=== PATIENT | male | born 1955 | race Caucasian/White ===

== ENCOUNTER 2020-07-20 07:58 | Inpatient (IN) | payer BC ==
[2020-07-20] MEDS ORDERED: Sodium Chloride 0.9% 10 ML Syringe FLUSH PRN (08:24)
--- NOTE | 2020-07-20 09:24 | EDM.PDOC ---
ED HPI GENERAL MEDICAL PROBLEM - General Chief Complaint: Respiratory Problem Stated Complaint: COVID + SOB Time Seen by Provider: 07/20/20 08:17 Source of Information: Reports: Patient History Limitations: Reports: No Limitations - History of Present Illness INITIAL COMMENTS - FREE TEXT/NARRATIVE: The patient presents with shortness of breath, fever and generalized weakness. The patient's is COVID 19 positive. He got tested on Thursday and does not have results back yet. The patient has COPD. He has been more short of breath since Thursday. He is using his inhalers and it is not helping. He is not on oxygen at home. His oxygen saturations were 75% when he walked back. He has no chest pain. He denies having a cough. He has no abdominal pain. He does not have an appetite. He has no nausea, vomiting or diarrhea. He thinks he got infected from his brother. Onset: Gradual Duration: Week(s): Severity: Moderate Improves with: Reports: None Worsens with: Reports: None Associated Symptoms: Reports: Fever/Chills, Shortness of Breath. Denies: Chest Pain, Cough, Headaches, Nausea/Vomiting - Related Data Allergies Allergy/AdvReac Type Severity Reaction Status Date / Time No Known Allergies Allergy Verified 07/20/20 08:16 Home Meds: Home Meds Minocycline HCl 100 mg PO BID #20 tablet 04/30/14 [Rx] Omeprazole [Prilosec] 20 mg PO DAILY 04/30/14 [History] Theophylline 600 mg PO DAILY 04/30/14 [History] Tiotropium [Spiriva] 1 puff INH DAILY 04/30/14 [History] hydroCHLOROthiazide [Hydrochlorothiazide] 12.5 mg PO DAILY 04/30/14 [History] Albuterol Sulfate [Proair Digihaler] 90 mcg IH ASDIRECTED PRN 06/26/20 [History] Aspirin [Aspirin EC] 81 mg PO DAILY 06/26/20 [History] Fluticasone Propionate [Flonase] 2 spray NASBOTH BID 06/26/20 [History] Losartan [Cozaar] 50 mg PO DAILY 06/26/20 [History] Mometasone/Formoterol [Dulera 200 Mcg/5 Mcg Inhaler] 8.8 gm IH BID 06/26/20 [History] Pravastatin [Pravachol] 40 mg PO BEDTIME 06/26/20 [History] Tiotropium [Spiriva] 18 mcg INH BID 06/26/20 [History] Past Medical History HEENT History: Reports: Impaired Vision Other HEENT History: wears eyeglasses. Cardiovascular History: Reports: High Cholesterol, Hypertension Respiratory History: Reports: Bronchitis, Recurrent, COPD Gastrointestinal History: Reports: GERD - Infectious Disease History Infectious Disease History: Reports: Chicken Pox, Measles, Mumps - Past Surgical History GI Surgical History: Reports: Colonoscopy Social & Family History - Tobacco Use Tobacco Use Status *Q: Former Tobacco User Years of Tobacco use: 45 Packs/Tins Daily: 1 Used Tobacco, but Quit: Yes Month/Year Tobacco Last Used: oct 2011 - Caffeine Use Caffeine Use: Reports: None - Recreational Drug Use Recreational Drug Use: No ED ROS GENERAL - Review of Systems Review Of Systems: See Below Constitutional: Reports: Fever, Chills, Malaise, Weakness, Fatigue HEENT: Reports: No Symptoms Respiratory: Reports: Shortness of Breath. Denies: Cough Cardiovascular: Reports: No Symptoms Endocrine: Reports: No Symptoms GI/Abdominal: Reports: Decreased Appetite. Denies: Abdominal Pain, Diarrhea, Nausea, Vomiting : Reports: No Symptoms Musculoskeletal: Reports: No Symptoms ED EXAM, GENERAL - Physical Exam Exam: See Below Exam Limited By: No Limitations General Appearance: Alert, No Apparent Distress Ears: Normal External Exam Nose: Normal Inspection Head: Atraumatic, Normocephalic Neck: Normal Inspection Respiratory/Chest: No Respiratory Distress, Decreased Breath Sounds, Rhonchi Cardiovascular: Regular Rate, Rhythm, No Edema, No Murmur GI/Abdominal: Soft, Non-Tender, No Organomegaly, No Mass Back Exam: Normal Inspection Extremities: Normal Inspection #1 Interpretation EKG Date: 07/20/20 Time: 08:19 Rhythm: Other (sinus tachycardia) Rate (Beats/Min): 118 [place]: Normal P-Wave: Present QRS: Normal ST-T: Normal QT: Normal EKG Interpretation Comments: PVC Course - Vital Signs Last Recorded V/S: Last Vital Signs Temp 100.7 F H 07/20/20 07:58 Pulse 118 H 07/20/20 07:58 Resp 36 H 07/20/20 07:58 BP 149/86 H 07/20/20 07:58 Pulse Ox 75 L 07/20/20 07:58 - Orders/Labs/Meds Orders: Active Orders 24 hr Category Date Time Status Cardiac Monitoring [RC] . DIRECTED Care 07/20/20 08:24 Active EKG Documentation Completion [RC] STAT Care 07/20/20 08:25 Active Oxygen Therapy [RC] PRN Care 07/20/20 08:24 Active Peripheral IV Care [RC] . DIRECTED Care 07/20/20 08:25 Active Chest 1V Frontal [CR] Stat Exams 07/20/20 08:25 Taken CULTURE BLOOD [BC] Stat Lab 07/20/20 08:26 Ordered CULTURE BLOOD [BC] Stat Lab 07/20/20 08:26 Ordered Potassium Chloride [KCl 10 MEQ in Water 100 ML] 10 meq Med 07/20/20 10:00 Active Premix Bag 1 bag IV Q1H Sodium Chloride 0.9% [Normal Saline] 1,000 ml Med 07/20/20 10:15 Active IV ASDIRECTED Sodium Chloride 0.9% [Saline Flush] Med 07/20/20 08:24 Active 10 ml FLUSH ASDIRECTED PRN Blood Culture x2 Reflex Set [OM.PC] Stat Oth 07/20/20 08:26 Ordered Peripheral IV Insertion Adult [OM.PC] Stat Oth 07/20/20 08:24 Ordered Medication Orders Potassium Chloride 10 meq/ (Premix) 100 mls @ 100 mls/hr IV Q1H TEO Stop: 07/20/20 13:59 Last Admin: 07/20/20 10:17 Dose: 100 mls/hr Documented by: SULTANA Sodium Chloride (Normal Saline) 1,000 mls @ 150 mls/hr IV ASDIRECTED TEO Last Admin: 07/20/20 10:17 Dose: 150 mls/hr Documented by: SULTANA Sodium Chloride (Saline Flush) 10 ml FLUSH ASDIRECTED PRN PRN Reason: Keep Vein Open Last Admin: 07/20/20 08:50 Dose: 10 ml Documented by: SULTANA Labs: Laboratory Tests 07/20/20 07/20/20 07/20/20 Range/Units 08:42 08:50 08:50 WBC 7.86 (4.23-9.07) K/mm3 RBC 4.83 (4.63-6.08) M/mm3 Hgb 14.2 (13.7-17.5) gm/dl Hct 41.6 (40.1-51.0) % MCV 86.1 (79.0-92.2) fl MCH 29.4 (25.7-32.2) pg MCHC 34.1 (32.2-35.5) g/dl RDW Std Deviation 39.9 (35.1-43.9) fL Plt Count 411 H (163-337) K/mm3 MPV 8.5 L (9.4-12.3) fl Neut % (Auto) 90.2 H (34.0-67.9) % Lymph % (Auto) 5.9 L (21.8-53.1) % [place] % (Auto) 3.4 L (5.3-12.2) % Eos % (Auto) 0 L (0.8-7.0) Baso % (Auto) 0.0 L (0.1-1.2) % Neut # (Auto) 7.09 H (1.78-5.38) K/mm3 Lymph # (Auto) 0.46 L (1.32-3.57) K/mm3 [place] # (Auto) 0.27 L (0.30-0.82) K/mm3 Eos # (Auto) 0.00 L (0.04-0.54) K/mm3 Baso # (Auto) 0.00 L (0.01-0.08) K/mm3 Manual Slide Review Abnormal smear PT (9.7-11.7) SECONDS INR APTT (22-31) SECONDS D-Dimer, Quantitative (0.19-0.50) mg/L Puncture Site Rt radial ABG pH 7.51 H (7.35-7.45) ABG pCO2 29.5 L (35.0-45.0) mmHg ABG pO2 62.0 L (80.0-100.0) mmHg ABG HCO3 23.0 (22.0-26.0) meq/L ABG O2 Saturation 92.4 L (96.0-97.0) % ABG Base Excess 1.3 (-2-2.0) Nabeel Test Positive O2 Delivery Device Nasal cannula Oxygen Flow Rate 5.0 Sodium 136 (136-145) mEq/L Potassium 2.5 L (3.5-5.1) mEq/L Chloride 95 L (98-107) mEq/L Carbon Dioxide 24 (21-32) mEq/L Anion Gap 19.5 H (5-15) BUN 37 H (7-18) mg/dL Creatinine 1.6 H (0.7-1.3) mg/dL Est Cr Clr Drug Dosing 42.64 mL/min Estimated GFR (MDRD) 44 (>60) mL/min BUN/Creatinine Ratio 23.1 H (14-18) Glucose 132 H (80-115) mg/dL Lactic Acid (0.4-2.0) mmol/L Calcium 9.4 (8.5-10.1) mg/dL Ferritin (26-388) ng/ml Total Bilirubin 0.7 (0.2-1.0) mg/dL AST 65 H (15-37) U/L ALT 51 (16-63) U/L Alkaline Phosphatase 57 (46-116) U/L Lactate Dehydrogenase 516 H (85-227) U/L Troponin I 0.066 H* (0.00-0.056) ng/mL C-Reactive Protein 26.0 H* (<1.0) mg/dL NT-Pro-B Natriuret Pep (0-125) pg/mL Total Protein 7.9 (6.4-8.2) g/dl Albumin 2.9 L (3.4-5.0) g/dl Globulin 5.0 gm/dL Albumin/Globulin Ratio 0.6 L (1-2) 07/20/20 07/20/20 07/20/20 Range/Units 08:50 08:50 08:50 WBC (4.23-9.07) K/mm3 RBC (4.63-6.08) M/mm3 Hgb (13.7-17.5) gm/dl Hct (40.1-51.0) % MCV (79.0-92.2) fl MCH (25.7-32.2) pg MCHC (32.2-35.5) g/dl RDW Std Deviation (35.1-43.9) fL Plt Count (163-337) K/mm3 MPV (9.4-12.3) fl Neut % (Auto) (34.0-67.9) % Lymph % (Auto) (21.8-53.1) % [place] % (Auto) (5.3-12.2) % Eos % (Auto) (0.8-7.0) Baso % (Auto) (0.1-1.2) % Neut # (Auto) (1.78-5.38) K/mm3 Lymph # (Auto) (1.32-3.57) K/mm3 [place] # (Auto) (0.30-0.82) K/mm3 Eos # (Auto) (0.04-0.54) K/mm3 Baso # (Auto) (0.01-0.08) K/mm3 Manual Slide Review PT (9.7-11.7) SECONDS INR APTT (22-31) SECONDS D-Dimer, Quantitative (0.19-0.50) mg/L Puncture Site ABG pH (7.35-7.45) ABG pCO2 (35.0-45.0) mmHg ABG pO2 (80.0-100.0) mmHg ABG HCO3 (22.0-26.0) meq/L ABG O2 Saturation (96.0-97.0) % ABG Base Excess (-2-2.0) Nabeel Test O2 Delivery Device Oxygen Flow Rate Sodium (136-145) mEq/L Potassium (3.5-5.1) mEq/L Chloride (98-107) mEq/L Carbon Dioxide (21-32) mEq/L Anion Gap (5-15) BUN (7-18) mg/dL Creatinine (0.7-1.3) mg/dL Est Cr Clr Drug Dosing mL/min Estimated GFR (MDRD) (>60) mL/min BUN/Creatinine Ratio (14-18) Glucose (80-115) mg/dL Lactic Acid 1.8 (0.4-2.0) mmol/L Calcium (8.5-10.1) mg/dL Ferritin 1692 H (26-388) ng/ml Total Bilirubin (0.2-1.0) mg/dL AST (15-37) U/L ALT (16-63) U/L Alkaline Phosphatase (46-116) U/L Lactate Dehydrogenase (85-227) U/L Troponin I (0.00-0.056) ng/mL C-Reactive Protein (<1.0) mg/dL NT-Pro-B Natriuret Pep 261 H (0-125) pg/mL Total Protein (6.4-8.2) g/dl Albumin (3.4-5.0) g/dl Globulin gm/dL Albumin/Globulin Ratio (1-2) 07/20/20 Range/Units 09:01 WBC (4.23-9.07) K/mm3 RBC (4.63-6.08) M/mm3 Hgb (13.7-17.5) gm/dl Hct (40.1-51.0) % MCV (79.0-92.2) fl MCH (25.7-32.2) pg MCHC (32.2-35.5) g/dl RDW Std Deviation (35.1-43.9) fL Plt Count (163-337) K/mm3 MPV (9.4-12.3) fl Neut % (Auto) (34.0-67.9) % Lymph % (Auto) (21.8-53.1) % [place] % (Auto) (5.3-12.2) % Eos % (Auto) (0.8-7.0) Baso % (Auto) (0.1-1.2) % Neut # (Auto) (1.78-5.38) K/mm3 Lymph # (Auto) (1.32-3.57) K/mm3 [place] # (Auto) (0.30-0.82) K/mm3 Eos # (Auto) (0.04-0.54) K/mm3 Baso # (Auto) (0.01-0.08) K/mm3 Manual Slide Review PT 11.2 (9.7-11.7) SECONDS INR 1.05 APTT 27 (22-31) SECONDS D-Dimer, Quantitative 1.01 H (0.19-0.50) mg/L Puncture Site ABG pH (7.35-7.45) ABG pCO2 (35.0-45.0) mmHg ABG pO2 (80.0-100.0) mmHg ABG HCO3 (22.0-26.0) meq/L ABG O2 Saturation (96.0-97.0) % ABG Base Excess (-2-2.0) Nabeel Test O2 Delivery Device Oxygen Flow Rate Sodium (136-145) mEq/L Potassium (3.5-5.1) mEq/L Chloride (98-107) mEq/L Carbon Dioxide (21-32) mEq/L Anion Gap (5-15) BUN (7-18) mg/dL Creatinine (0.7-1.3) mg/dL Est Cr Clr Drug Dosing mL/min Estimated GFR (MDRD) (>60) mL/min BUN/Creatinine Ratio (14-18) Glucose (80-115) mg/dL Lactic Acid (0.4-2.0) mmol/L Calcium (8.5-10.1) mg/dL Ferritin (26-388) ng/ml Total Bilirubin (0.2-1.0) mg/dL AST (15-37) U/L ALT (16-63) U/L Alkaline Phosphatase (46-116) U/L Lactate Dehydrogenase (85-227) U/L Troponin I (0.00-0.056) ng/mL C-Reactive Protein (<1.0) mg/dL NT-Pro-B Natriuret Pep (0-125) pg/mL Total Protein (6.4-8.2) g/dl Albumin (3.4-5.0) g/dl Globulin gm/dL Albumin/Globulin Ratio (1-2) Meds: Medications Generic Name Dose Route Start Last Admin Trade Name Freq PRN Reason Stop Dose Admin Potassium Chloride 10 meq/ 100 mls @ 100 mls/hr 07/20/20 10:00 07/20/20 10:17 Premix IV 07/20/20 13:59 100 mls/hr Q1H TEO Administration Sodium Chloride 1,000 mls @ 150 mls/hr 07/20/20 10:15 07/20/20 10:17 Normal Saline IV 150 mls/hr ASDIRECTED TEO Administration Sodium Chloride 10 ml 07/20/20 08:24 07/20/20 08:50 Saline Flush FLUSH 10 ml ASDIRECTED PRN Administration Keep Vein Open - Re-Assessments/Exams Free Text/Narrative Re-Assessment/Exam: 07/20/20 09:25 I ordered oxygen, IV saline lock, labs, CXR, ABG, blood cultures and lactic acid. 07/20/20 10:42 His CXR shows lung choe show prominence to the pulmonary interstitium. M inimal ground-glass airspace disease at the lower lung choe bilaterally. Followup radiographs recommended after appropriate therapy. His WBC was normal. His platelets were elevated at 411. His D-dimer was elevated at 1.01. His pH was elevated at 7.51. His pCO2 was low at 29.5. His pO2 was low at 62. His O2 saturations were 92.4. His K was low at 2.5. I have ordered 40meq of KCl. His anion gap was elevated at 19.5. His creatinine is elevated at 1.6. His glucose is 132. His lactic acid is normal at 1.8. His ferritin is elevated at 1692. His AST is elevated at 65. His LDH is elevated at 516. His troponin is elevated at 0.066. His EKG shows a sinus tachycardia with no acute changes. His CRP is 26. I called the state and his test has not been done yet. They will be checking on it. I have ordered the 1 hour test for us. The patient does need to be admitted. I called Dr Correia and he agreed to the admission. Departure - Departure Time of Disposition: 10:50 Disposition: Admitted As Inpatient 67 Condition: Serious Clinical Impression: COVID-19, Pneumonia due to COVID-19 virus, Renal insufficiency, Hypokalemia, Hypoxia - Discharge Information Referrals: Serjio Pierce MD [Primary Care Provider] - Forms: ED Department Discharge Sepsis Event Note (ED) - Evaluation Sepsis Screening Result: No Definite Risk - Focused Exam Vital Signs: Vital Signs Temp Pulse Resp BP Pulse Ox 07/20/20 07:58 100.7 F H 118 H 36 H 149/86 H 75 L - My Orders Last 24 Hours: My Active Orders 07/20/20 08:24 Cardiac Monitoring [RC] . DIRECTED Oxygen Therapy [RC] PRN Sodium Chloride 0.9% [Saline Flush] 10 ml FLUSH ASDIRECTED PRN Peripheral IV Insertion Adult [OM.PC] Stat 07/20/20 08:25 EKG Documentation Completion [RC] STAT Peripheral IV Care [RC] . DIRECTED Chest 1V Frontal [CR] Stat 07/20/20 08:26 CULTURE BLOOD [BC] Stat CULTURE BLOOD [BC] Stat Blood Culture x2 Reflex Set [OM.PC] Stat 07/20/20 10:00 Potassium Chloride [KCl 10 MEQ in Water 100 ML] 10 meq Premix Bag 1 bag IV Q1H 07/20/20 10:15 Sodium Chloride 0.9% [Normal Saline] 1,000 ml IV ASDIRECTED - Assessment/Plan Last 24 Hours: My Active Orders 07/20/20 08:24 Cardiac Monitoring [RC] . DIRECTED Oxygen Therapy [RC] PRN Sodium Chloride 0.9% [Saline Flush] 10 ml FLUSH ASDIRECTED PRN Peripheral IV Insertion Adult [OM.PC] Stat 07/20/20 08:25 EKG Documentation Completion [RC] STAT Peripheral IV Care [RC] . DIRECTED Chest 1V Frontal [CR] Stat 07/20/20 08:26 CULTURE BLOOD [BC] Stat CULTURE BLOOD [BC] Stat Blood Culture x2 Reflex Set [OM.PC] Stat 07/20/20 10:00 Potassium Chloride [KCl 10 MEQ in Water 100 ML] 10 meq Premix Bag 1 bag IV Q1H 07/20/20 10:15 Sodium Chloride 0.9% [Normal Saline] 1,000 ml IV ASDIRECTED
[2020-07-20] MEDS ORDERED: Sodium Chloride 0.9% 1,000 ML IV SCH (10:15)
[2020-07-20] MEDS: Potassium Chloride 10 MEQ in Premix Bag 1 BAG IV SCH ×4 (10:17→15:20)
[2020-07-20] MEDS ORDERED: Acetaminophen 325 MG Tab PO PRN (11:43)
[2020-07-20] MEDS ORDERED: Albuterol 0.083% 2.5 MG/3 ML Neb Soln NEB PRN (11:43)
[2020-07-20] MEDS ORDERED: Ondansetron 4 MG/2 ML SDV IV PRN (11:43)
[2020-07-20] MEDS ORDERED: Sodium Chloride 0.9% 250 ML IV SCH (14:30)
--- NOTE | 2020-07-20 14:39 | PCM.HP.2 ---
H&P History of Present Illness - General Date of Service: 07/20/20 Admit Problem/Dx: Admission Diagnosis/Problem Admission Diagnosis/Problem Hypoxia Source of Information: Patient, Provider History Limitations: Reports: No Limitations - History of Present Illness Initial Comments - Free Text/Narative: The patient presents with shortness of breath, fever and generalized weakness. The patient's is COVID 19 positive. He states that his [id number] is also positive for COVID and was working with him in close contact about 2 weeks ago. He states he started feeling unwell about 7 days ago. Generalized fatigue and body aches. He denies headache and loss of taste or smell he also denies sore throat. However he states he does have a persistent nonproductive cough and diarrhea. He has also had a poor appetite. Denies any fever or chills. He got tested on Thursday and does not have results back yet. The patient has COPD. He has been more short of breath since Thursday. He is using his inhalers and it is not helping. He is not on oxygen at home. His oxygen saturations were 75% when he walked back. He has no chest pain. He has no abdominal pain. He does not have an appetite. - Related Data Allergies/Adverse Reactions: Allergies Allergy/AdvReac Type Severity Reaction Status Date / Time No Known Allergies Allergy Verified 07/20/20 13:24 Home Medications: Home Meds Minocycline HCl 100 mg PO BID #20 tablet 04/30/14 [Rx] Omeprazole [Prilosec] 20 mg PO DAILY 04/30/14 [History] Theophylline 600 mg PO DAILY 04/30/14 [History] Tiotropium [Spiriva] 1 puff INH DAILY 04/30/14 [History] hydroCHLOROthiazide [Hydrochlorothiazide] 12.5 mg PO DAILY 04/30/14 [History] Albuterol Sulfate [Proair Digihaler] 90 mcg IH ASDIRECTED PRN 06/26/20 [History] Aspirin [Aspirin EC] 81 mg PO DAILY 06/26/20 [History] Fluticasone Propionate [Flonase] 2 spray NASBOTH BID 06/26/20 [History] Losartan [Cozaar] 50 mg PO DAILY 06/26/20 [History] Mometasone/Formoterol [Dulera 200 Mcg/5 Mcg Inhaler] 8.8 gm IH BID 06/26/20 [History] Pravastatin [Pravachol] 40 mg PO BEDTIME 06/26/20 [History] Tiotropium [Spiriva] 18 mcg INH BID 06/26/20 [History] Past Medical History HEENT History: Reports: Impaired Vision Other HEENT History: wears eyeglasses. Cardiovascular History: Reports: High Cholesterol, Hypertension Respiratory History: Reports: Bronchitis, Recurrent, COPD Gastrointestinal History: Reports: GERD - Infectious Disease History Infectious Disease History: Reports: Chicken Pox, Measles, Mumps - Past Surgical History GI Surgical History: Reports: Colonoscopy Social & Family History - Family History Family Medical History: Noncontributory - Tobacco Use Tobacco Use Status *Q: Former Tobacco User Years of Tobacco use: 40 Packs/Tins Daily: 1 Used Tobacco, but Quit: Yes Month/Year Tobacco Last Used: oct 2011 - Caffeine Use Caffeine Use: Reports: None - Recreational Drug Use Recreational Drug Use: No H&P Review of Systems - Review of Systems: Review Of Systems: See Below General: Reports: Malaise, Weakness, Decreased Appetite HEENT: Denies: Headaches, Sore Throat Pulmonary: Reports: Shortness of Breath, Cough. Denies: Sputum Cardiovascular: Reports: No Symptoms Gastrointestinal: Reports: Diarrhea, Decreased Appetite. Denies: Nausea, Vomiting Genitourinary: Reports: No Symptoms Musculoskeletal: Reports: No Symptoms Skin: Reports: No Symptoms Psychiatric: Reports: No Symptoms Neurological: Reports: No Symptoms Hematologic/Lymphatic: Reports: No Symptoms Immunologic: Reports: No Symptoms Exam - Exam Exam: See Below - Vital Signs Vital Signs: Last Vital Signs Temp 98.5 F 07/20/20 12:48 Pulse 98 07/20/20 12:48 Resp 32 H 07/20/20 12:48 BP 110/64 07/20/20 12:48 Pulse Ox 90 L 07/20/20 12:48 Weight: 186 lb 6.413 oz - Exam Quality Assessment: Supplemental Oxygen (5 L per nasal cannula), DVT Prophylaxis (Will be on Lovenox) General: Alert, Oriented, Cooperative, Mild Distress HEENT: Conjunctiva Clear, EOMI, Hearing Intact, Mucosa Moist & Hernandez, Pupils Eq ual, Pupils Reactive Neck: Supple, Trachea Midline. No: Lymphadenopathy Lungs: Decreased Breath Sounds, Crackles (Fine crackles noted in the bases) Cardiovascular: Regular Rate, Regular Rhythm GI/Abdominal Exam: Normal Bowel Sounds, Soft, Non-Tender, No Distention (Male) Exam: Deferred Rectal (Males) Exam: Deferred Back Exam: Normal Inspection, Full Range of Motion Extremities: Normal Inspection, Normal Range of Motion, Non-Tender, No Pedal Edema, Normal Capillary Refill Peripheral Pulses: 2+: Radial (L), Radial (R), Dorsalis Pedis (L), Dorsalis Pedis (R) Skin: Warm, Dry, Intact Neurological: Cranial Nerves Intact Neuro Extensive - Mental Status: Alert, Oriented x3, Normal Mood/Affect, Normal Cognition, Memory Intact Psychiatric: Alert, Normal Affect, Normal Mood - Patient Data Lab Results Last 24 hrs: Laboratory Results - last 24 hr 07/20/20 07/20/20 07/20/20 Range/Units 08:42 08:50 08:50 WBC 7.86 (4.23-9.07) K/mm3 RBC 4.83 (4.63-6.08) M/mm3 Hgb 14.2 (13.7-17.5) gm/dl Hct 41.6 (40.1-51.0) % MCV 86.1 (79.0-92.2) fl MCH 29.4 (25.7-32.2) pg MCHC 34.1 (32.2-35.5) g/dl RDW Std Deviation 39.9 (35.1-43.9) fL Plt Count 411 H (163-337) K/mm3 MPV 8.5 L (9.4-12.3) fl Neut % (Auto) 90.2 H (34.0-67.9) % Lymph % (Auto) 5.9 L (21.8-53.1) % Ray % (Auto) 3.4 L (5.3-12.2) % Eos % (Auto) 0 L (0.8-7.0) Baso % (Auto) 0.0 L (0.1-1.2) % Neut # (Auto) 7.09 H (1.78-5.38) K/mm3 Lymph # (Auto) 0.46 L (1.32-3.57) K/mm3 Ray # (Auto) 0.27 L (0.30-0.82) K/mm3 Eos # (Auto) 0.00 L (0.04-0.54) K/mm3 Baso # (Auto) 0.00 L (0.01-0.08) K/mm3 Manual Slide Review Abnormal smear PT (9.7-11.7) SECONDS INR APTT (22-31) SECONDS D-Dimer, Quantitative (0.19-0.50) mg/L Puncture Site Rt radial ABG pH 7.51 H (7.35-7.45) ABG pCO2 29.5 L (35.0-45.0) mmHg ABG pO2 62.0 L (80.0-100.0) mmHg ABG HCO3 23.0 (22.0-26.0) meq/L ABG O2 Saturation 92.4 L (96.0-97.0) % ABG Base Excess 1.3 (-2-2.0) Nabeel Test Positive O2 Delivery Device Nasal cannula Oxygen Flow Rate 5.0 Sodium 136 (136-145) mEq/L Potassium 2.5 L (3.5-5.1) mEq/L Chloride 95 L (98-107) mEq/L Carbon Dioxide 24 (21-32) mEq/L Anion Gap 19.5 H (5-15) BUN 37 H (7-18) mg/dL Creatinine 1.6 H (0.7-1.3) mg/dL Est Cr Clr Drug Dosing 42.64 mL/min Estimated GFR (MDRD) 44 (>60) mL/min BUN/Creatinine Ratio 23.1 H (14-18) Glucose 132 H (80-115) mg/dL Lactic Acid (0.4-2.0) mmol/L Calcium 9.4 (8.5-10.1) mg/dL Ferritin (26-388) ng/ml Total Bilirubin 0.7 (0.2-1.0) mg/dL AST 65 H (15-37) U/L ALT 51 (16-63) U/L Alkaline Phosphatase 57 (46-116) U/L Lactate Dehydrogenase 516 H (85-227) U/L Troponin I 0.066 H* (0.00-0.056) ng/mL C-Reactive Protein 26.0 H* (<1.0) mg/dL NT-Pro-B Natriuret Pep (0-125) pg/mL Total Protein 7.9 (6.4-8.2) g/dl Albumin 2.9 L (3.4-5.0) g/dl Globulin 5.0 gm/dL Albumin/Globulin Ratio 0.6 L (1-2) Vitamin D 25-Hydroxy (30.0-100.0) ng/ml SARS-CoV-2 RNA (TIKA) (NEGATIVE) Blood Type 07/20/20 07/20/20 07/20/20 Range/Units 08:50 08:50 08:50 WBC (4.23-9.07) K/mm3 RBC (4.63-6.08) M/mm3 Hgb (13.7-17.5) gm/dl Hct (40.1-51.0) % MCV (79.0-92.2) fl MCH (25.7-32.2) pg MCHC (32.2-35.5) g/dl RDW Std Deviation (35.1-43.9) fL Plt Count (163-337) K/mm3 MPV (9.4-12.3) fl Neut % (Auto) (34.0-67.9) % Lymph % (Auto) (21.8-53.1) % Ray % (Auto) (5.3-12.2) % Eos % (Auto) (0.8-7.0) Baso % (Auto) (0.1-1.2) % Neut # (Auto) (1.78-5.38) K/mm3 Lymph # (Auto) (1.32-3.57) K/mm3 Ray # (Auto) (0.30-0.82) K/mm3 Eos # (Auto) (0.04-0.54) K/mm3 Baso # (Auto) (0.01-0.08) K/mm3 Manual Slide Review PT (9.7-11.7) SECONDS INR APTT (22-31) SECONDS D-Dimer, Quantitative (0.19-0.50) mg/L Puncture Site ABG pH (7.35-7.45) ABG pCO2 (35.0-45.0) mmHg ABG pO2 (80.0-100.0) mmHg ABG HCO3 (22.0-26.0) meq/L ABG O2 Saturation (96.0-97.0) % ABG Base Excess (-2-2.0) Nabeel Test O2 Delivery Device Oxygen Flow Rate Sodium (136-145) mEq/L Potassium (3.5-5.1) mEq/L Chloride (98-107) mEq/L Carbon Dioxide (21-32) mEq/L Anion Gap (5-15) BUN (7-18) mg/dL Creatinine (0.7-1.3) mg/dL Est Cr Clr Drug Dosing mL/min Estimated GFR (MDRD) (>60) mL/min BUN/Creatinine Ratio (14-18) Glucose (80-115) mg/dL Lactic Acid 1.8 (0.4-2.0) mmol/L Calcium (8.5-10.1) mg/dL Ferritin 1692 H (26-388) ng/ml Total Bilirubin (0.2-1.0) mg/dL AST (15-37) U/L ALT (16-63) U/L Alkaline Phosphatase (46-116) U/L Lactate Dehydrogenase (85-227) U/L Troponin I (0.00-0.056) ng/mL C-Reactive Protein (<1.0) mg/dL NT-Pro-B Natriuret Pep 261 H (0-125) pg/mL Total Protein (6.4-8.2) g/dl Albumin (3.4-5.0) g/dl Globulin gm/dL Albumin/Globulin Ratio (1-2) Vitamin D 25-Hydroxy (30.0-100.0) ng/ml SARS-CoV-2 RNA (TIKA) (NEGATIVE) Blood Type 07/20/20 07/20/20 07/20/20 Range/Units 08:50 08:50 09:01 WBC (4.23-9.07) K/mm3 RBC (4.63-6.08) M/mm3 Hgb (13.7-17.5) gm/dl Hct (40.1-51.0) % MCV (79.0-92.2) fl MCH (25.7-32.2) pg MCHC (32.2-35.5) g/dl RDW Std Deviation (35.1-43.9) fL Plt Count (163-337) K/mm3 MPV (9.4-12.3) fl Neut % (Auto) (34.0-67.9) % Lymph % (Auto) (21.8-53.1) % Ray % (Auto) (5.3-12.2) % Eos % (Auto) (0.8-7.0) Baso % (Auto) (0.1-1.2) % Neut # (Auto) (1.78-5.38) K/mm3 Lymph # (Auto) (1.32-3.57) K/mm3 Ray # (Auto) (0.30-0.82) K/mm3 Eos # (Auto) (0.04-0.54) K/mm3 Baso # (Auto) (0.01-0.08) K/mm3 Manual Slide Review PT 11.2 (9.7-11.7) SECONDS INR 1.05 APTT 27 (22-31) SECONDS D-Dimer, Quantitative 1.01 H (0.19-0.50) mg/L Puncture Site ABG pH (7.35-7.45) ABG pCO2 (35.0-45.0) mmHg ABG pO2 (80.0-100.0) mmHg ABG HCO3 (22.0-26.0) meq/L ABG O2 Saturation (96.0-97.0) % ABG Base Excess (-2-2.0) Nabeel Test O2 Delivery Device Oxygen Flow Rate Sodium (136-145) mEq/L Potassium (3.5-5.1) mEq/L Chloride (98-107) mEq/L Carbon Dioxide (21-32) mEq/L Anion Gap (5-15) BUN (7-18) mg/dL Creatinine (0.7-1.3) mg/dL Est Cr Clr Drug Dosing mL/min Estimated GFR (MDRD) (>60) mL/min BUN/Creatinine Ratio (14-18) Glucose (80-115) mg/dL Lactic Acid (0.4-2.0) mmol/L Calcium (8.5-10.1) mg/dL Ferritin (26-388) ng/ml Total Bilirubin (0.2-1.0) mg/dL AST (15-37) U/L ALT (16-63) U/L Alkaline Phosphatase (46-116) U/L Lactate Dehydrogenase (85-227) U/L Troponin I (0.00-0.056) ng/mL C-Reactive Protein (<1.0) mg/dL NT-Pro-B Natriuret Pep (0-125) pg/mL Total Protein (6.4-8.2) g/dl Albumin (3.4-5.0) g/dl Globulin gm/dL Albumin/Globulin Ratio (1-2) Vitamin D 25-Hydroxy 29.5 L (30.0-100.0) ng/ml SARS-CoV-2 RNA (TIKA) (NEGATIVE) Blood Type O POSITIVE 07/20/20 07/20/20 Range/Units 11:25 13:05 WBC (4.23-9.07) K/mm3 RBC (4.63-6.08) M/mm3 Hgb (13.7-17.5) gm/dl Hct (40.1-51.0) % MCV (79.0-92.2) fl MCH (25.7-32.2) pg MCHC (32.2-35.5) g/dl RDW Std Deviation (35.1-43.9) fL Plt Count (163-337) K/mm3 MPV (9.4-12.3) fl Neut % (Auto) (34.0-67.9) % Lymph % (Auto) (21.8-53.1) % Ray % (Auto) (5.3-12.2) % Eos % (Auto) (0.8-7.0) Baso % (Auto) (0.1-1.2) % Neut # (Auto) (1.78-5.38) K/mm3 Lymph # (Auto) (1.32-3.57) K/mm3 Ray # (Auto) (0.30-0.82) K/mm3 Eos # (Auto) (0.04-0.54) K/mm3 Baso # (Auto) (0.01-0.08) K/mm3 Manual Slide Review PT (9.7-11.7) SECONDS INR APTT (22-31) SECONDS D-Dimer, Quantitative (0.19-0.50) mg/L Puncture Site ABG pH (7.35-7.45) ABG pCO2 (35.0-45.0) mmHg ABG pO2 (80.0-100.0) mmHg ABG HCO3 (22.0-26.0) meq/L ABG O2 Saturation (96.0-97.0) % ABG Base Excess (-2-2.0) Nabeel Test O2 Delivery Device Oxygen Flow Rate Sodium (136-145) mEq/L Potassium (3.5-5.1) mEq/L Chloride (98-107) mEq/L Carbon Dioxide (21-32) mEq/L Anion Gap (5-15) BUN (7-18) mg/dL Creatinine (0.7-1.3) mg/dL Est Cr Clr Drug Dosing mL/min Estimated GFR (MDRD) (>60) mL/min BUN/Creatinine Ratio (14-18) Glucose (80-115) mg/dL Lactic Acid (0.4-2.0) mmol/L Calcium (8.5-10.1) mg/dL Ferritin (26-388) ng/ml Total Bilirubin (0.2-1.0) mg/dL AST (15-37) U/L ALT (16-63) U/L Alkaline Phosphatase (46-116) U/L Lactate Dehydrogenase (85-227) U/L Troponin I 0.063 H* (0.00-0.056) ng/mL C-Reactive Protein (<1.0) mg/dL NT-Pro-B Natriuret Pep (0-125) pg/mL Total Protein (6.4-8.2) g/dl Albumin (3.4-5.0) g/dl Globulin gm/dL Albumin/Globulin Ratio (1-2) Vitamin D 25-Hydroxy (30.0-100.0) ng/ml SARS-CoV-2 RNA (TIKA) Positive H (NEGATIVE) Blood Type Result Diagrams: 07/20/20 08:50 07/20/20 08:50 Sepsis Event Note - Evaluation Sepsis Screening Result: No Definite Risk - Focused Exam Vital Signs: Vital Signs Temp Pulse Resp BP Pulse Ox 07/20/20 12:48 98.5 F 98 32 H 110/64 90 L 07/20/20 07:58 100.7 F H 118 H 36 H 149/86 H 75 L - Problem List (1) COVID-19 SNOMED Code(s): 134743165 ICD Code: U07.1 - COVID-19 Status: Acute Priority: High Current Visit: Yes (2) Hypokalemia SNOMED Code(s): 43898507 ICD Code: E87.6 - HYPOKALEMIA Status: Acute Priority: High Current Visit: Yes (3) Hypoxia SNOMED Code(s): 277796514 ICD Code: R09.02 - HYPOXEMIA Status: Acute Priority: High Current Visit: Yes (4) Pneumonia due to COVID-19 virus SNOMED Code(s): 935759423069814609 ICD Code: U07.1 - COVID-19; J12.89 - OTHER VIRAL PNEUMONIA Status: Acute Priority: High Current Visit: Yes (5) Renal insufficiency SNOMED Code(s): 079315223, 881506178 ICD Code: N28.9 - DISORDER OF KIDNEY AND URETER, UNSPECIFIED Status: Acute Priority: High Current Visit: Yes Problem List Initiated/Reviewed/Updated: Yes Orders Last 24hrs: Active Orders 24 hr Category Date Time Status Patient Status [ADT] Routine ADT 07/20/20 11:58 Active Cardiac Monitoring [RC] . DIRECTED Care 07/20/20 08:24 Active EKG Documentation Completion [RC] STAT Care 07/20/20 08:25 Active Height and Weight [RC] 04 Care 07/20/20 11:43 Active Incentive Spirometry [RT Incentive Spirometry] [RC] Care 07/20/20 12:06 Active Q1HWA Nurse Communication: Isolation [RC] ASDIRECTED Care 07/20/20 12:09 Active Oxygen Therapy [RC] PRN Care 07/20/20 08:24 Active Oxygen Therapy [RC] PRN Care 07/20/20 11:58 Active Peripheral IV Care [RC] . DIRECTED Care 07/20/20 08:25 Active Pulse Oximetry [RC] CONTINUOUS Care 07/20/20 12:00 Active RT Aerosol Therapy [RC] ASDIRECTED Care 07/20/20 12:01 Active Up With Assistance [RC] ASDIRECTED Care 07/20/20 11:43 Active VTE/DVT Education [RC] BID Care 07/20/20 11:58 Active Verify Patient Consent Obtain [RC] ASDIRECTED Care 07/20/20 12:08 Active Vital Signs [RC] Q4H Care 07/20/20 11:58 Active Consult to Meat Grading Machine Operator [CONS] Routine Cons 07/20/20 11:43 Active Consult to Spiritual Care [CONS] Routine Cons 07/20/20 11:43 Active Respiratory Care Assess and Treatment [CONS] Routine Cons 07/20/20 11:43 Active Regular Diet [DIET] Diet 07/20/20 Lunch Active Chest 1V Frontal [CR] Stat Exams 07/20/20 08:25 Taken ABO/RH TYPE [BBK] Routine Lab 07/20/20 08:50 Results C-REACTIVE PROTEIN [CHEM] DAILY Lab 07/21/20 05:11 Ordered C-REACTIVE PROTEIN [CHEM] DAILY Lab 07/22/20 05:11 Ordered C-REACTIVE PROTEIN [CHEM] DAILY Lab 07/23/20 05:11 Ordered C-REACTIVE PROTEIN [CHEM] DAILY Lab 07/24/20 05:11 Ordered C-REACTIVE PROTEIN [CHEM] DAILY Lab 07/25/20 05:11 Ordered CBC WITH AUTO DIFF [HEME] DAILY Lab 07/21/20 05:11 Ordered CBC WITH AUTO DIFF [HEME] DAILY Lab 07/22/20 05:11 Ordered CBC WITH AUTO DIFF [HEME] DAILY Lab 07/23/20 05:11 Ordered CBC WITH AUTO DIFF [HEME] DAILY Lab 07/24/20 05:11 Ordered CBC WITH AUTO DIFF [HEME] DAILY Lab 07/25/20 05:11 Ordered COMPREHENSIVE METABOLIC PN,CMP [CHEM] DAILY Lab 07/21/20 05:11 Ordered COMPREHENSIVE METABOLIC PN,CMP [CHEM] DAILY Lab 07/22/20 05:11 Ordered COMPREHENSIVE METABOLIC PN,CMP [CHEM] DAILY Lab 07/23/20 05:11 Ordered COMPREHENSIVE METABOLIC PN,CMP [CHEM] DAILY Lab 07/24/20 05:11 Ordered COMPREHENSIVE METABOLIC PN,CMP [CHEM] DAILY Lab 07/25/20 05:11 Ordered CULTURE BLOOD [BC] Stat Lab 07/20/20 08:26 Ordered CULTURE BLOOD [BC] Stat Lab 07/20/20 08:26 Ordered D-DIMER QUANTITATIVE [COAG] DAILY Lab 07/21/20 05:11 Ordered D-DIMER QUANTITATIVE [COAG] DAILY Lab 07/22/20 05:11 Ordered D-DIMER QUANTITATIVE [COAG] DAILY Lab 07/23/20 05:11 Ordered D-DIMER QUANTITATIVE [COAG] DAILY Lab 07/24/20 05:11 Ordered D-DIMER QUANTITATIVE [COAG] DAILY Lab 07/25/20 05:11 Ordered FRESH FROZEN PLASMA [BBK] Routine Lab 07/20/20 08:50 Results MAGNESIUM [CHEM] DAILY Lab 07/21/20 05:11 Ordered MAGNESIUM [CHEM] DAILY Lab 07/22/20 05:11 Ordered MAGNESIUM [CHEM] DAILY Lab 07/23/20 05:11 Ordered MAGNESIUM [CHEM] DAILY Lab 07/24/20 05:11 Ordered MAGNESIUM [CHEM] DAILY Lab 07/25/20 05:11 Ordered PHOSPHORUS [CHEM] DAILY Lab 07/21/20 05:11 Ordered PHOSPHORUS [CHEM] DAILY Lab 07/22/20 05:11 Ordered PHOSPHORUS [CHEM] DAILY Lab 07/23/20 05:11 Ordered PHOSPHORUS [CHEM] DAILY Lab 07/24/20 05:11 Ordered PHOSPHORUS [CHEM] DAILY Lab 07/25/20 05:11 Ordered PROCALCITONIN [REF] Stat Lab 07/20/20 08:50 Received THEOPHYLLINE [REF] Stat Lab 07/20/20 08:50 Received Acetaminophen [TylenoL] Med 07/20/20 11:43 Active 650 mg PO Q4H PRN Albuterol [Proventil Neb Soln] Med 07/20/20 11:43 Active 2.5 mg NEB Q2H PRN Enoxaparin [Lovenox] Med 07/20/20 12:15 Active 40 mg SUBCUT Q12H Ondansetron [Zofran] Med 07/20/20 11:43 Active 4 mg IV Q6H PRN Remdesivir (Eua) [Remdesivir (EUA)] 100 mg Med 07/21/20 12:30 Active Sodium Chloride 0.9% [Normal Saline] 100 ml IV Q24H Sodium Chloride 0.9% [Normal Saline] 1,000 ml Med 07/20/20 10:15 Active IV ASDIRECTED Sodium Chloride 0.9% [Normal Saline] 250 ml Med 07/20/20 14:30 Active IV ASDIRECTED Sodium Chloride 0.9% [Saline Flush] Med 07/20/20 08:24 Active 10 ml FLUSH ASDIRECTED PRN dexAMETHasone Med 07/20/20 12:15 Active 6 mg PO DAILY Blood Culture x2 Reflex Set [OM.PC] Stat Oth 07/20/20 08:26 Ordered Isolation [COMM] Stat Oth 07/20/20 12:09 Ordered Peripheral IV Insertion Adult [OM.PC] Stat Oth 07/20/20 08:24 Ordered RT Acapella [RESPCARE] Routine Oth 07/20/20 12:09 Active Transfuse Fresh Frozen Plasma [COMM] Routine Oth 07/20/20 12:08 Ordered Resuscitation Status Routine Resus Stat 07/20/20 11:43 Ordered Medication Orders Acetaminophen (Tylenol) 650 mg PO Q4H PRN PRN Reason: Pain (Mild 1-3)/fever Albuterol (Proventil Neb Soln) 2.5 mg NEB Q2H PRN PRN Reason: Shortness Of Breath/wheezing Dexamethasone (Dexamethasone) 6 mg PO DAILY [facility] Stop: 07/29/20 09:01 Enoxaparin Sodium (Lovenox) 40 mg SUBCUT Q12H TEO Sodium Chloride (Normal Saline) 1,000 mls @ 150 mls/hr IV ASDIRECTED [facility] Last Admin: 07/20/20 10:17 Dose: 150 mls/hr Documented by: SULTANA Remdesivir 100 mg/ Sodium (Chloride) 100 mls @ 100 mls/hr IV Q24H TEO Stop: 07/24/20 13:29 Sodium Chloride (Normal Saline) 250 mls @ 125 mls/hr IV ASDIRECTED [facility] Stop: 07/20/20 23:00 Ondansetron HCl (Zofran) 4 mg IV Q6H PRN PRN Reason: Nausea/Vomiting Sodium Chloride (Saline Flush) 10 ml FLUSH ASDIRECTED PRN PRN Reason: Keep Vein Open Last Admin: 07/20/20 08:50 Dose: 10 ml Documented by: SULTANA Assessment/Plan Comment:: 07/20/10 * 1 week history of weakness, general malaise, poor appetite, shortness of melina ath and diarrhea * History of exposure to COVID-19 * History of COPD * Chest x-ray shows lung choe show prominence to the pulmonary interstitium. Minimal groundglass airspace disease at the lower lung choe bilaterally. * The patient did receive 40 mEq of potassium IV in the ER. Lab results: * Platelet count 411 * Potassium 2.5 * Anion gap 19.5 * BUN 37 * Creatinine 1.6 * GFR 44 * Glucose 132 * LDH 516 * Troponin 0 0.066 * C-reactive protein 26.0 * Lactic acid 1.8 * Ferritin 1692 * BNP 261 * D-dimer 1.01 Arterial blood gases: * pH 7.51 * PCO2 29.5 * PO2 62.0 * HCO3 23.0 * Currently on 5 L per nasal cannula Vital signs: * Temperature 100.7 * Pulse 118 * Respiratory rate 36 * Blood pressure 149/86 * Pulse ox 75% on room air; 90% on 5 L per nasal cannula Plan: * Start remdesivir. The risks and benefits were discussed with the patient. I offered him the patient and caregiver TIFFANY remdesivir fact sheet to read and review. I stated the drug has been approved by an emergency use authorization process and has not fully been FDA reviewed or approved. The patient meets the [place] requirements. I shared that the drug may cause liver abnormalities and infusion related side effects. Additionally, other side effects are possible but not shown as the drug has had limited studies. I discussed there are other potential treatment options that are not currently FDA approved to treat COVID-19. Offered opportunity to ask questions and all questions were answered. The patient voiced understanding and agreed to proceed with the treatment for himself. * Start dexamethasone * Give 2 units of convalescent plasma. Consent was obtained prior. I spoke with him to provide information about convalescent plasma for himself. I offered him the fax sheet for patients and parents/caregivers for COVID-19 convalescent plasma to read and review. I stated the therapy has been approved by an emergency youth authorization process and has not fully been FDA reviewed or approved. I shared potential risks from the therapy including transmission of blood-borne pathogens such as HIV and hepatitis C, allergic and transfusion related reactions, post transfusion purpura. Additionally theoretical risks including a phenomenon called antibody dependent enhancement of infection such as is seen in dengue or attenuation of an immune response that may make patients more susceptible to reinfection. I discussed there are other potential treatment options that are currently not FDA approved to treat COVID-19. Offered opportunity to ask questions and all questions were answered. The patient voiced understanding and agreed to proceed with the treatment for himself. * Incentive spirometry * RT to titrate oxygen * PRN albuterol * Monitor for hypoxemia * Monitor lab work and replace electrolytes as needed * Renally dose medications * Continue home statin * Dietary consult * social services director and discharge planning consult * Theophylline level * Repeat troponin COVID-19,Hypoxia, Pneumonia due to COVID-19 virus -Remdesivir -Convalescent plasma -Dexamethasone -Monitor for hypoxia -RT to titrate O2 -IS -Albuterol nebs prn Hypokalemia -received 40meq KCL in ED -recheck labs in the am Renal insufficiency -renally dose medication -recheck labs in the am PROPHYLAXIS: DVT: Lovenox CODE STATUS: Full Code Disposition: Patient will be admitted to [facility] with telemetry and continuous pulse ox monitoring. social services director to consult for discharge planning. Dietary to c onsult for caloric needs. The patient will likely be here greater than 96 hours due to needing treatment for COVID. - Mortality Measure Prognosis:: Good
[2020-07-20] MEDS: Enoxaparin 40 MG/0.4 ML Syringe SUBCUT SCH ×2 (15:20→23:38)
[2020-07-20] MEDS: Dexamethasone 4 MG Tab PO SCH (15:20)
[2020-07-20] MEDS ORDERED: Potassium Chloride 20 MEQ Tab.ER PO ONE (21:00)
[2020-07-20] MEDS: Fluticasone Propionate Nasal Spray 16 GM Bottle NASBOTH SCH (21:06)
[2020-07-20] MEDS: Simvastatin 20 MG Tab PO SCH (21:07)
[2020-07-20] MEDS: Formoterol/Mometasone 200-5 MCG 13 GM Inhaler INH SCH (21:18)
[2020-07-20] MEDS: Glycopyrrolate 15.6 MCG Cap.W.Dev Kit of 6 IH SCH (21:19)
[2020-07-21] MEDS: Albuterol 6.7 GM Inhaler INH PRN ×2 (01:42→21:25)
[2020-07-21] MEDS: Pantoprazole 40 MG Tab.CR PO SCH (07:37)
[2020-07-21] MEDS: Glycopyrrolate 15.6 MCG Cap.W.Dev Kit of 6 IH SCH ×2 (08:29→21:24)
[2020-07-21] MEDS: Formoterol/Mometasone 200-5 MCG 13 GM Inhaler INH SCH ×2 (08:29→21:24)
--- NOTE | 2020-07-21 09:12 | PCM.PN ---
- General Info Date of Service: 07/21/20 Admission Dx/Problem (Free Text): Admission Diagnosis/Problem Admission Diagnosis/Problem Hypoxia Subjective Update: The patient is a 64-year-old gentleman who was admitted to acute hospitalization yesterday admitted for hypoxia and shortness of breath. Patient today says he feels still feels short of breath. He has been having poor appetite. The patient denies any pain. Functional Status: Reports: Pain Controlled - Review of Systems General: Reports: Weakness, Fatigue. Denies: Appetite HEENT: Reports: No Symptoms Pulmonary: Reports: Shortness of Breath, Cough Cardiovascular: Reports: No Symptoms Gastrointestinal: Reports: No Symptoms Genitourinary: Reports: No Symptoms Musculoskeletal: Reports: No Symptoms Skin: Reports: No Symptoms Neurological: Reports: No Symptoms Psychiatric: Reports: No Symptoms - Patient Data Vitals - Most Recent: Last Vital Signs Temp 36.5 C 07/21/20 07:50 Pulse 87 07/21/20 07:50 Resp 16 07/21/20 07:50 BP 121/83 07/21/20 07:50 Pulse Ox 90 L 07/21/20 08:33 Weight - Most Recent: 84.867 kg I&O - Last 24 Hours: Intake & Output 07/20/20 07/21/20 07/21/20 22:59 06:59 14:59 Intake Total 1820 1400 Output Total 250 1250 Balance 1570 150 Lab Results Last 24 Hours: Laboratory Results - last 24 hr 07/20/20 07/20/20 07/20/20 Range/Units 08:50 08:50 08:50 WBC (4.23-9.07) K/mm3 RBC (4.63-6.08) M/mm3 Hgb (13.7-17.5) gm/dl Hct (40.1-51.0) % MCV (79.0-92.2) fl MCH (25.7-32.2) pg MCHC (32.2-35.5) g/dl RDW Std Deviation (35.1-43.9) fL Plt Count (163-337) K/mm3 MPV (9.4-12.3) fl Neut % (Auto) (34.0-67.9) % Lymph % (Auto) (21.8-53.1) % Green % (Auto) (5.3-12.2) % Eos % (Auto) (0.8-7.0) Baso % (Auto) (0.1-1.2) % Neut # (Auto) (1.78-5.38) K/mm3 Lymph # (Auto) (1.32-3.57) K/mm3 Green # (Auto) (0.30-0.82) K/mm3 Eos # (Auto) (0.04-0.54) K/mm3 Baso # (Auto) (0.01-0.08) K/mm3 Manual Slide Review Abnormal smear PT (9.7-11.7) SECONDS INR APTT (22-31) SECONDS D-Dimer, Quantitative (0.19-0.50) mg/L Sodium 136 (136-145) mEq/L Potassium 2.5 L (3.5-5.1) mEq/L Chloride 95 L (98-107) mEq/L Carbon Dioxide 24 (21-32) mEq/L Anion Gap 19.5 H (5-15) BUN 37 H (7-18) mg/dL Creatinine 1.6 H (0.7-1.3) mg/dL Est Cr Clr Drug Dosing 42.64 mL/min Estimated GFR (MDRD) 44 (>60) mL/min BUN/Creatinine Ratio 23.1 H (14-18) Glucose 132 H (80-115) mg/dL Lactic Acid (0.4-2.0) mmol/L Calcium 9.4 (8.5-10.1) mg/dL Phosphorus (2.6-4.7) mg/dL Magnesium (1.8-2.4) mg/dl Ferritin (26-388) ng/ml Total Bilirubin 0.7 (0.2-1.0) mg/dL AST 65 H (15-37) U/L ALT 51 (16-63) U/L Alkaline Phosphatase 57 (46-116) U/L Lactate Dehydrogenase 516 H (85-227) U/L Troponin I 0.066 H* (0.00-0.056) ng/mL C-Reactive Protein 26.0 H* (<1.0) mg/dL NT-Pro-B Natriuret Pep 261 H (0-125) pg/mL Total Protein 7.9 (6.4-8.2) g/dl Albumin 2.9 L (3.4-5.0) g/dl Globulin 5.0 gm/dL Albumin/Globulin Ratio 0.6 L (1-2) Vitamin D 25-Hydroxy (30.0-100.0) ng/ml SARS-CoV-2 RNA (TIKA) (NEGATIVE) Blood Type 07/20/20 07/20/20 07/20/20 Range/Units 08:50 08:50 08:50 WBC (4.23-9.07) K/mm3 RBC (4.63-6.08) M/mm3 Hgb (13.7-17.5) gm/dl Hct (40.1-51.0) % MCV (79.0-92.2) fl MCH (25.7-32.2) pg MCHC (32.2-35.5) g/dl RDW Std Deviation (35.1-43.9) fL Plt Count (163-337) K/mm3 MPV (9.4-12.3) fl Neut % (Auto) (34.0-67.9) % Lymph % (Auto) (21.8-53.1) % Green % (Auto) (5.3-12.2) % Eos % (Auto) (0.8-7.0) Baso % (Auto) (0.1-1.2) % Neut # (Auto) (1.78-5.38) K/mm3 Lymph # (Auto) (1.32-3.57) K/mm3 Green # (Auto) (0.30-0.82) K/mm3 Eos # (Auto) (0.04-0.54) K/mm3 Baso # (Auto) (0.01-0.08) K/mm3 Manual Slide Review PT (9.7-11.7) SECONDS INR APTT (22-31) SECONDS D-Dimer, Quantitative (0.19-0.50) mg/L Sodium (136-145) mEq/L Potassium (3.5-5.1) mEq/L Chloride (98-107) mEq/L Carbon Dioxide (21-32) mEq/L Anion Gap (5-15) BUN (7-18) mg/dL Creatinine (0.7-1.3) mg/dL Est Cr Clr Drug Dosing mL/min Estimated GFR (MDRD) (>60) mL/min BUN/Creatinine Ratio (14-18) Glucose (80-115) mg/dL Lactic Acid 1.8 (0.4-2.0) mmol/L Calcium (8.5-10.1) mg/dL Phosphorus (2.6-4.7) mg/dL Magnesium (1.8-2.4) mg/dl Ferritin 1692 H (26-388) ng/ml Total Bilirubin (0.2-1.0) mg/dL AST (15-37) U/L ALT (16-63) U/L Alkaline Phosphatase (46-116) U/L Lactate Dehydrogenase (85-227) U/L Troponin I (0.00-0.056) ng/mL C-Reactive Protein (<1.0) mg/dL NT-Pro-B Natriuret Pep (0-125) pg/mL Total Protein (6.4-8.2) g/dl Albumin (3.4-5.0) g/dl Globulin gm/dL Albumin/Globulin Ratio (1-2) Vitamin D 25-Hydroxy 29.5 L (30.0-100.0) ng/ml SARS-CoV-2 RNA (TIKA) (NEGATIVE) Blood Type 07/20/20 07/20/20 07/20/20 Range/Units 08:50 09:01 11:25 WBC (4.23-9.07) K/mm3 RBC (4.63-6.08) M/mm3 Hgb (13.7-17.5) gm/dl Hct (40.1-51.0) % MCV (79.0-92.2) fl MCH (25.7-32.2) pg MCHC (32.2-35.5) g/dl RDW Std Deviation (35.1-43.9) fL Plt Count (163-337) K/mm3 MPV (9.4-12.3) fl Neut % (Auto) (34.0-67.9) % Lymph % (Auto) (21.8-53.1) % Green % (Auto) (5.3-12.2) % Eos % (Auto) (0.8-7.0) Baso % (Auto) (0.1-1.2) % Neut # (Auto) (1.78-5.38) K/mm3 Lymph # (Auto) (1.32-3.57) K/mm3 Green # (Auto) (0.30-0.82) K/mm3 Eos # (Auto) (0.04-0.54) K/mm3 Baso # (Auto) (0.01-0.08) K/mm3 Manual Slide Review PT 11.2 (9.7-11.7) SECONDS INR 1.05 APTT 27 (22-31) SECONDS D-Dimer, Quantitative 1.01 H (0.19-0.50) mg/L Sodium (136-145) mEq/L Potassium (3.5-5.1) mEq/L Chloride (98-107) mEq/L Carbon Dioxide (21-32) mEq/L Anion Gap (5-15) BUN (7-18) mg/dL Creatinine (0.7-1.3) mg/dL Est Cr Clr Drug Dosing mL/min Estimated GFR (MDRD) (>60) mL/min BUN/Creatinine Ratio (14-18) Glucose (80-115) mg/dL Lactic Acid (0.4-2.0) mmol/L Calcium (8.5-10.1) mg/dL Phosphorus (2.6-4.7) mg/dL Magnesium (1.8-2.4) mg/dl Ferritin (26-388) ng/ml Total Bilirubin (0.2-1.0) mg/dL AST (15-37) U/L ALT (16-63) U/L Alkaline Phosphatase (46-116) U/L Lactate Dehydrogenase (85-227) U/L Troponin I (0.00-0.056) ng/mL C-Reactive Protein (<1.0) mg/dL NT-Pro-B Natriuret Pep (0-125) pg/mL Total Protein (6.4-8.2) g/dl Albumin (3.4-5.0) g/dl Globulin gm/dL Albumin/Globulin Ratio (1-2) Vitamin D 25-Hydroxy (30.0-100.0) ng/ml SARS-CoV-2 RNA (TIKA) Positive H (NEGATIVE) Blood Type O POSITIVE 07/20/20 07/21/20 07/21/20 Range/Units 13:05 04:40 04:40 WBC 5.92 (4.23-9.07) K/mm3 RBC 4.16 L (4.63-6.08) M/mm3 Hgb 12.1 L D (13.7-17.5) gm/dl Hct 36.5 L (40.1-51.0) % MCV 87.7 (79.0-92.2) fl MCH 29.1 (25.7-32.2) pg MCHC 33.2 (32.2-35.5) g/dl RDW Std Deviation 39.8 (35.1-43.9) fL Plt Count 392 H (163-337) K/mm3 MPV 8.5 L (9.4-12.3) fl Neut % (Auto) 90.4 H (34.0-67.9) % Lymph % (Auto) 6.6 L (21.8-53.1) % Green % (Auto) 2.7 L (5.3-12.2) % Eos % (Auto) 0 L (0.8-7.0) Baso % (Auto) 0.0 L (0.1-1.2) % Neut # (Auto) 5.35 (1.78-5.38) K/mm3 Lymph # (Auto) 0.39 L (1.32-3.57) K/mm3 Green # (Auto) 0.16 L (0.30-0.82) K/mm3 Eos # (Auto) 0.00 L (0.04-0.54) K/mm3 Baso # (Auto) 0.00 L (0.01-0.08) K/mm3 Manual Slide Review Abnormal smear PT (9.7-11.7) SECONDS INR APTT (22-31) SECONDS D-Dimer, Quantitative 0.68 H (0.19-0.50) mg/L Sodium (136-145) mEq/L Potassium (3.5-5.1) mEq/L Chloride (98-107) mEq/L Carbon Dioxide (21-32) mEq/L Anion Gap (5-15) BUN (7-18) mg/dL Creatinine (0.7-1.3) mg/dL Est Cr Clr Drug Dosing mL/min Estimated GFR (MDRD) (>60) mL/min BUN/Creatinine Ratio (14-18) Glucose (80-115) mg/dL Lactic Acid (0.4-2.0) mmol/L Calcium (8.5-10.1) mg/dL Phosphorus (2.6-4.7) mg/dL Magnesium (1.8-2.4) mg/dl Ferritin (26-388) ng/ml Total Bilirubin (0.2-1.0) mg/dL AST (15-37) U/L ALT (16-63) U/L Alkaline Phosphatase (46-116) U/L Lactate Dehydrogenase (85-227) U/L Troponin I 0.063 H* (0.00-0.056) ng/mL C-Reactive Protein (<1.0) mg/dL NT-Pro-B Natriuret Pep (0-125) pg/mL Total Protein (6.4-8.2) g/dl Albumin (3.4-5.0) g/dl Globulin gm/dL Albumin/Globulin Ratio (1-2) Vitamin D 25-Hydroxy (30.0-100.0) ng/ml SARS-CoV-2 RNA (TIKA) (NEGATIVE) Blood Type 07/21/20 Range/Units 04:40 WBC (4.23-9.07) K/mm3 RBC (4.63-6.08) M/mm3 Hgb (13.7-17.5) gm/dl Hct (40.1-51.0) % MCV (79.0-92.2) fl MCH (25.7-32.2) pg MCHC (32.2-35.5) g/dl RDW Std Deviation (35.1-43.9) fL Plt Count (163-337) K/mm3 MPV (9.4-12.3) fl Neut % (Auto) (34.0-67.9) % Lymph % (Auto) (21.8-53.1) % Green % (Auto) (5.3-12.2) % Eos % (Auto) (0.8-7.0) Baso % (Auto) (0.1-1.2) % Neut # (Auto) (1.78-5.38) K/mm3 Lymph # (Auto) (1.32-3.57) K/mm3 Green # (Auto) (0.30-0.82) K/mm3 Eos # (Auto) (0.04-0.54) K/mm3 Baso # (Auto) (0.01-0.08) K/mm3 Manual Slide Review PT (9.7-11.7) SECONDS INR APTT (22-31) SECONDS D-Dimer, Quantitative (0.19-0.50) mg/L Sodium 135 L (136-145) mEq/L Potassium 3.0 L (3.5-5.1) mEq/L Chloride 97 L (98-107) mEq/L Carbon Dioxide 25 (21-32) mEq/L Anion Gap 16.0 H (5-15) BUN 29 H (7-18) mg/dL Creatinine 1.1 (0.7-1.3) mg/dL Est Cr Clr Drug Dosing 62.34 mL/min Estimated GFR (MDRD) > 60 (>60) mL/min BUN/Creatinine Ratio 26.4 H (14-18) Glucose 120 H (80-115) mg/dL Lactic Acid (0.4-2.0) mmol/L Calcium 8.6 (8.5-10.1) mg/dL Phosphorus 3.1 (2.6-4.7) mg/dL Magnesium 2.3 (1.8-2.4) mg/dl Ferritin (26-388) ng/ml Total Bilirubin 0.6 (0.2-1.0) mg/dL AST 64 H (15-37) U/L ALT 52 (16-63) U/L Alkaline Phosphatase 52 (46-116) U/L Lactate Dehydrogenase (85-227) U/L Troponin I (0.00-0.056) ng/mL C-Reactive Protein 21.8 H* (<1.0) mg/dL NT-Pro-B Natriuret Pep (0-125) pg/mL Total Protein 7.0 (6.4-8.2) g/dl Albumin 2.4 L (3.4-5.0) g/dl Globulin 4.6 gm/dL Albumin/Globulin Ratio 0.5 L (1-2) Vitamin D 25-Hydroxy (30.0-100.0) ng/ml SARS-CoV-2 RNA (TIKA) (NEGATIVE) Blood Type Med Orders - Current: Current Medications Acetaminophen (Tylenol) 650 mg PO Q4H PRN PRN Reason: Pain (Mild 1-3)/fever Albuterol (Proventil Neb Soln) 2.5 mg NEB Q2H PRN PRN Reason: Shortness Of Breath/wheezing Albuterol (Proventil Hfa) 0 gm INH Q4H PRN PRN Reason: Wheezing Last Admin: 07/21/20 01:42 Dose: 2 puff Documented by: Aspirin (Halfprin) 81 mg PO DAILY [facility] Dexamethasone (Dexamethasone) 6 mg PO DAILY [facility] Stop: 07/29/20 09:01 Last Admin: 07/20/20 15:20 Dose: 6 mg Documented by: Enoxaparin Sodium (Lovenox) 40 mg SUBCUT Q12H [facility] Last Admin: 07/20/20 23:38 Dose: 40 mg Documented by: Fluticasone Propionate (Flonase) 0 gm NASBOTH BID [facility] Last Admin: 07/20/20 21:06 Dose: 2 spray Documented by: Glycopyrrolate (Seebri Neohaler) 15.6 mcg IH BID [facility] Last Admin: 07/21/20 08:29 Dose: 1 cap.ec Documented by: Remdesivir 100 mg/ Sodium (Chloride) 100 mls @ 100 mls/hr IV Q24H [facility] Stop: 07/24/20 13:29 Mometasone Furoate/Formoterol Fumar (Dulera 200-5 Mcg) 0 puff INH BID [facility] Last Admin: 07/21/20 08:29 Dose: 2 puff Documented by: Ondansetron HCl (Zofran) 4 mg IV Q6H PRN PRN Reason: Nausea/Vomiting Pantoprazole Sodium (Protonix) 40 mg PO DAILY@0700 [facility] Last Admin: 07/21/20 07:37 Dose: 40 mg Documented by: Simvastatin (Zocor) 20 mg PO BEDTIME [facility] Last Admin: 07/20/20 21:07 Dose: 20 mg Documented by: Sodium Chloride (Saline Flush) 10 ml FLUSH ASDIRECTED PRN PRN Reason: Keep Vein Open Last Admin: 07/20/20 08:50 Dose: 10 ml Documented by: Theophylline (Theophylline Anhydrous) 600 mg PO DAILY [facility] Discontinued Medications Potassium Chloride 10 meq/ (Premix) 100 mls @ 100 mls/hr IV Q1H [facility] Stop: 07/20/20 13:59 Last Admin: 07/20/20 15:20 Dose: 100 mls/hr Documented by: Sodium Chloride (Normal Saline) 1,000 mls @ 150 mls/hr IV ASDIRECTED TEO Last Admin: 07/20/20 10:17 Dose: 150 mls/hr Documented by: Remdesivir 200 mg/ Sodium (Chloride) 250 mls @ 250 mls/hr IV ONETIME ONE Stop: 07/20/20 13:29 Last Admin: 07/20/20 13:00 Dose: 250 mls/hr Documented by: Sodium Chloride (Normal Saline) 250 mls @ 125 mls/hr IV ASDIRECTED TEO Stop: 07/20/20 23:00 Last Admin: 07/20/20 15:26 Dose: 125 mls/hr Documented by: Potassium Chloride (Klor-Con M20) 40 meq PO ONETIME ONE Stop: 07/20/20 21:01 Last Admin: 07/20/20 21:06 Dose: 40 meq Documented by: - Exam Quality Assessment: Supplemental Oxygen General: Alert, Oriented, Cooperative HEENT: Pupils Equal, Pupils Reactive, EOMI Neck: Supple, Trachea Midline Lungs: Decreased Breath Sounds, Crackles Cardiovascular: Regular Rate, Regular Rhythm GI/Abdominal Exam: Normal Bowel Sounds, Soft, No Distention (Male) Exam: Deferred Back Exam: Normal Inspection, Full Range of Motion Extremities: Normal Inspection, No Pedal Edema Skin: Warm, Dry, Intact Neurological: No New Focal Deficit Psy/Mental Status: Alert, Normal Affect Sepsis Event Note - Evaluation Sepsis Screening Result: No Definite Risk - Focused Exam Vital Signs: Vital Signs Temp Pulse Resp BP Pulse Ox Pulse Ox 07/21/20 08:33 90 L 07/21/20 07:50 36.5 C 87 16 121/83 88 L 07/21/20 02:58 36.9 C 82 20 124/79 93 L 07/21/20 01:46 93 L 07/20/20 23:36 37.2 C 89 18 125/74 92 L 07/20/20 21:19 94 L - Problem List & Annotations (1) Pneumonia due to COVID-19 virus SNOMED Code(s): 439646675030950608 Code(s): U07.1 - COVID-19; J12.89 - OTHER VIRAL PNEUMONIA Status: Acute Priority: High Current Visit: Yes (2) Hypokalemia SNOMED Code(s): 71873401 Code(s): E87.6 - HYPOKALEMIA Status: Acute Priority: High Current Visit: Yes (3) Hypoxia SNOMED Code(s): 450635575 Code(s): R09.02 - HYPOXEMIA Status: Acute Priority: High Current Visit: Yes - Problem List Review Problem List Initiated/Reviewed/Updated: Yes - Plan Plan:: 07/20/10 * 1 week history of weakness, general malaise, poor appetite, shortness of breath and diarrhea * History of exposure to COVID-19 * History of COPD * Chest x-ray shows lung choe show prominence to the pulmonary interstitium. Minimal groundglass airspace disease at the lower lung choe bilaterally. * The patient did receive 40 mEq of potassium IV in the ER. Lab results: * Platelet count 411 * Potassium 2.5 * Anion gap 19.5 * BUN 37 * Creatinine 1.6 * GFR 44 * Glucose 132 * LDH 516 * Troponin 0 0.066 * C-reactive protein 26.0 * Lactic acid 1.8 * Ferritin 1692 * BNP 261 * D-dimer 1.01 Arterial blood gases: * pH 7.51 * PCO2 29.5 * PO2 62.0 * HCO3 23.0 * Currently on 5 L per nasal cannula Vital signs: * Temperature 100.7 * Pulse 118 * Respiratory rate 36 * Blood pressure 149/86 * Pulse ox 75% on room air; 90% on 5 L per nasal cannula Plan: * Start remdesivir. The risks and benefits were discussed with the patient. I offered him the patient and caregiver EUA remdesivir fact sheet to read and review. I stated the drug has been approved by an emergency use authorization process and has not fully been FDA reviewed or approved. The patient meets the EUA requirements. I shared that the drug may cause liver abnormalities and infusion related side effects. Additionally, other side effects are possible but not shown as the drug has had limited studies. I discussed there are other potential treatment options that are not currently FDA approved to treat COVID-19. Offered opportunity to ask questions and all questions were answered. The patient voiced understanding and agreed to proceed with the treatment for himself. * Start dexamethasone * Give 2 units of convalescent plasma. Consent was obtained prior. I spoke with him to provide information about convalescent plasma for himself. I offered him the fax sheet for patients and parents/caregivers for COVID-19 convalescent plasma to read and review. I stated the therapy has been approved by an emergency youth authorization process and has not fully been FDA reviewed or approved. I shared potential risks from the therapy including transmission of blood-borne pathogens such as HIV and hepatitis C, allergic and transfusion related reactions, post transfusion purpura. Additionally theoretical risks including a phenomenon called antibody dependent enhancement of infection such as is seen in dengue or attenuation of an immune response that may make patients more susceptible to reinfection. I discussed there are other potential treatment options that are currently not FDA approved to treat COVID-19. Offered opportunity to ask questions and all questions were answered. The patient voiced understanding and agreed to proceed with the treatment for himself. * Incentive spirometry * RT to titrate oxygen * PRN albuterol * Monitor for hypoxemia * Monitor lab work and replace electrolytes as needed * Renally dose medications * Continue home statin * Dietary consult * front services agent and discharge planning consult * Theophylline level * Repeat troponin COVID-19,Hypoxia, Pneumonia due to COVID-19 virus -Remdesivir -Convalescent plasma -Dexamethasone -Monitor for hypoxia -RT to titrate O2 -IS -Albuterol nebs prn Hypokalemia -received 40meq KCL in ED -recheck labs in the am Renal insufficiency -renally dose medication -recheck labs in the am PROPHYLAXIS: DVT: Lovenox CODE STATUS: Full Code Disposition: Patient will be admitted to [facility] with telemetry and continuous pulse ox monitoring. front services agent to consult for discharge planning. Dietary to consult for caloric needs. The patient will likely be here greater than 96 hours due to needing treatment for COVID. 07/21/2020 The patient is a 64-year-old gentleman who was still short of breath today. He is currently on dexamethasone and this will continue. He has also had convalescent plasma. The patient will be kept at least enough to finish 5 days of remdesivir. Patient also had been hypokalemic and laboratory testing has been ordered and the patient will have electrolytes replaced as necessary. Continue with diet as tolerated. Encouraged to ambulate.
[2020-07-21] MEDS: Aspirin 81 MG Tab.EC PO SCH (10:00)
[2020-07-21] MEDS: Theophylline 300 MG Tab.ER PO SCH (10:00)
[2020-07-21] MEDS: Fluticasone Propionate Nasal Spray 16 GM Bottle NASBOTH SCH ×2 (10:01→21:17)
[2020-07-21] MEDS: Dexamethasone 4 MG Tab PO SCH (10:01)
[2020-07-21] MEDS ORDERED: Sodium Chloride 0.9% with KCl 500 ML IV SCH (10:30)
[2020-07-21] MEDS: Enoxaparin 40 MG/0.4 ML Syringe SUBCUT SCH ×2 (12:30→23:50)
[2020-07-21] MEDS: REMDESIVIR (EUA) 100 MG in Sodium Chloride 0.9% 100 ML IV SCH (12:30)
[2020-07-21] MEDS: Potassium Chloride 10 MEQ in Premix Bag 1 BAG IV SCH ×4 (12:30→15:58)
[2020-07-21] MEDS: Simvastatin 20 MG Tab PO SCH (21:17)
[2020-07-22] MEDS: Pantoprazole 40 MG Tab.CR PO SCH ×2 (05:44→07:59)
--- NOTE | 2020-07-22 07:30 | PCM.PN ---
- General Info Date of Service: 07/22/20 Admission Dx/Problem (Free Text): Admission Diagnosis/Problem Admission Diagnosis/Problem Hypoxia Subjective Update: The patient is a 64-year-old gentleman who was admitted to acute hospitalization on July 20, 2020. This was out of concern for hypoxia which was found to be COVID-19. Day the patient says that he is feeling much better. He is still somewhat short of breath. He has denied any fever or chills. The patient does not use oxygen at home. He has been tolerating the COVID-19 treatment protocol. Functional Status: Reports: Pain Controlled, Tolerating Diet - Review of Systems General: Reports: Weakness, Fatigue HEENT: Reports: No Symptoms Pulmonary: Reports: Shortness of Breath, Cough Cardiovascular: Reports: No Symptoms Gastrointestinal: Reports: No Symptoms Genitourinary: Reports: No Symptoms Musculoskeletal: Reports: No Symptoms Skin: Reports: No Symptoms Neurological: Reports: No Symptoms Psychiatric: Reports: No Symptoms - Patient Data Vitals - Most Recent: Last Vital Signs Temp 36.6 C 07/21/20 23:45 Pulse 80 07/21/20 23:45 Resp 20 07/21/20 23:45 BP 125/85 07/21/20 23:45 Pulse Ox 94 L 07/21/20 23:45 Weight - Most Recent: 84.776 kg I&O - Last 24 Hours: Intake & Output 07/21/20 07/22/20 07/22/20 22:59 06:59 14:59 Intake Total 1000 750 Output Total 550 775 Balance 450 -25 Lab Results Last 24 Hours: Laboratory Results - last 24 hr 07/20/20 07/20/20 07/22/20 Range/Units 08:50 08:50 05:30 WBC 9.99 H (4.23-9.07) K/mm3 RBC 4.35 L (4.63-6.08) M/mm3 Hgb 12.7 L (13.7-17.5) gm/dl Hct 38.3 L (40.1-51.0) % MCV 88.0 (79.0-92.2) fl MCH 29.2 (25.7-32.2) pg MCHC 33.2 (32.2-35.5) g/dl RDW Std Deviation 40.3 (35.1-43.9) fL Plt Count 492 H D (163-337) K/mm3 MPV 9.2 L (9.4-12.3) fl Neut % (Auto) 90.5 H (34.0-67.9) % Lymph % (Auto) 4.7 L (21.8-53.1) % Lynn % (Auto) 4.3 L (5.3-12.2) % Eos % (Auto) 0 L (0.8-7.0) Baso % (Auto) 0.1 (0.1-1.2) % Neut # (Auto) 9.04 H (1.78-5.38) K/mm3 Lymph # (Auto) 0.47 L (1.32-3.57) K/mm3 Lynn # (Auto) 0.43 (0.30-0.82) K/mm3 Eos # (Auto) 0.00 L (0.04-0.54) K/mm3 Baso # (Auto) 0.01 (0.01-0.08) K/mm3 D-Dimer, Quantitative (0.19-0.50) mg/L Sodium (136-145) mEq/L Potassium (3.5-5.1) mEq/L Chloride (98-107) mEq/L Carbon Dioxide (21-32) mEq/L Anion Gap (5-15) BUN (7-18) mg/dL Creatinine (0.7-1.3) mg/dL Est Cr Clr Drug Dosing mL/min Estimated GFR (MDRD) (>60) mL/min BUN/Creatinine Ratio (14-18) Glucose (80-115) mg/dL Calcium (8.5-10.1) mg/dL Phosphorus (2.6-4.7) mg/dL Magnesium (1.8-2.4) mg/dl Total Bilirubin (0.2-1.0) mg/dL AST (15-37) U/L ALT (16-63) U/L Alkaline Phosphatase (46-116) U/L Troponin I (0.00-0.056) ng/mL C-Reactive Protein (<1.0) mg/dL Total Protein (6.4-8.2) g/dl Albumin (3.4-5.0) g/dl Globulin gm/dL Albumin/Globulin Ratio (1-2) Procalcitonin 1.03 H (<0.10) ng/mL Theophylline 11.1 (10.0-20.0) ug/mL 07/22/20 07/22/20 Range/Units 05:30 05:30 WBC (4.23-9.07) K/mm3 RBC (4.63-6.08) M/mm3 Hgb (13.7-17.5) gm/dl Hct (40.1-51.0) % MCV (79.0-92.2) fl MCH (25.7-32.2) pg MCHC (32.2-35.5) g/dl RDW Std Deviation (35.1-43.9) fL Plt Count (163-337) K/mm3 MPV (9.4-12.3) fl Neut % (Auto) (34.0-67.9) % Lymph % (Auto) (21.8-53.1) % Lynn % (Auto) (5.3-12.2) % Eos % (Auto) (0.8-7.0) Baso % (Auto) (0.1-1.2) % Neut # (Auto) (1.78-5.38) K/mm3 Lymph # (Auto) (1.32-3.57) K/mm3 Lynn # (Auto) (0.30-0.82) K/mm3 Eos # (Auto) (0.04-0.54) K/mm3 Baso # (Auto) (0.01-0.08) K/mm3 D-Dimer, Quantitative 0.53 H (0.19-0.50) mg/L Sodium 138 (136-145) mEq/L Potassium 3.7 (3.5-5.1) mEq/L Chloride 100 (98-107) mEq/L Carbon Dioxide 29 (21-32) mEq/L Anion Gap 12.7 (5-15) BUN 32 H (7-18) mg/dL Creatinine 0.9 (0.7-1.3) mg/dL Est Cr Clr Drug Dosing 76.20 mL/min Estimated GFR (MDRD) > 60 (>60) mL/min BUN/Creatinine Ratio 35.6 H (14-18) Glucose 152 H (80-115) mg/dL Calcium 8.9 (8.5-10.1) mg/dL Phosphorus 3.1 (2.6-4.7) mg/dL Magnesium 2.4 (1.8-2.4) mg/dl Total Bilirubin 0.5 (0.2-1.0) mg/dL AST 52 H (15-37) U/L ALT 57 (16-63) U/L Alkaline Phosphatase 51 (46-116) U/L Troponin I < 0.017 (0.00-0.056) ng/mL C-Reactive Protein 14.3 H* (<1.0) mg/dL Total Protein 7.0 (6.4-8.2) g/dl Albumin 2.3 L (3.4-5.0) g/dl Globulin 4.7 gm/dL Albumin/Globulin Ratio 0.5 L (1-2) Procalcitonin (<0.10) ng/mL Theophylline (10.0-20.0) ug/mL Jaiden Results Last 24 Hours: Microbiology 07/20/20 09:00 Aerobic Blood Culture - Preliminary Blood - Venous - Lab Draw NO GROWTH AFTER 1 DAY Anaerobic Blood Culture - Preliminary NO GROWTH AFTER 1 DAY 07/20/20 08:50 Aerobic Blood Culture - Preliminary Blood - Venous NO GROWTH AFTER 1 DAY Anaerobic Blood Culture - Preliminary NO GROWTH AFTER 1 DAY Med Orders - Current: Current Medications Acetaminophen (Tylenol) 650 mg PO Q4H PRN PRN Reason: Pain (Mild 1-3)/fever Albuterol (Proventil Neb Soln) 2.5 mg NEB Q2H PRN PRN Reason: Shortness Of Breath/wheezing Albuterol (Proventil Hfa) 0 gm INH Q4H PRN PRN Reason: Wheezing Last Admin: 07/21/20 21:25 Dose: 2 puff Documented by: Aspirin (Halfprin) 81 mg PO DAILY [facility] Last Admin: 07/21/20 10:00 Dose: 81 mg Documented by: Dexamethasone (Dexamethasone) 6 mg PO DAILY [facility] Stop: 07/29/20 09:01 Last Admin: 07/21/20 10:01 Dose: 6 mg Documented by: Enoxaparin Sodium (Lovenox) 40 mg SUBCUT Q12H [facility] Last Admin: 07/21/20 23:50 Dose: 40 mg Documented by: Fluticasone Propionate (Flonase) 0 gm NASBOTH BID [facility] Last Admin: 07/21/20 21:17 Dose: 2 spray Documented by: Glycopyrrolate (Seebri Neohaler) 15.6 mcg IH BID [facility] Last Admin: 07/21/20 21:24 Dose: 1 cap.ec Documented by: Remdesivir 100 mg/ Sodium (Chloride) 100 mls @ 100 mls/hr IV Q24H [facility] Stop: 07/24/20 13:29 Last Admin: 07/21/20 12:30 Dose: 100 mls/hr Documented by: Mometasone Furoate/Formoterol Fumar (Dulera 200-5 Mcg) 0 puff INH BID [facility] Last Admin: 07/21/20 21:24 Dose: 2 puff Documented by: Ondansetron HCl (Zofran) 4 mg IV Q6H PRN PRN Reason: Nausea/Vomiting Pantoprazole Sodium (Protonix) 40 mg PO DAILY@0700 [facility] Last Admin: 07/22/20 05:44 Dose: 40 mg Documented by: Simvastatin (Zocor) 20 mg PO BEDTIME [facility] Last Admin: 07/21/20 21:17 Dose: 20 mg Documented by: Sodium Chloride (Saline Flush) 10 ml FLUSH ASDIRECTED PRN PRN Reason: Keep Vein Open Last Admin: 07/20/20 08:50 Dose: 10 ml Documented by: Theophylline (Theophylline Anhydrous) 600 mg PO DAILY [facility] Last Admin: 07/21/20 10:00 Dose: 600 mg Documented by: Discontinued Medications Potassium Chloride 10 meq/ (Premix) 100 mls @ 100 mls/hr IV Q1H [facility] Stop: 07/20/20 13:59 Last Admin: 07/20/20 15:20 Dose: 100 mls/hr Documented by: Sodium Chloride (Normal Saline) 1,000 mls @ 150 mls/hr IV ASDIRECTED [facility] Last Admin: 07/20/20 10:17 Dose: 150 mls/hr Documented by: Remdesivir 200 mg/ Sodium (Chloride) 250 mls @ 250 mls/hr IV ONETIME ONE Stop: 07/20/20 13:29 Last Admin: 07/20/20 13:00 Dose: 250 mls/hr Documented by: Sodium Chloride (Normal Saline) 250 mls @ 125 mls/hr IV ASDIRECTED [facility] Stop: 07/20/20 23:00 Last Admin: 07/20/20 15:26 Dose: 125 mls/hr Documented by: Potassium Chloride/Sodium Chloride (Normal Saline With 40 Meq Kcl) 500 mls @ 50 mls/hr IV ASDIRECTED [facility] Potassium Chloride 10 meq/ (Premix) 100 mls @ 100 mls/hr IV Q1H [facility] Stop: 07/21/20 14:29 Last Admin: 07/21/20 15:58 Dose: 100 mls/hr Documented by: Potassium Chloride (Klor-Con M20) 40 meq PO ONETIME ONE Stop: 07/20/20 21:01 Last Admin: 07/20/20 21:06 Dose: 40 meq Documented by: - Exam Quality Assessment: Supplemental Oxygen General: Alert, Oriented HEENT: Pupils Equal, Pupils Reactive, EOMI Neck: Supple, Trachea Midline Lungs: Clear to Auscultation, Normal Respiratory Effort Cardiovascular: Regular Rate, Regular Rhythm GI/Abdominal Exam: Normal Bowel Sounds, Soft, Non-Tender, No Distention (Male) Exam: Deferred Back Exam: Normal Inspection, Full Range of Motion Extremities: Normal Inspection, Normal Range of Motion, No Pedal Edema Skin: Warm, Dry, Intact Neurological: No New Focal Deficit Psy/Mental Status: Alert, Normal Affect, Normal Mood Sepsis Event Note - Evaluation Sepsis Screening Result: No Definite Risk - Focused Exam Vital Signs: Vital Signs Temp Temp Pulse Pulse Resp BP BP 07/21/20 23:45 36.6 C 80 20 125/85 07/21/20 21:26 07/21/20 21:14 37.1 C 78 20 123/92 H Pulse Ox Pulse Ox 07/21/20 23:45 94 L 07/21/20 21:26 93 L 07/21/20 21:14 93 L - Problem List & Annotations (1) Pneumonia due to COVID-19 virus SNOMED Code(s): 821340048003941125 Code(s): U07.1 - COVID-19; J12.89 - OTHER VIRAL PNEUMONIA Status: Acute Priority: High Current Visit: Yes (2) Hypokalemia SNOMED Code(s): 14264064 Code(s): E87.6 - HYPOKALEMIA Status: Acute Priority: High Current Visit: Yes (3) Hypoxia SNOMED Code(s): 022550425 Code(s): R09.02 - HYPOXEMIA Status: Acute Priority: High Current Visit: Yes - Problem List Review Problem List Initiated/Reviewed/Updated: Yes - My Orders Last 24 Hours: My Active Orders 07/21/20 19:17 Communication Order [RC] DAILY - Plan Plan:: 07/20/10 * 1 week history of weakness, general malaise, poor appetite, shortness of breath and diarrhea * History of exposure to COVID-19 * History of COPD * Chest x-ray shows lung choe show prominence to the pulmonary interstitium. Minimal groundglass airspace disease at the lower lung choe bilaterally. * The patient did receive 40 mEq of potassium IV in the ER. Lab results: * Platelet count 411 * Potassium 2.5 * Anion gap 19.5 * BUN 37 * Creatinine 1.6 * GFR 44 * Glucose 132 * LDH 516 * Troponin 0 0.066 * C-reactive protein 26.0 * Lactic acid 1.8 * Ferritin 1692 * BNP 261 * D-dimer 1.01 Arterial blood gases: * pH 7.51 * PCO2 29.5 * PO2 62.0 * HCO3 23.0 * Currently on 5 L per nasal cannula Vital signs: * Temperature 100.7 * Pulse 118 * Respiratory rate 36 * Blood pressure 149/86 * Pulse ox 75% on room air; 90% on 5 L per nasal cannula Plan: * Start remdesivir. The risks and benefits were discussed with the patient. I offered him the patient and caregiver EUA remdesivir fact sheet to read and review. I stated the drug has been approved by an emergency use authorization process and has not fully been FDA reviewed or approved. The patient meets the EUA requirements. I shared that the drug may cause liver abnormalities and infusion related side effects. Additionally, other side effects are possible but not shown as the drug has had limited studies. I discussed there are other potential treatment options that are not currently FDA approved to treat COVID-19. Offered opportunity to ask questions and all questions were answered. The patient voiced understanding and agreed to proceed with the treatment for himself. * Start dexamethasone * Give 2 units of convalescent plasma. Consent was obtained prior. I spoke with him to provide information about convalescent plasma for himself. I offered him the fax sheet for patients and parents/caregivers for COVID-19 convalescent plasma to read and review. I stated the therapy has been approved by an emergency youth authorization process and has not fully been FD A reviewed or approved. I shared potential risks from the therapy including transmission of blood-borne pathogens such as HIV and hepatitis C, allergic and transfusion related reactions, post transfusion purpura. Additionally theoretical risks including a phenomenon called antibody dependent enhancement of infection such as is seen in dengue or attenuation of an immune response that may make patients more susceptible to reinfection. I discussed there are other potential treatment options that are currently not FDA approved to treat COVID-19. Offered opportunity to ask questions and all questions were answered. The patient voiced understanding and agreed to proceed with the treatment for himself. * Incentive spirometry * RT to titrate oxygen * PRN albuterol * Monitor for hypoxemia * Monitor lab work and replace electrolytes as needed * Renally dose medications * Continue home statin * Dietary consult * environmental services attendant and discharge planning consult * Theophylline level * Repeat troponin COVID-19,Hypoxia, Pneumonia due to COVID-19 virus -Remdesivir -Convalescent plasma -Dexamethasone -Monitor for hypoxia -RT to titrate O2 -IS -Albuterol nebs prn Hypokalemia -received 40meq KCL in ED -recheck labs in the am Renal insufficiency -renally dose medication -recheck labs in the am PROPHYLAXIS: DVT: Lovenox CODE STATUS: Full Code Disposition: Patient will be admitted to [facility] with telemetry and continuous pulse ox monitoring. environmental services attendant to consult for discharge planning. Dietary to consult for caloric needs. The patient will likely be here greater than 96 hours due to needing treatment for COVID. 07/21/2020 The patient is a 64-year-old gentleman who was still short of breath today. He is currently on dexamethasone and this will continue. He has also had convalescent plasma. The patient will be kept at least enough to finish 5 days of remdesivir. Patient also had been hypokalemic and laboratory testing has been ordered and the patient will have electrolytes replaced as necessary. Continue with diet as tolerated. Encouraged to ambulate. 07/22/2020 The patient is a 64-year-old gentleman who has been tolerating the COVID-19 treatment well. The patient will be kept long enough to finish at least 5 days of remdesivir. I have advised the patient that he will need to go home with dexamethasone or equivalent. The patient's hypokalemia has resolved. I have ordered repeat laboratory studies for the morning to check the patient's electrolytes. He has been encouraged to continue with his current diet. I have encouraged the patient also to ambulate.
[2020-07-22] MEDS: Dexamethasone 4 MG Tab PO SCH (08:42)
[2020-07-22] MEDS: Fluticasone Propionate Nasal Spray 16 GM Bottle NASBOTH SCH ×2 (08:42→22:10)
[2020-07-22] MEDS: Aspirin 81 MG Tab.EC PO SCH (08:42)
[2020-07-22] MEDS: Theophylline 300 MG Tab.ER PO SCH (08:45)
[2020-07-22] MEDS: Albuterol 6.7 GM Inhaler INH PRN ×2 (09:10→20:42)
[2020-07-22] MEDS: Formoterol/Mometasone 200-5 MCG 13 GM Inhaler INH SCH ×2 (09:11→20:42)
[2020-07-22] MEDS: Glycopyrrolate 15.6 MCG Cap.W.Dev Kit of 6 IH SCH ×2 (09:11→20:42)
[2020-07-22] MEDS: REMDESIVIR (EUA) 100 MG in Sodium Chloride 0.9% 100 ML IV SCH (11:51)
[2020-07-22] MEDS: Enoxaparin 40 MG/0.4 ML Syringe SUBCUT SCH (11:51)
[2020-07-22] MEDS: Simvastatin 20 MG Tab PO SCH (22:10)
[2020-07-23] MEDS: Enoxaparin 40 MG/0.4 ML Syringe SUBCUT SCH ×2 (00:22→12:31)
[2020-07-23] MEDS: Pantoprazole 40 MG Tab.CR PO SCH (06:51)
[2020-07-23] MEDS: Formoterol/Mometasone 200-5 MCG 13 GM Inhaler INH SCH ×2 (08:20→20:06)
[2020-07-23] MEDS: Albuterol 6.7 GM Inhaler INH PRN ×3 (08:20→17:26)
[2020-07-23] MEDS: Glycopyrrolate 15.6 MCG Cap.W.Dev Kit of 6 IH SCH ×2 (08:21→20:16)
[2020-07-23] MEDS: Aspirin 81 MG Tab.EC PO SCH (08:28)
[2020-07-23] MEDS: Dexamethasone 4 MG Tab PO SCH (08:29)
[2020-07-23] MEDS: Theophylline 300 MG Tab.ER PO SCH (08:29)
[2020-07-23] MEDS: Fluticasone Propionate Nasal Spray 16 GM Bottle NASBOTH SCH ×2 (08:30→21:52)
[2020-07-23] MEDS: REMDESIVIR (EUA) 100 MG in Sodium Chloride 0.9% 100 ML IV SCH (12:31)
--- NOTE | 2020-07-23 14:36 | PCM.PN ---
<Carlos King M - Last Filed: 07/23/20 14:37> - General Info Date of Service: 07/23/20 Admission Dx/Problem (Free Text): Admission Diagnosis/Problem Admission Diagnosis/Problem Hypoxia Subjective Update: States his breathing feels much better today. Also states that his cough is almost gone. Denies body aches or diarrhea. Still reports a poor appetite. Functional Status: Reports: Pain Controlled, Incentive Spirometry. Denies: Tolerating Diet (Appetite is poor), Ambulating - Review of Systems General: Reports: Fatigue. Denies: Appetite (Poor) HEENT: Reports: No Symptoms Pulmonary: Reports: Shortness of Breath, Wheezing. Denies: Cough Cardiovascular: Reports: No Symptoms Gastrointestinal: Reports: No Symptoms Genitourinary: Reports: No Symptoms Musculoskeletal: Reports: No Symptoms Skin: Reports: No Symptoms Neurological: Reports: No Symptoms Psychiatric: Reports: No Symptoms - Patient Data Vitals - Most Recent: Last Vital Signs Temp 97.7 F 07/23/20 08:32 Pulse 95 07/23/20 08:32 Resp 20 07/23/20 08:32 BP 128/99 H 07/23/20 08:32 Pulse Ox 93 L 07/23/20 13:20 Weight - Most Recent: 85.094 kg I&O - Last 24 Hours: Intake & Output 07/22/20 07/23/20 07/23/20 22:59 06:59 14:59 Intake Total 550 800 Output Total 750 650 Balance -200 150 Lab Results Last 24 Hours: Laboratory Results - last 24 hr 07/23/20 07/23/20 07/23/20 Range/Units 05:30 05:30 05:50 WBC 10.02 H (4.23-9.07) K/mm3 RBC 4.61 L (4.63-6.08) M/mm3 Hgb 13.5 L (13.7-17.5) gm/dl Hct 40.8 (40.1-51.0) % MCV 88.5 (79.0-92.2) fl MCH 29.3 (25.7-32.2) pg MCHC 33.1 (32.2-35.5) g/dl RDW Std Deviation 40.7 (35.1-43.9) fL Plt Count 625 H D (163-337) K/mm3 MPV 9.3 L (9.4-12.3) fl Neut % (Auto) 87.9 H (34.0-67.9) % Lymph % (Auto) 4.8 L (21.8-53.1) % [place] % (Auto) 6.0 (5.3-12.2) % Eos % (Auto) 0 L (0.8-7.0) Baso % (Auto) 0.3 (0.1-1.2) % Neut # (Auto) 8.81 H (1.78-5.38) K/mm3 Lymph # (Auto) 0.48 L (1.32-3.57) K/mm3 [place] # (Auto) 0.60 (0.30-0.82) K/mm3 Eos # (Auto) 0.00 L (0.04-0.54) K/mm3 Baso # (Auto) 0.03 (0.01-0.08) K/mm3 Manual Slide Review Abnormal smear D-Dimer, Quantitative 0.77 H (0.19-0.50) mg/L Sodium 141 (136-145) mEq/L Potassium 3.5 (3.5-5.1) mEq/L Chloride 101 (98-107) mEq/L Carbon Dioxide 29 (21-32) mEq/L Anion Gap 14.5 (5-15) BUN 35 H (7-18) mg/dL Creatinine 1.0 (0.7-1.3) mg/dL Est Cr Clr Drug Dosing 68.58 mL/min Estimated GFR (MDRD) > 60 (>60) mL/min BUN/Creatinine Ratio 35.0 H (14-18) Glucose 142 H (80-115) mg/dL Calcium 8.8 (8.5-10.1) mg/dL Phosphorus 3.3 (2.6-4.7) mg/dL Magnesium 2.4 (1.8-2.4) mg/dl Total Bilirubin 0.5 (0.2-1.0) mg/dL AST 35 (15-37) U/L ALT 51 (16-63) U/L Alkaline Phosphatase 58 (46-116) U/L C-Reactive Protein 7.7 H* (<1.0) mg/dL Total Protein 7.0 (6.4-8.2) g/dl Albumin 2.3 L (3.4-5.0) g/dl Globulin 4.7 gm/dL Albumin/Globulin Ratio 0.5 L (1-2) [place] Results Last 24 Hours: Microbiology 07/20/20 09:00 Aerobic Blood Culture - Preliminary Blood - Venous - Lab Draw NO GROWTH AFTER 3 DAYS Anaerobic Blood Culture - Preliminary NO GROWTH AFTER 3 DAYS 07/20/20 08:50 Aerobic Blood Culture - Preliminary Blood - Venous NO GROWTH AFTER 3 DAYS Anaerobic Blood Culture - Preliminary NO GROWTH AFTER 3 DAYS Med Orders - Current: Current Medications Acetaminophen (Tylenol) 650 mg PO Q4H PRN PRN Reason: Pain (Mild 1-3)/fever Albuterol (Proventil Neb Soln) 2.5 mg NEB Q2H PRN PRN Reason: Shortness Of Breath/wheezing Albuterol (Proventil Hfa) 0 gm INH Q4H PRN PRN Reason: Wheezing Last Admin: 07/23/20 13:19 Dose: 2 puff Documented by: Aspirin (Halfprin) 81 mg PO DAILY [facility] Last Admin: 07/23/20 08:28 Dose: 81 mg Documented by: Dexamethasone (Dexamethasone) 6 mg PO DAILY [facility] Stop: 07/29/20 09:01 Last Admin: 07/23/20 08:29 Dose: 6 mg Documented by: Enoxaparin Sodium (Lovenox) 40 mg SUBCUT Q12H [facility] Last Admin: 07/23/20 12:31 Dose: 40 mg Documented by: Fluticasone Propionate (Flonase) 0 gm NASBOTH BID [facility] Last Admin: 07/23/20 08:30 Dose: 2 spray Documented by: Glycopyrrolate (Seebri Neohaler) 15.6 mcg IH BID [facility] Last Admin: 07/23/20 08:21 Dose: 1 cap.ec Documented by: Remdesivir 100 mg/ Sodium (Chloride) 100 mls @ 100 mls/hr IV Q24H [facility] Stop: 07/24/20 13:29 Last Admin: 07/23/20 12:31 Dose: 100 mls/hr Documented by: Mometasone Furoate/Formoterol Fumar (Dulera 200-5 Mcg) 0 puff INH BID [facility] Last Admin: 07/23/20 08:20 Dose: 2 puff Documented by: Ondansetron HCl (Zofran) 4 mg IV Q6H PRN PRN Reason: Nausea/Vomiting Last Admin: 07/23/20 00:35 Dose: 4 mg Documented by: Pantoprazole Sodium (Protonix) 40 mg PO DAILY@0700 [facility] Last Admin: 07/23/20 06:51 Dose: 40 mg Documented by: Simvastatin (Zocor) 20 mg PO BEDTIME [facility] Last Admin: 07/22/20 22:10 Dose: 20 mg Documented by: Sodium Chloride (Saline Flush) 10 ml FLUSH ASDIRECTED PRN PRN Reason: Keep Vein Open Last Admin: 07/20/20 08:50 Dose: 10 ml Documented by: Theophylline (Theophylline Anhydrous) 600 mg PO DAILY [facility] Last Admin: 07/23/20 08:29 Dose: 600 mg Documented by: Discontinued Medications Potassium Chloride 10 meq/ (Premix) 100 mls @ 100 mls/hr IV Q1H [facility] Stop: 07/20/20 13:59 Last Admin: 07/20/20 15:20 Dose: 100 mls/hr Documented by: Sodium Chloride (Normal Saline) 1,000 mls @ 150 mls/hr IV ASDIRECTED [facility] Last Admin: 07/20/20 10:17 Dose: 150 mls/hr Documented by: Remdesivir 200 mg/ Sodium (Chloride) 250 mls @ 250 mls/hr IV ONETIME ONE Stop: 07/20/20 13:29 Last Admin: 07/20/20 13:00 Dose: 250 mls/hr Documented by: Sodium Chloride (Normal Saline) 250 mls @ 125 mls/hr IV ASDIRECTED [facility] Stop: 07/20/20 23:00 Last Admin: 07/20/20 15:26 Dose: 125 mls/hr Documented by: Potassium Chloride/Sodium Chloride (Normal Saline With 40 Meq Kcl) 500 mls @ 50 mls/hr IV ASDIRECTED [facility] Potassium Chloride 10 meq/ (Premix) 100 mls @ 100 mls/hr IV Q1H [facility] Stop: 07/21/20 14:29 Last Admin: 07/21/20 15:58 Dose: 100 mls/hr Documented by: Potassium Chloride (Klor-Con M20) 40 meq PO ONETIME ONE Stop: 07/20/20 21:01 Last Admin: 07/20/20 21:06 Dose: 40 meq Documented by: - Exam Quality Assessment: Supplemental Oxygen (High flow O2), DVT Prophylaxis (Lovenox) General: Alert, Oriented, Cooperative, Mild Distress HEENT: Pupils Equal, Pupils Reactive, Mucous Membr. Moist/[place] Neck: Supple, Trachea Midline. No: Lymphadenopathy Lungs: Decreased Breath Sounds, Wheezing (Bilaterally posteriorly) Cardiovascular: Regular Rate, Regular Rhythm, No Murmurs GI/Abdominal Exam: Normal Bowel Sounds, Soft, Non-Tender, No Distention (Male) Exam: Deferred Back Exam: Normal Inspection, Full Range of Motion Extremities: Normal Inspection, Normal Range of Motion, Non-Tender, No Pedal Edema, Normal Capillary Refill Peripheral Pulses: 2+: Radial (L), Radial (R), Dorsalis Pedis (L), Dorsalis Pedis (R) Skin: Warm, Dry, Intact Neurological: No New Focal Deficit Psy/Mental Status: Alert, Normal Affect, Normal Mood Sepsis Event Note - Evaluation Sepsis Screening Result: No Definite Risk - Focused Exam Vital Signs: Vital Signs Temp Pulse Resp BP Pulse Ox Pulse Ox 07/23/20 13:20 93 L 07/23/20 08:32 97.7 F 95 20 128/99 H 88 L 07/23/20 08:22 92 L 07/23/20 04:03 98.2 F 91 20 138/90 92 L - Problem List & Annotations (1) COVID-19 SNOMED Code(s): 696654410 Code(s): U07.1 - COVID-19 Status: Acute Priority: High Current Visit: Yes (2) Hypokalemia SNOMED Code(s): 05914319 Code(s): E87.6 - HYPOKALEMIA Status: Acute Priority: High Current Visit: Yes (3) Hypoxia SNOMED Code(s): 329351253 Code(s): R09.02 - HYPOXEMIA Status: Acute Priority: High Current Visit: Yes (4) Pneumonia due to COVID-19 virus SNOMED Code(s): 700752492541356999 Code(s): U07.1 - COVID-19; J12.89 - OTHER VIRAL PNEUMONIA Status: Acute Priority: High Current Visit: Yes (5) Renal insufficiency SNOMED Code(s): 374551613, 183574063 Code(s): N28.9 - DISORDER OF KIDNEY AND URETER, UNSPECIFIED Status: Acute Priority: High Current Visit: Yes - Problem List Review Problem List Initiated/Reviewed/Updated: Yes - My Orders Last 24 Hours: My Active Orders 07/23/20 14:32 PROCALCITONIN [REF] Stat 07/24/20 05:11 C-REACTIVE PROTEIN [CHEM] DAILY CBC WITH AUTO DIFF [HEME] DAILY COMPREHENSIVE METABOLIC PN,CMP [CHEM] DAILY D-DIMER QUANTITATIVE [COAG] DAILY MAGNESIUM [CHEM] DAILY PHOSPHORUS [CHEM] DAILY 07/25/20 05:11 C-REACTIVE PROTEIN [CHEM] DAILY CBC WITH AUTO DIFF [HEME] DAILY COMPREHENSIVE METABOLIC PN,CMP [CHEM] DAILY D-DIMER QUANTITATIVE [COAG] DAILY MAGNESIUM [CHEM] DAILY PHOSPHORUS [CHEM] DAILY - Assessment Assessment:: 07/20/10 * 1 week history of weakness, general malaise, poor appetite, shortness of breath and diarrhea * History of exposure to COVID-19 * History of COPD * Chest x-ray shows lung choe show prominence to the pulmonary interstitium. Minimal groundglass airspace disease at the lower lung choe bilaterally. * The patient did receive 40 mEq of potassium IV in the ER. Lab results: * Platelet count 411 * Potassium 2.5 * Anion gap 19.5 * BUN 37 * Creatinine 1.6 * GFR 44 * Glucose 132 * LDH 516 * Troponin 0 0.066 * C-reactive protein 26.0 * Lactic acid 1.8 * Ferritin 1692 * BNP 261 * D-dimer 1.01 Arterial blood gases: * pH 7.51 * PCO2 29.5 * PO2 62.0 * HCO3 23.0 * Currently on 5 L per nasal cannula Vital signs: * Temperature 100.7 * Pulse 118 * Respiratory rate 36 * Blood pressure 149/86 * Pulse ox 75% on room air; 90% on 5 L per nasal cannula Plan: * Start remdesivir. The risks and benefits were discussed with the patient. I offered him the patient and caregiver EUA remdesivir fact sheet to read and review. I stated the drug has been approved by an emergency use authorization process and has not fully been FDA reviewed or approved. The patient meets the EUA requirements. I shared that the drug may cause liver abnormalities and infusion related side effects. Additionally, other side effects are possible but not shown as the drug has had limited studies. I discussed there are other potential treatment options that are not currently FDA approved to treat COVID-19. Offered opportunity to ask questions and all questions were answered. The patient voiced understanding and agreed to proceed with the treatment for himself. * Start dexamethasone * Give 2 units of convalescent plasma. Consent was obtained prior. I spoke with him to provide information about convalescent plasma for himself. I offered him the fax sheet for patients and parents/caregivers for COVID-19 convalescent plasma to read and review. I stated the therapy has been approved by an emergency youth authorization process and has not fully been FDA reviewed or approved. I shared potential risks from the therapy including transmission of blood-borne pathogens such as HIV and hepatitis C, allergic and transfusion related reactions, post transfusion purpura. Additionally theoretical risks including a phenomenon called antibody dependent enhancement of infection such as is seen in dengue or attenuation of an immune response that may make patients more susceptible to reinfection. I discussed there are other potential treatment options that are currently not FDA approved to treat COVID-19. Offered opportunity to ask questions and all questions were answered. The patient voiced understanding and agreed to proceed with the treatment for himself. * Incentive spirometry * RT to titrate oxygen * PRN albuterol * Monitor for hypoxemia * Monitor lab work and replace electrolytes as needed * Renally dose medications * Continue home statin * Dietary consult * industrial services worker and discharge planning consult * Theophylline level * Repeat troponin 07/21/2020 The patient is a 64-year-old gentleman who was still short of breath today. He is currently on dexamethasone and this will continue. He has also had convalescent plasma. The patient will be kept at least enough to finish 5 days of remdesivir. Patient also had been hypokalemic and laboratory testing has been ordered and the patient will have electrolytes replaced as necessary. Continue with diet as tolerated. Encouraged to ambulate. 07/22/2020 The patient is a 64-year-old gentleman who has been tolerating the COVID-19 treatment well. The patient will be kept long enough to finish at least 5 days of remdesivir. I have advised the patient that he will need to go home with dexamethasone or equivalent. The patient's hypokalemia has resolved. I have ordered repeat laboratory studies for the morning to check the patient's electrolytes. He has been encouraged to continue with his current diet. I have encouraged the patient also to ambulate. 07/23/20 The patient is on day 4 of remdesivir and dexamethasone. Continues on high flow O2 with respiratory therapy attempting to titrate down. He on 60 L at 75% FiO2. Appetite remains poor he is however receiving protein supplements. He has been doing his incentive spirometer up to 1500. I encouraged him to be up in the chair 3 times daily with all meals and to start prone positioning. Will recheck lab work in the a.m. - Plan Plan:: 07/20/10 * 1 week history of weakness, general malaise, poor appetite, shortness of breath and diarrhea * History of exposure to COVID-19 * History of COPD * Chest x-ray shows lung choe show prominence to the pulmonary interstitium. Minimal groundglass airspace disease at the lower lung choe bilaterally. * The patient did receive 40 mEq of potassium IV in the ER. Lab results: * Platelet count 411 * Potassium 2.5 * Anion gap 19.5 * BUN 37 * Creatinine 1.6 * GFR 44 * Glucose 132 * LDH 516 * Troponin 0 0.066 * C-reactive protein 26.0 * Lactic acid 1.8 * Ferritin 1692 * BNP 261 * D-dimer 1.01 Arterial blood gases: * pH 7.51 * PCO2 29.5 * PO2 62.0 * HCO3 23.0 * Currently on 5 L per nasal cannula Vital signs: * Temperature 100.7 * Pulse 118 * Respiratory rate 36 * Blood pressure 149/86 * Pulse ox 75% on room air; 90% on 5 L per nasal cannula Plan: * Start remdesivir. The risks and benefits were discussed with the patient. I offered him the patient and caregiver TIFFANY remdesivir fact sheet to read and review. I stated the drug has been approved by an emergency use authorization process and has not fully been FDA reviewed or approved. The patient meets the EUA requirements. I shared that the drug may cause liver abnormalities and infusion related side effects. Additionally, other side effects are possible but not shown as the drug has had limited studies. I discussed there are other potential treatment options that are not currently FDA approved to treat COVID-19. Offered opportunity to ask questions and all questions were answered. The patient voiced understanding and agreed to proceed with the treatment for himself. * Start dexamethasone * Give 2 units of convalescent plasma. Consent was obtained prior. I spoke with him to provide information about convalescent plasma for himself. I offered him the fax sheet for patients and parents/caregivers for COVID-19 convalescent plasma to read and review. I stated the therapy has been approved by an emergency youth authorization process and has not fully been FDA reviewed or approved. I shared potential risks from the therapy including transmission of blood-borne pathogens such as HIV and hepatitis C, allergic and transfusion related reactions, post transfusion purpura. Additionally theoretical risks including a phenomenon called antibody dependent enhancement of infection such as is seen in dengue or attenuation of an immune response that may make patients more susceptible to reinfection. I discussed there are other potential treatment options that are currently not FDA approved to treat COVID-19. Offered opportunity to ask questions and all questions were answered. The patient voiced understanding and agreed to proceed with the treatment for himself. * Incentive spirometry * RT to titrate oxygen * PRN albuterol * Monitor for hypoxemia * Monitor lab work and replace electrolytes as needed * Renally dose medications * Continue home statin * Dietary consult * industrial services worker and discharge planning consult * Theophylline level * Repeat troponin COVID-19,Hypoxia, Pneumonia due to COVID-19 virus -Remdesivir -Convalescent plasma -Dexamethasone -Monitor for hypoxia -RT to titrate O2 -IS -Albuterol nebs prn Hypokalemia -received 40meq KCL in ED -recheck labs in the am Renal insufficiency -renally dose medication -recheck labs in the am PROPHYLAXIS: DVT: Lovenox CODE STATUS: Full Code Disposition: Patient will be admitted to [facility] with telemetry and continuous pulse ox monitoring. industrial services worker to consult for discharge planning. Dietary to consult for caloric needs. The patient will likely be here greater than 96 hours due to needing treatment for COVID. 07/21/2020 The patient is a 64-year-old gentleman who was still short of breath today. He is currently on dexamethasone and this will continue. He has also had convalescent plasma. The patient will be kept at least enough to finish 5 days of remdesivir. Patient also had been hypokalemic and laboratory testing has been ordered and the patient will have electrolytes replaced as necessary. Continue with diet as tolerated. Encouraged to ambulate. 07/22/2020 The patient is a 64-year-old gentleman who has been tolerating the COVID-19 treatment well. The patient will be kept long enough to finish at least 5 days of remdesivir. I have advised the patient that he will need to go home with dexamethasone or equivalent. The patient's hypokalemia has resolved. I have ordered repeat laboratory studies for the morning to check the patient's electrolytes. He has been encouraged to continue with his current diet. I have encouraged the patient also to ambulate. 07/23/20 Continue remdesivir and dexamethasone. RT to continue to titrate oxygen and monitor for hypoxia patient to continue doing incentive spirometer. Recheck labs in the a.m. Continue with Lovenox for DVT prophylaxis. Will plan for patient discharge once oxygen can be weaned down. <Aristeo Mortensen - Last Filed: 07/23/20 17:25> - Patient Data Vitals - Most Recent: Last Vital Signs Temp 36.7 C 07/23/20 16:09 Pulse 101 H 07/23/20 16:09 Resp 16 07/23/20 16:09 BP 117/91 H 07/23/20 16:09 Pulse Ox 92 L 07/23/20 16:09 I&O - Last 24 Hours: Intake & Output 07/23/20 07/23/20 07/23/20 06:59 14:59 22:59 Intake Total 800 1020 Output Total 650 550 Balance 150 470 Lab Results Last 24 Hours: Laboratory Results - last 24 hr 07/23/20 07/23/20 07/23/20 Range/Units 05:30 05:30 05:50 WBC 10.02 H (4.23-9.07) K/mm3 RBC 4.61 L (4.63-6.08) M/mm3 Hgb 13.5 L (13.7-17.5) gm/dl Hct 40.8 (40.1-51.0) % MCV 88.5 (79.0-92.2) fl MCH 29.3 (25.7-32.2) pg MCHC 33.1 (32.2-35.5) g/dl RDW Std Deviation 40.7 (35.1-43.9) fL Plt Count 625 H D (163-337) K/mm3 MPV 9.3 L (9.4-12.3) fl Neut % (Auto) 87.9 H (34.0-67.9) % Lymph % (Auto) 4.8 L (21.8-53.1) % [place] % (Auto) 6.0 (5.3-12.2) % Eos % (Auto) 0 L (0.8-7.0) Baso % (Auto) 0.3 (0.1-1.2) % Neut # (Auto) 8.81 H (1.78-5.38) K/mm3 Lymph # (Auto) 0.48 L (1.32-3.57) K/mm3 [place] # (Auto) 0.60 (0.30-0.82) K/mm3 Eos # (Auto) 0.00 L (0.04-0.54) K/mm3 Baso # (Auto) 0.03 (0.01-0.08) K/mm3 Manual Slide Review Abnormal smear D-Dimer, Quantitative 0.77 H (0.19-0.50) mg/L Sodium 141 (136-145) mEq/L Potassium 3.5 (3.5-5.1) mEq/L Chloride 101 (98-107) mEq/L Carbon Dioxide 29 (21-32) mEq/L Anion Gap 14.5 (5-15) BUN 35 H (7-18) mg/dL Creatinine 1.0 (0.7-1.3) mg/dL Est Cr Clr Drug Dosing 68.58 mL/min Estimated GFR (MDRD) > 60 (>60) mL/min BUN/Creatinine Ratio 35.0 H (14-18) Glucose 142 H (80-115) mg/dL Calcium 8.8 (8.5-10.1) mg/dL Phosphorus 3.3 (2.6-4.7) mg/dL Magnesium 2.4 (1.8-2.4) mg/dl Total Bilirubin 0.5 (0.2-1.0) mg/dL AST 35 (15-37) U/L ALT 51 (16-63) U/L Alkaline Phosphatase 58 (46-116) U/L C-Reactive Protein 7.7 H* (<1.0) mg/dL Total Protein 7.0 (6.4-8.2) g/dl Albumin 2.3 L (3.4-5.0) g/dl Globulin 4.7 gm/dL Albumin/Globulin Ratio 0.5 L (1-2) [place] Results Last 24 Hours: Microbiology 07/20/20 09:00 Aerobic Blood Culture - Preliminary Blood - Venous - Lab Draw NO GROWTH AFTER 3 DAYS Anaerobic Blood Culture - Preliminary NO GROWTH AFTER 3 DAYS 07/20/20 08:50 Aerobic Blood Culture - Preliminary Blood - Venous NO GROWTH AFTER 3 DAYS Anaerobic Blood Culture - Preliminary NO GROWTH AFTER 3 DAYS Med Orders - Current: Current Medications Acetaminophen (Tylenol) 650 mg PO Q4H PRN PRN Reason: Pain (Mild 1-3)/fever Albuterol (Proventil Neb Soln) 2.5 mg NEB Q2H PRN PRN Reason: Shortness Of Breath/wheezing Albuterol (Proventil Hfa) 0 gm INH Q4H PRN PRN Reason: Wheezing Last Admin: 07/23/20 13:19 Dose: 2 puff Documented by: Aspirin (Halfprin) 81 mg PO DAILY [facility] Last Admin: 07/23/20 08:28 Dose: 81 mg Documented by: Dexamethasone (Dexamethasone) 6 mg PO DAILY [facility] Stop: 07/29/20 09:01 Last Admin: 07/23/20 08:29 Dose: 6 mg Documented by: Enoxaparin Sodium (Lovenox) 40 mg SUBCUT Q12H [facility] Last Admin: 07/23/20 12:31 Dose: 40 mg Documented by: Fluticasone Propionate (Flonase) 0 gm NASBOTH BID [facility] Last Admin: 07/23/20 08:30 Dose: 2 spray Documented by: Glycopyrrolate (Seebri Neohaler) 15.6 mcg IH BID [facility] Last Admin: 07/23/20 08:21 Dose: 1 cap.ec Documented by: Remdesivir 100 mg/ Sodium (Chloride) 100 mls @ 100 mls/hr IV Q24H [facility] Stop: 07/24/20 13:29 Last Admin: 07/23/20 12:31 Dose: 100 mls/hr Documented by: Mometasone Furoate/Formoterol Fumar (Dulera 200-5 Mcg) 0 puff INH BID [facility] Last Admin: 07/23/20 08:20 Dose: 2 puff Documented by: Ondansetron HCl (Zofran) 4 mg IV Q6H PRN PRN Reason: Nausea/Vomiting Last Admin: 07/23/20 00:35 Dose: 4 mg Documented by: Pantoprazole Sodium (Protonix) 40 mg PO DAILY@0700 [facility] Last Admin: 07/23/20 06:51 Dose: 40 mg Documented by: Simvastatin (Zocor) 20 mg PO BEDTIME [facility] Last Admin: 07/22/20 22:10 Dose: 20 mg Documented by: Sodium Chloride (Saline Flush) 10 ml FLUSH ASDIRECTED PRN PRN Reason: Keep Vein Open Last Admin: 07/20/20 08:50 Dose: 10 ml Documented by: Theophylline (Theophylline Anhydrous) 600 mg PO DAILY [facility] Last Admin: 07/23/20 08:29 Dose: 600 mg Documented by: Discontinued Medications Potassium Chloride 10 meq/ (Premix) 100 mls @ 100 mls/hr IV Q1H [facility] Stop: 07/20/20 13:59 Last Admin: 07/20/20 15:20 Dose: 100 mls/hr Documented by: Sodium Chloride (Normal Saline) 1,000 mls @ 150 mls/hr IV ASDIRECTED [facility] Last Admin: 07/20/20 10:17 Dose: 150 mls/hr Documented by: Remdesivir 200 mg/ Sodium (Chloride) 250 mls @ 250 mls/hr IV ONETIME ONE Stop: 07/20/20 13:29 Last Admin: 07/20/20 13:00 Dose: 250 mls/hr Documented by: Sodium Chloride (Normal Saline) 250 mls @ 125 mls/hr IV ASDIRECTED [facility] Stop: 07/20/20 23:00 Last Admin: 07/20/20 15:26 Dose: 125 mls/hr Documented by: Potassium Chloride/Sodium Chloride (Normal Saline With 40 Meq Kcl) 500 mls @ 50 mls/hr IV ASDIRECTED [facility] Potassium Chloride 10 meq/ (Premix) 100 mls @ 100 mls/hr IV Q1H [facility] Stop: 07/21/20 14:29 Last Admin: 07/21/20 15:58 Dose: 100 mls/hr Documented by: Potassium Chloride (Klor-Con M20) 40 meq PO ONETIME ONE Stop: 07/20/20 21:01 Last Admin: 07/20/20 21:06 Dose: 40 meq Documented by: Sepsis Event Note - Focused Exam Vital Signs: Vital Signs Temp Pulse Resp BP Pulse Ox Pulse Ox 07/23/20 16:09 36.7 C 101 H 16 117/91 H 92 L 07/23/20 13:20 93 L 07/23/20 12:37 36.7 C 113 H 20 130/111 H 86 L 07/23/20 12:00 96 07/23/20 08:32 36.5 C 95 20 128/99 H 88 L 07/23/20 08:22 92 L - Problem List & Annotations (1) Pneumonia due to COVID-19 virus SNOMED Code(s): 316238088114658005 Code(s): U07.1 - COVID-19; J12.89 - OTHER VIRAL PNEUMONIA Status: Acute Priority: High Current Visit: Yes (2) Hypokalemia SNOMED Code(s): 14249216 Code(s): E87.6 - HYPOKALEMIA Status: Acute Priority: High Current Visit: Yes (3) Hypoxia SNOMED Code(s): 161514967 Code(s): R09.02 - HYPOXEMIA Status: Acute Priority: High Current Visit: Yes - Assessment Assessment:: I have seen and examined the patient independent of nurse practitioner Carlos King and I have discussed the case with her. I have reviewed and agree with the assessment and plan as outlined for this patient by her. Please see orders.
[2020-07-23] MEDS: Simvastatin 20 MG Tab PO SCH (21:52)
[2020-07-24] MEDS: Enoxaparin 40 MG/0.4 ML Syringe SUBCUT SCH ×3 (00:10→21:00)
[2020-07-24] MEDS: Pantoprazole 40 MG Tab.CR PO SCH (06:35)
[2020-07-24] MEDS: Formoterol/Mometasone 200-5 MCG 13 GM Inhaler INH SCH ×2 (08:03→20:40)
[2020-07-24] MEDS: Glycopyrrolate 15.6 MCG Cap.W.Dev Kit of 6 IH SCH ×2 (08:04→20:40)
[2020-07-24] MEDS: Albuterol 6.7 GM Inhaler INH PRN ×2 (08:04→20:40)
[2020-07-24] MEDS: Aspirin 81 MG Tab.EC PO SCH (09:03)
[2020-07-24] MEDS: Fluticasone Propionate Nasal Spray 16 GM Bottle NASBOTH SCH ×2 (09:03→21:01)
[2020-07-24] MEDS: Theophylline 300 MG Tab.ER PO SCH (09:04)
[2020-07-24] MEDS: Dexamethasone 4 MG Tab PO SCH (09:04)
[2020-07-24] MEDS ORDERED: Azithromycin 500 MG AdvVial IV SCH (10:45)
[2020-07-24] MEDS: REMDESIVIR (EUA) 100 MG in Sodium Chloride 0.9% 100 ML IV SCH (12:33)
[2020-07-24] MEDS: cefTRIAXone 2 GM in Sodium Chloride 0.9% 100 ML IV SCH (12:34)
--- NOTE | 2020-07-24 13:38 | PCM.PN ---
<KingCarlos santana M - Last Filed: 07/24/20 13:31> - General Info Date of Service: 07/24/20 Admission Dx/Problem (Free Text): Admission Diagnosis/Problem Admission Diagnosis/Problem Hypoxia Subjective Update: Reports that he feels well today. Unable to titrate oxygen down. Appetite remains poor. Functional Status: Reports: Pain Controlled, Urinating, Incentive Spirometry. Denies: Tolerating Diet (Poor), Ambulating - Review of Systems General: Reports: Fatigue. Denies: Appetite (Poor) HEENT: Reports: No Symptoms, Glasses Pulmonary: Reports: Shortness of Breath, Cough, Wheezing. Denies: Sputum Cardiovascular: Reports: No Symptoms Gastrointestinal: Reports: No Symptoms Genitourinary: Reports: No Symptoms Musculoskeletal: Reports: No Symptoms Skin: Reports: No Symptoms Neurological: Reports: No Symptoms Psychiatric: Reports: No Symptoms - Patient Data Vitals - Most Recent: Last Vital Signs Temp 97.9 F 07/24/20 12:31 Pulse 102 H 07/24/20 12:31 Resp 18 07/24/20 12:31 BP 108/68 07/24/20 12:31 Pulse Ox 93 L 07/24/20 13:02 Weight - Most Recent: 81.919 kg I&O - Last 24 Hours: Intake & Output 07/23/20 07/24/20 07/24/20 22:59 06:59 14:59 Intake Total 1020 800 320 Output Total 550 1045 Balance 470 -245 320 Lab Results Last 24 Hours: Laboratory Results - last 24 hr 07/24/20 07/24/20 07/24/20 Range/Units 04:24 04:24 04:24 WBC 14.41 H (4.23-9.07) K/mm3 RBC 4.72 (4.63-6.08) M/mm3 Hgb 13.7 (13.7-17.5) gm/dl Hct 42.2 (40.1-51.0) % MCV 89.4 (79.0-92.2) fl MCH 29.0 (25.7-32.2) pg MCHC 32.5 (32.2-35.5) g/dl RDW Std Deviation 40.9 (35.1-43.9) fL Plt Count 795 H D (163-337) K/mm3 MPV 9.5 (9.4-12.3) fl Neut % (Auto) 84.6 H (34.0-67.9) % Lymph % (Auto) 6.6 L (21.8-53.1) % [place] % (Auto) 7.0 (5.3-12.2) % Eos % (Auto) 0.1 L (0.8-7.0) Baso % (Auto) 0.2 (0.1-1.2) % Neut # (Auto) 12.19 H (1.78-5.38) K/mm3 Lymph # (Auto) 0.95 L (1.32-3.57) K/mm3 [place] # (Auto) 1.01 H (0.30-0.82) K/mm3 Eos # (Auto) 0.01 L (0.04-0.54) K/mm3 Baso # (Auto) 0.03 (0.01-0.08) K/mm3 Manual Slide Review Abnormal smear D-Dimer, Quantitative 0.95 H (0.19-0.50) mg/L Sodium 141 (136-145) mEq/L Potassium 4.0 (3.5-5.1) mEq/L Chloride 101 (98-107) mEq/L Carbon Dioxide 31 (21-32) mEq/L Anion Gap 13.0 (5-15) BUN 33 H (7-18) mg/dL Creatinine 1.0 (0.7-1.3) mg/dL Est Cr Clr Drug Dosing 68.23 mL/min Estimated GFR (MDRD) > 60 (>60) mL/min BUN/Creatinine Ratio 33.0 H (14-18) Glucose 113 (80-115) mg/dL Calcium 9.2 (8.5-10.1) mg/dL Phosphorus 3.0 (2.6-4.7) mg/dL Magnesium 2.3 (1.8-2.4) mg/dl Total Bilirubin 0.5 (0.2-1.0) mg/dL AST 39 H (15-37) U/L ALT 52 (16-63) U/L Alkaline Phosphatase 65 (46-116) U/L C-Reactive Protein 4.9 H* (<1.0) mg/dL Total Protein 7.1 (6.4-8.2) g/dl Albumin 2.3 L (3.4-5.0) g/dl Globulin 4.8 gm/dL Albumin/Globulin Ratio 0.5 L (1-2) Jaiden Results Last 24 Hours: Microbiology 07/20/20 09:00 Aerobic Blood Culture - Preliminary Blood - Venous - Lab Draw NO GROWTH AFTER 4 DAYS Anaerobic Blood Culture - Preliminary NO GROWTH AFTER 4 DAYS 07/20/20 08:50 Aerobic Blood Culture - Preliminary Blood - Venous NO GROWTH AFTER 4 DAYS Anaerobic Blood Culture - Preliminary NO GROWTH AFTER 4 DAYS Med Orders - Current: Current Medications Acetaminophen (Tylenol) 650 mg PO Q4H PRN PRN Reason: Pain (Mild 1-3)/fever Albuterol (Proventil Neb Soln) 2.5 mg NEB Q2H PRN PRN Reason: Shortness Of Breath/wheezing Albuterol (Proventil Hfa) 0 gm INH Q4H PRN PRN Reason: Wheezing Last Admin: 07/24/20 08:04 Dose: 2 puff Documented by: Aspirin (Halfprin) 81 mg PO DAILY [facility] Last Admin: 07/24/20 09:03 Dose: 81 mg Documented by: Dexamethasone (Dexamethasone) 6 mg PO DAILY [facility] Stop: 07/29/20 09:01 Last Admin: 07/24/20 09:04 Dose: 6 mg Documented by: Enoxaparin Sodium (Lovenox) 40 mg SUBCUT Q12H [facility] Last Admin: 07/24/20 09:04 Dose: 40 mg Documented by: Fluticasone Propionate (Flonase) 0 gm NASBOTH BID [facility] Last Admin: 07/24/20 09:03 Dose: 2 spray Documented by: Glycopyrrolate (Seebri Neohaler) 15.6 mcg IH BID [facility] Last Admin: 07/24/20 08:04 Dose: 1 cap.ec Documented by: Ceftriaxone Sodium 2 gm/ (Sodium Chloride) 100 mls @ 200 mls/hr IV Q24H [facility] Stop: 07/28/20 11:29 Last Admin: 07/24/20 12:34 Dose: 200 mls/hr Documented by: Azithromycin 500 mg/ Sodium (Chloride) 250 mls @ 250 mls/hr IV Q24H [facility] Stop: 07/26/20 14:29 Mometasone Furoate/Formoterol Fumar (Dulera 200-5 Mcg) 0 puff INH BID [facility] Last Admin: 07/24/20 08:03 Dose: 2 puff Documented by: Ondansetron HCl (Zofran) 4 mg IV Q6H PRN PRN Reason: Nausea/Vomiting Last Admin: 07/23/20 00:35 Dose: 4 mg Documented by: Pantoprazole Sodium (Protonix) 40 mg PO DAILY@0700 [facility] Last Admin: 07/24/20 06:35 Dose: 40 mg Documented by: Simvastatin (Zocor) 20 mg PO BEDTIME [facility] Last Admin: 07/23/20 21:52 Dose: 20 mg Documented by: Sodium Chloride (Saline Flush) 10 ml FLUSH ASDIRECTED PRN PRN Reason: Keep Vein Open Last Admin: 07/20/20 08:50 Dose: 10 ml Documented by: Theophylline (Theophylline Anhydrous) 600 mg PO DAILY [facility] Last Admin: 07/24/20 09:04 Dose: 600 mg Documented by: Discontinued Medications Enoxaparin Sodium (Lovenox) 40 mg SUBCUT Q12H [facility] Last Admin: 07/24/20 00:10 Dose: 40 mg Documented by: Potassium Chloride 10 meq/ (Premix) 100 mls @ 100 mls/hr IV Q1H [facility] Stop: 07/20/20 13:59 Last Admin: 07/20/20 15:20 Dose: 100 mls/hr Documented by: Sodium Chloride (Normal Saline) 1,000 mls @ 150 mls/hr IV ASDIRECTED [facility] Last Admin: 07/20/20 10:17 Dose: 150 mls/hr Documented by: Remdesivir 200 mg/ Sodium (Chloride) 250 mls @ 250 mls/hr IV ONETIME ONE Stop: 07/20/20 13:29 Last Admin: 07/20/20 13:00 Dose: 250 mls/hr Documented by: Remdesivir 100 mg/ Sodium (Chloride) 100 mls @ 100 mls/hr IV Q24H [facility] Stop: 07/24/20 13:29 Last Admin: 07/24/20 12:33 Dose: 100 mls/hr Documented by: Sodium Chloride (Normal Saline) 250 mls @ 125 mls/hr IV ASDIRECTED [facility] Stop: 07/20/20 23:00 Last Admin: 07/20/20 15:26 Dose: 125 mls/hr Documented by: Potassium Chloride/Sodium Chloride (Normal Saline With 40 Meq Kcl) 500 mls @ 50 mls/hr IV ASDIRECTED [facility] Potassium Chloride 10 meq/ (Premix) 100 mls @ 100 mls/hr IV Q1H [facility] Stop: 07/21/20 14:29 Last Admin: 07/21/20 15:58 Dose: 100 mls/hr Documented by: Potassium Chloride (Klor-Con M20) 40 meq PO ONETIME ONE Stop: 07/20/20 21:01 Last Admin: 07/20/20 21:06 Dose: 40 meq Documented by: - Exam Quality Assessment: Supplemental Oxygen (High flow O2), DVT Prophylaxis (Lovenox) General: Alert, Oriented, Cooperative, Mild Distress HEENT: Pupils Equal, Pupils Reactive, Mucous Membr. Moist/[place] Neck: Supple, Trachea Midline. No: Lymphadenopathy Lungs: Decreased Breath Sounds (On the left), Crackles (Noted on the right), Wheezing (Expiratory wheezes noted on the right) Cardiovascular: Regular Rate, Regular Rhythm, No Murmurs GI/Abdominal Exam: Normal Bowel Sounds, Soft, Non-Tender, No Distention (Male) Exam: Deferred Back Exam: Normal Inspection, Full Range of Motion Extremities: Normal Inspection, Normal Range of Motion, Non-Tender, No Pedal Edema, Normal Capillary Refill Peripheral Pulses: 2+: Radial (L), Radial (R), Dorsalis Pedis (L), Dorsalis Pedis (R) Skin: Warm, Dry, Intact Neurological: No New Focal Deficit Psy/Mental Status: Alert, Normal Affect, Normal Mood Sepsis Event Note - Evaluation Sepsis Screening Result: No Definite Risk - Focused Exam Vital Signs: Vital Signs Temp Pulse Resp BP Pulse Ox Pulse Ox 07/24/20 13:02 93 L 07/24/20 12:31 97.9 F 102 H 18 108/68 90 L 07/24/20 09:12 98.1 F 88 93 L 07/24/20 09:09 89 18 132/92 H 91 L 07/24/20 08:05 95 07/24/20 05:47 95 07/24/20 04:09 98.4 F 81 26 H 108/67 90 L - Problem List & Annotations (1) COVID-19 SNOMED Code(s): 900221969 Code(s): U07.1 - COVID-19 Status: Acute Priority: High Current Visit: Yes (2) Hypokalemia SNOMED Code(s): 39947213 Code(s): E87.6 - HYPOKALEMIA Status: Acute Priority: High Current Visit: Yes (3) Hypoxia SNOMED Code(s): 243263384 Code(s): R09.02 - HYPOXEMIA Status: Acute Priority: High Current Visit: Yes (4) Pneumonia due to COVID-19 virus SNOMED Code(s): 372135333263412054 Code(s): U07.1 - COVID-19; J12.89 - OTHER VIRAL PNEUMONIA Status: Acute Priority: High Current Visit: Yes (5) Renal insufficiency SNOMED Code(s): 218500899, 505111011 Code(s): N28.9 - DISORDER OF KIDNEY AND URETER, UNSPECIFIED Status: Acute Priority: High Current Visit: Yes - Problem List Review Problem List Initiated/Reviewed/Updated: Yes - My Orders Last 24 Hours: My Active Orders 07/24/20 09:00 Enoxaparin [Lovenox] 40 mg SUBCUT Q12H 07/24/20 09:06 Chest 1V Frontal [CR] Stat 07/24/20 10:49 PT Evaluation and Treatment [CONS] Routine 07/24/20 10:50 OT Evaluation and Treatment [CONS] Routine 07/24/20 Lunch Regular Diet [DIET] cefTRIAXone [Rocephin] 2 gm Sodium Chloride 0.9% [Normal Saline] 100 ml IV Q24H 07/24/20 13:30 Azithromycin [Zithromax] 500 mg Sodium Chloride 0.9% [Normal Saline (AdvBag)] 250 ml IV Q24H 07/25/20 05:11 C-REACTIVE PROTEIN [CHEM] DAILY CBC WITH AUTO DIFF [HEME] DAILY COMPREHENSIVE METABOLIC PN,CMP [CHEM] DAILY D-DIMER QUANTITATIVE [COAG] DAILY MAGNESIUM [CHEM] DAILY PHOSPHORUS [CHEM] DAILY - Assessment Assessment:: I have seen and examined the patient independent of nurse practitioner Carlos King and I have discussed the case with her. I have reviewed and agree with the assessment and plan as outlined for this patient by her. Please see orders. 07/20/10 * 1 week history of weakness, general malaise, poor appetite, shortness of breath and diarrhea * History of exposure to COVID-19 * History of COPD * Chest x-ray shows lung choe show prominence to the pulmonary interstitium. Minimal groundglass airspace disease at the lower lung choe bilaterally. * The patient did receive 40 mEq of potassium IV in the ER. Lab results: * Platelet count 411 * Potassium 2.5 * Anion gap 19.5 * BUN 37 * Creatinine 1.6 * GFR 44 * Glucose 132 * LDH 516 * Troponin 0 0.066 * C-reactive protein 26.0 * Lactic acid 1.8 * Ferritin 1692 * BNP 261 * D-dimer 1.01 Arterial blood gases: * pH 7.51 * PCO2 29.5 * PO2 62.0 * HCO3 23.0 * Currently on 5 L per nasal cannula Vital signs: * Temperature 100.7 * Pulse 118 * Respiratory rate 36 * Blood pressure 149/86 * Pulse ox 75% on room air; 90% on 5 L per nasal cannula Plan: * Start remdesivir. The risks and benefits were discussed with the patient. I offered him the patient and caregiver EUA remdesivir fact sheet to read and review. I stated the drug has been approved by an emergency use authorization process and has not fully been FDA reviewed or approved. The patient meets the EUA requirements. I shared that the drug may cause liver abnormalities and infusion related side effects. Additionally, other side effects are possible but not shown as the drug has had limited studies. I discussed there are other potential treatment options that are not currently FDA approved to treat COVID-19. Offered opportunity to ask questions and all questions were answered. The patient voiced understanding and agreed to proceed with the treatment for himself. * Start dexamethasone * Give 2 units of convalescent plasma. Consent was obtained prior. I spoke with him to provide information about convalescent plasma for himself. I offered him the fax sheet for patients and parents/caregivers for COVID-19 convalescent plasma to read and review. I stated the therapy has been approved by an emergency youth authorization process and has not fully been FDA reviewed or approved. I shared potential risks from the therapy including transmission of blood-borne pathogens such as HIV and hepatitis C, allergic and transfusion related reactions, post transfusion purpura. Additionally theoretical risks including a phenomenon called antibody dependent enhancement of infection such as is seen in dengue or attenuation of an immune response that may make patients more susceptible to reinfection. I discussed there are other potential treatment options that are currently not FDA approved to treat COVID-19. Offered opportunity to ask questions and all questions were answered. The patient voiced understanding and agreed to proceed with the treatment for himself. * Incentive spirometry * RT to titrate oxygen * PRN albuterol * Monitor for hypoxemia * Monitor lab work and replace electrolytes as needed * Renally dose medications * Continue home statin * Dietary consult * airfield services officer and discharge planning consult * Theophylline level * Repeat troponin 07/21/2020 The patient is a 64-year-old gentleman who was still short of breath today. He is currently on dexamethasone and this will continue. He has also had convalescent plasma. The patient will be kept at least enough to finish 5 days of remdesivir. Patient also had been hypokalemic and laboratory testing has been ordered and the patient will have electrolytes replaced as necessary. Continue with diet as tolerated. Encouraged to ambulate. 07/22/2020 The patient is a 64-year-old gentleman who has been tolerating the COVID-19 treatment well. The patient will be kept long enough to finish at least 5 days of remdesivir. I have advised the patient that he will need to go home with dexamethasone or equivalent. The patient's hypokalemia has resolved. I have ordered repeat laboratory studies for the morning to check the patient's electrolytes. He has been encouraged to continue with his current diet. I have encouraged the patient also to ambulate. 07/23/20 The patient is on day 4 of remdesivir and dexamethasone. Continues on high flow O2 with respiratory therapy attempting to titrate down. He on 60 L at 75% FiO2. Appetite remains poor he is however receiving protein supplements. He has been doing his incentive spirometer up to 1500. I encouraged him to be up in the chair 3 times daily with all meals and to start prone positioning. Will recheck lab work in the a.m. 07/24/20 Patient is on day 5 of remdesivir and dexamethasone. He does continue on high flow O2 at 60 L and 70%. Respiratory care continues to attempt to wean patient off of oxygen. Appetite remains poor encouraging patient to attempt to eat and consume 100% of protein supplements. Continues to use his incentive spirometer. Needs a lot of encouragement to get out of bed for meals. Did sleep in the prone position for a few hours last night. Vital signs remained stable and he has not had a fever in the past 24 hours. Nursing staff reports that patient is very weak when attempting to get out of bed. WBC 14.41 from 10.02 Platelet 795 from 6.25 D-dimer 0.95 from 0.77 Potassium 4.0 from 3.5 BUN 33 from 35 Creatinine 1.0 GFR greater than 60 C-reactive protein 4.9 from 7.7 Awaiting procalcitonin level Portable chest x-ray was obtained findings interval resolution of bibasilar opacities. Prominent interstitial changes in the right and left midlung/perihilar regions. No consolidation. - Plan Plan:: 07/20/10 * 1 week history of weakness, general malaise, poor appetite, shortness of taye th and diarrhea * History of exposure to COVID-19 * History of COPD * Chest x-ray shows lung choe show prominence to the pulmonary interstitium. Minimal groundglass airspace disease at the lower lung choe bilaterally. * The patient did receive 40 mEq of potassium IV in the ER. Lab results: * Platelet count 411 * Potassium 2.5 * Anion gap 19.5 * BUN 37 * Creatinine 1.6 * GFR 44 * Glucose 132 * LDH 516 * Troponin 0 0.066 * C-reactive protein 26.0 * Lactic acid 1.8 * Ferritin 1692 * BNP 261 * D-dimer 1.01 Arterial blood gases: * pH 7.51 * PCO2 29.5 * PO2 62.0 * HCO3 23.0 * Currently on 5 L per nasal cannula Vital signs: * Temperature 100.7 * Pulse 118 * Respiratory rate 36 * Blood pressure 149/86 * Pulse ox 75% on room air; 90% on 5 L per nasal cannula Plan: * Start remdesivir. The risks and benefits were discussed with the patient. I offered him the patient and caregiver EUA remdesivir fact sheet to read and review. I stated the drug has been approved by an emergency use authorization process and has not fully been FDA reviewed or approved. The patient meets the EUA requirements. I shared that the drug may cause liver abnormalities and infusion related side effects. Additionally, other side effects are possible but not shown as the drug has had limited studies. I discussed there are other potential treatment options that are not currently FDA approved to treat COVID-19. Offered opportunity to ask questions and all questions were answered. The patient voiced understanding and agreed to proceed with the treatment for himself. * Start dexamethasone * Give 2 units of convalescent plasma. Consent was obtained prior. I spoke with him to provide information about convalescent plasma for himself. I offered him the fax sheet for patients and parents/caregivers for COVID-19 convalescent plasma to read and review. I stated the therapy has been approved by an emergency youth authorization process and has not fully been FDA reviewed or approved. I shared potential risks from the therapy including transmission of blood-borne pathogens such as HIV and hepatitis C, allergic and transfusion related reactions, post transfusion purpura. Additionally theoretical risks including a phenomenon called antibody dependent enhancement of infection such as is seen in dengue or attenuation of an immune response that may make patients more susceptible to reinfection. I discussed there are other potential treatment options that are currently not FDA approved to treat COVID-19. Offered opportunity to ask questions and all questions were answered. The patient voiced understanding and agreed to proceed with the treatment for himself. * Incentive spirometry * RT to titrate oxygen * PRN albuterol * Monitor for hypoxemia * Monitor lab work and replace electrolytes as needed * Renally dose medications * Continue home statin * Dietary consult * airfield services officer and discharge planning consult * Theophylline level * Repeat troponin COVID-19,Hypoxia, Pneumonia due to COVID-19 virus -Remdesivir -Convalescent plasma -Dexamethasone -Monitor for hypoxia -RT to titrate O2 -IS -Albuterol nebs prn Hypokalemia -received 40meq KCL in ED -recheck labs in the am Renal insufficiency -renally dose medication -recheck labs in the am PROPHYLAXIS: DVT: Lovenox CODE STATUS: Full Code Disposition: Patient will be admitted to [facility] with telemetry and continuous pulse ox monitoring. airfield services officer to consult for discharge planning. Dietary to consult for caloric needs. The patient will likely be here greater than 96 hours due to needing treatment for COVID. 07/21/2020 The patient is a 64-year-old gentleman who was still short of breath today. He is currently on dexamethasone and this will continue. He has also had convalescent plasma. The patient will be kept at least enough to finish 5 days of remdesivir. Patient also had been hypokalemic and laboratory testing has been ordered and the patient will have electrolytes replaced as necessary. Continue with diet as tolerated. Encouraged to ambulate. 07/22/2020 The patient is a 64-year-old gentleman who has been tolerating the COVID-19 treatment well. The patient will be kept long enough to finish at least 5 days of remdesivir. I have advised the patient that he will need to go home with dexamethasone or equivalent. The patient's hypokalemia has resolved. I have ordered repeat laboratory studies for the morning to check the patient's electrolytes. He has been encouraged to continue with his current diet. I have encouraged the patient also to ambulate. 07/23/20 Continue remdesivir and dexamethasone. RT to continue to titrate oxygen and monitor for hypoxia patient to continue doing incentive spirometer. Recheck labs in the a.m. Continue with Lovenox for DVT prophylaxis. Will plan for patient discharge once oxygen can be weaned down. 07/24/20 Continue remdesivir and dexamethasone. Continue to attempt to titrate oxygen down. Monitor for hypoxia. Incentive spirometer. Continue with Lovenox for DVT prophylaxis. Start Zithromax and Rocephin. PT and OT to consult regarding strengthening. Recheck lab work in the a.m. Plan for discharge once the patient's oxygen can be titrated down to go home safely. <Aristeo Mortensen M - Last Filed: 07/24/20 15:22> - Patient Data Vitals - Most Recent: Last Vital Signs Temp 36.6 C 07/24/20 12:31 Pulse 102 H 07/24/20 12:31 Resp 18 07/24/20 12:31 BP 108/68 07/24/20 12:31 Pulse Ox 93 L 07/24/20 13:02 I&O - Last 24 Hours: Intake & Output 07/24/20 07/24/20 07/24/20 06:59 14:59 22:59 Intake Total 800 320 Output Total 1045 Balance -245 320 Lab Results Last 24 Hours: Laboratory Results - last 24 hr 07/24/20 07/24/20 07/24/20 Range/Units 04:24 04:24 04:24 WBC 14.41 H (4.23-9.07) K/mm3 RBC 4.72 (4.63-6.08) M/mm3 Hgb 13.7 (13.7-17.5) gm/dl Hct 42.2 (40.1-51.0) % MCV 89.4 (79.0-92.2) fl MCH 29.0 (25.7-32.2) pg MCHC 32.5 (32.2-35.5) g/dl RDW Std Deviation 40.9 (35.1-43.9) fL Plt Count 795 H D (163-337) K/mm3 MPV 9.5 (9.4-12.3) fl Neut % (Auto) 84.6 H (34.0-67.9) % Lymph % (Auto) 6.6 L (21.8-53.1) % [place] % (Auto) 7.0 (5.3-12.2) % Eos % (Auto) 0.1 L (0.8-7.0) Baso % (Auto) 0.2 (0.1-1.2) % Neut # (Auto) 12.19 H (1.78-5.38) K/mm3 Lymph # (Auto) 0.95 L (1.32-3.57) K/mm3 [place] # (Auto) 1.01 H (0.30-0.82) K/mm3 Eos # (Auto) 0.01 L (0.04-0.54) K/mm3 Baso # (Auto) 0.03 (0.01-0.08) K/mm3 Manual Slide Review Abnormal smear D-Dimer, Quantitative 0.95 H (0.19-0.50) mg/L Sodium 141 (136-145) mEq/L Potassium 4.0 (3.5-5.1) mEq/L Chloride 101 (98-107) mEq/L Carbon Dioxide 31 (21-32) mEq/L Anion Gap 13.0 (5-15) BUN 33 H (7-18) mg/dL Creatinine 1.0 (0.7-1.3) mg/dL Est Cr Clr Drug Dosing 68.23 mL/min Estimated GFR (MDRD) > 60 (>60) mL/min BUN/Creatinine Ratio 33.0 H (14-18) Glucose 113 (80-115) mg/dL Calcium 9.2 (8.5-10.1) mg/dL Phosphorus 3.0 (2.6-4.7) mg/dL Magnesium 2.3 (1.8-2.4) mg/dl Total Bilirubin 0.5 (0.2-1.0) mg/dL AST 39 H (15-37) U/L ALT 52 (16-63) U/L Alkaline Phosphatase 65 (46-116) U/L C-Reactive Protein 4.9 H* (<1.0) mg/dL Total Protein 7.1 (6.4-8.2) g/dl Albumin 2.3 L (3.4-5.0) g/dl Globulin 4.8 gm/dL Albumin/Globulin Ratio 0.5 L (1-2) [place] Results Last 24 Hours: Microbiology 07/20/20 09:00 Aerobic Blood Culture - Preliminary Blood - Venous - Lab Draw NO GROWTH AFTER 4 DAYS Anaerobic Blood Culture - Preliminary NO GROWTH AFTER 4 DAYS 07/20/20 08:50 Aerobic Blood Culture - Preliminary Blood - Venous NO GROWTH AFTER 4 DAYS Anaerobic Blood Culture - Preliminary NO GROWTH AFTER 4 DAYS Med Orders - Current: Current Medications Acetaminophen (Tylenol) 650 mg PO Q4H PRN PRN Reason: Pain (Mild 1-3)/fever Albuterol (Proventil Neb Soln) 2.5 mg NEB Q2H PRN PRN Reason: Shortness Of Breath/wheezing Albuterol (Proventil Hfa) 0 gm INH Q4H PRN PRN Reason: Wheezing Last Admin: 07/24/20 08:04 Dose: 2 puff Documented by: Aspirin (Halfprin) 81 mg PO DAILY [facility] Last Admin: 07/24/20 09:03 Dose: 81 mg Documented by: Dexamethasone (Dexamethasone) 6 mg PO DAILY [facility] Stop: 07/29/20 09:01 Last Admin: 07/24/20 09:04 Dose: 6 mg Documented by: Enoxaparin Sodium (Lovenox) 40 mg SUBCUT Q12H [facility] Last Admin: 07/24/20 09:04 Dose: 40 mg Documented by: Fluticasone Propionate (Flonase) 0 gm NASBOTH BID [facility] Last Admin: 07/24/20 09:03 Dose: 2 spray Documented by: Glycopyrrolate (Seebri Neohaler) 15.6 mcg IH BID [facility] Last Admin: 07/24/20 08:04 Dose: 1 cap.ec Documented by: Ceftriaxone Sodium 2 gm/ (Sodium Chloride) 100 mls @ 200 mls/hr IV Q24H [facility] Stop: 07/28/20 11:29 Last Admin: 07/24/20 12:34 Dose: 200 mls/hr Documented by: Azithromycin 500 mg/ Sodium (Chloride) 250 mls @ 250 mls/hr IV Q24H [facility] Stop: 07/26/20 14:29 Last Admin: 07/24/20 13:51 Dose: 250 mls/hr Documented by: Mometasone Furoate/Formoterol Fumar (Dulera 200-5 Mcg) 0 puff INH BID [facility] Last Admin: 07/24/20 08:03 Dose: 2 puff Documented by: Ondansetron HCl (Zofran) 4 mg IV Q6H PRN PRN Reason: Nausea/Vomiting Last Admin: 07/23/20 00:35 Dose: 4 mg Documented by: Pantoprazole Sodium (Protonix) 40 mg PO DAILY@0700 [facility] Last Admin: 07/24/20 06:35 Dose: 40 mg Documented by: Simvastatin (Zocor) 20 mg PO BEDTIME [facility] Last Admin: 07/23/20 21:52 Dose: 20 mg Documented by: Sodium Chloride (Saline Flush) 10 ml FLUSH ASDIRECTED PRN PRN Reason: Keep Vein Open Last Admin: 07/20/20 08:50 Dose: 10 ml Documented by: Theophylline (Theophylline Anhydrous) 600 mg PO DAILY [facility] Last Admin: 07/24/20 09:04 Dose: 600 mg Documented by: Discontinued Medications Enoxaparin Sodium (Lovenox) 40 mg SUBCUT Q12H [facility] Last Admin: 07/24/20 00:10 Dose: 40 mg Documented by: Potassium Chloride 10 meq/ (Premix) 100 mls @ 100 mls/hr IV Q1H TEO Stop: 07/20/20 13:59 Last Admin: 07/20/20 15:20 Dose: 100 mls/hr Documented by: Sodium Chloride (Normal Saline) 1,000 mls @ 150 mls/hr IV ASDIRECTED [facility] Last Admin: 07/20/20 10:17 Dose: 150 mls/hr Documented by: Remdesivir 200 mg/ Sodium (Chloride) 250 mls @ 250 mls/hr IV ONETIME ONE Stop: 07/20/20 13:29 Last Admin: 07/20/20 13:00 Dose: 250 mls/hr Documented by: Remdesivir 100 mg/ Sodium (Chloride) 100 mls @ 100 mls/hr IV Q24H TEO Stop: 07/24/20 13:29 Last Admin: 07/24/20 12:33 Dose: 100 mls/hr Documented by: Sodium Chloride (Normal Saline) 250 mls @ 125 mls/hr IV ASDIRECTED TEO Stop: 07/20/20 23:00 Last Admin: 07/20/20 15:26 Dose: 125 mls/hr Documented by: Potassium Chloride/Sodium Chloride (Normal Saline With 40 Meq Kcl) 500 mls @ 50 mls/hr IV ASDIRECTED [facility] Potassium Chloride 10 meq/ (Premix) 100 mls @ 100 mls/hr IV Q1H TEO Stop: 07/21/20 14:29 Last Admin: 07/21/20 15:58 Dose: 100 mls/hr Documented by: Potassium Chloride (Klor-Con M20) 40 meq PO ONETIME ONE Stop: 07/20/20 21:01 Last Admin: 07/20/20 21:06 Dose: 40 meq Documented by: Sepsis Event Note - Focused Exam Vital Signs: Vital Signs Temp Pulse Resp BP Pulse Ox Pulse Ox 07/24/20 13:02 93 L 07/24/20 12:31 36.6 C 102 H 18 108/68 90 L 07/24/20 09:12 36.7 C 88 93 L 07/24/20 09:09 89 18 132/92 H 91 L 07/24/20 08:05 95 07/24/20 05:47 95 07/24/20 04:09 36.9 C 81 26 H 108/67 90 L - Problem List & Annotations (1) Pneumonia due to COVID-19 virus SNOMED Code(s): 438889802010003677 Code(s): U07.1 - COVID-19; J12.89 - OTHER VIRAL PNEUMONIA Status: Acute Priority: High Current Visit: Yes (2) Hypokalemia SNOMED Code(s): 24593403 Code(s): E87.6 - HYPOKALEMIA Status: Acute Priority: High Current Visit: Yes (3) Hypoxia SNOMED Code(s): 680547425 Code(s): R09.02 - HYPOXEMIA Status: Acute Priority: High Current Visit: Yes - Plan Plan:: I have seen and examined the patient independent of nurse practitioner Carlos King and I have discussed the case with her. I have reviewed and agree with the assessment and plan as outlined for this patient by her. Please see orders.
[2020-07-24] MEDS: Azithromycin 500 MG in Sodium Chloride 0.9% 250 ML IV SCH (13:51)
[2020-07-24] MEDS: Simvastatin 20 MG Tab PO SCH (21:01)
[2020-07-25] MEDS: Pantoprazole 40 MG Tab.CR PO SCH (06:58)
[2020-07-25] MEDS: Dexamethasone 4 MG Tab PO SCH (08:40)
[2020-07-25] MEDS: Aspirin 81 MG Tab.EC PO SCH (08:40)
[2020-07-25] MEDS: Enoxaparin 40 MG/0.4 ML Syringe SUBCUT SCH ×2 (08:41→20:56)
[2020-07-25] MEDS: Theophylline 300 MG Tab.ER PO SCH ×2 (08:41)
[2020-07-25] MEDS: Fluticasone Propionate Nasal Spray 16 GM Bottle NASBOTH SCH ×2 (08:41→21:04)
[2020-07-25] MEDS: Formoterol/Mometasone 200-5 MCG 13 GM Inhaler INH SCH ×2 (09:39→20:46)
[2020-07-25] MEDS: Glycopyrrolate 15.6 MCG Cap.W.Dev Kit of 6 IH SCH ×2 (09:39→20:46)
[2020-07-25] MEDS: Albuterol 6.7 GM Inhaler INH PRN ×2 (09:39→20:46)
[2020-07-25] MEDS: cefTRIAXone 2 GM in Sodium Chloride 0.9% 100 ML IV SCH (10:31)
--- NOTE | 2020-07-25 13:26 | PCM.PN ---
<ChristineCarlos M - Last Filed: 07/25/20 13:27> - General Info Date of Service: 07/25/20 Admission Dx/Problem (Free Text): Admission Diagnosis/Problem Admission Diagnosis/Problem Hypoxia Subjective Update: Reports feeling better today. Has been sitting up in the chair most of the morning. Reports a cough with nonproductive sputum. Functional Status: Reports: Pain Controlled. Denies: Tolerating Diet (Appetite is poor) - Review of Systems General: Reports: Fatigue. Denies: Appetite HEENT: Reports: No Symptoms Pulmonary: Reports: Shortness of Breath, Cough, Wheezing. Denies: Sputum Cardiovascular: Reports: No Symptoms Gastrointestinal: Reports: Decreased Appetite Genitourinary: Reports: No Symptoms Musculoskeletal: Reports: No Symptoms Skin: Reports: No Symptoms Neurological: Reports: No Symptoms Psychiatric: Reports: No Symptoms - Patient Data Vitals - Most Recent: Last Vital Signs Temp 98.4 F 07/25/20 11:41 Pulse 114 H 07/25/20 11:41 Resp 16 07/25/20 11:40 BP 105/70 07/25/20 11:41 Pulse Ox 86 L 07/25/20 11:41 Weight - Most Recent: 82.327 kg I&O - Last 24 Hours: Intake & Output 07/24/20 07/25/20 07/25/20 22:59 06:59 14:59 Intake Total 1970 700 Output Total 475 450 Balance 1495 250 Lab Results Last 24 Hours: Laboratory Results - last 24 hr 07/23/20 07/25/20 07/25/20 Range/Units 05:30 05:05 05:05 WBC 12.45 H (4.23-9.07) K/mm3 RBC 4.22 L (4.63-6.08) M/mm3 Hgb 12.2 L D (13.7-17.5) gm/dl Hct 38.2 L (40.1-51.0) % MCV 90.5 (79.0-92.2) fl MCH 28.9 (25.7-32.2) pg MCHC 31.9 L (32.2-35.5) g/dl RDW Std Deviation 40.4 (35.1-43.9) fL Plt Count 733 H (163-337) K/mm3 MPV 9.3 L (9.4-12.3) fl Neut % (Auto) 82.2 H (34.0-67.9) % Lymph % (Auto) 8.1 L (21.8-53.1) % Smyth % (Auto) 7.2 (5.3-12.2) % Eos % (Auto) 0.1 L (0.8-7.0) Baso % (Auto) 0.2 (0.1-1.2) % Neut # (Auto) 10.23 H (1.78-5.38) K/mm3 Lymph # (Auto) 1.01 L (1.32-3.57) K/mm3 Smyth # (Auto) 0.90 H (0.30-0.82) K/mm3 Eos # (Auto) 0.01 L (0.04-0.54) K/mm3 Baso # (Auto) 0.02 (0.01-0.08) K/mm3 Manual Slide Review Abnormal smear D-Dimer, Quantitative 1.26 H (0.19-0.50) mg/L Sodium (136-145) mEq/L Potassium (3.5-5.1) mEq/L Chloride (98-107) mEq/L Carbon Dioxide (21-32) mEq/L Anion Gap (5-15) BUN (7-18) mg/dL Creatinine (0.7-1.3) mg/dL Est Cr Clr Drug Dosing mL/min Estimated GFR (MDRD) (>60) mL/min BUN/Creatinine Ratio (14-18) Glucose (80-115) mg/dL Calcium (8.5-10.1) mg/dL Phosphorus (2.6-4.7) mg/dL Magnesium (1.8-2.4) mg/dl Total Bilirubin (0.2-1.0) mg/dL AST (15-37) U/L ALT (16-63) U/L Alkaline Phosphatase (46-116) U/L C-Reactive Protein (<1.0) mg/dL Total Protein (6.4-8.2) g/dl Albumin (3.4-5.0) g/dl Globulin gm/dL Albumin/Globulin Ratio (1-2) Procalcitonin 0.46 H (<0.10) ng/mL 07/25/20 Range/Units 05:05 WBC (4.23-9.07) K/mm3 RBC (4.63-6.08) M/mm3 Hgb (13.7-17.5) gm/dl Hct (40.1-51.0) % MCV (79.0-92.2) fl MCH (25.7-32.2) pg MCHC (32.2-35.5) g/dl RDW Std Deviation (35.1-43.9) fL Plt Count (163-337) K/mm3 MPV (9.4-12.3) fl Neut % (Auto) (34.0-67.9) % Lymph % (Auto) (21.8-53.1) % Smyth % (Auto) (5.3-12.2) % Eos % (Auto) (0.8-7.0) Baso % (Auto) (0.1-1.2) % Neut # (Auto) (1.78-5.38) K/mm3 Lymph # (Auto) (1.32-3.57) K/mm3 Smyth # (Auto) (0.30-0.82) K/mm3 Eos # (Auto) (0.04-0.54) K/mm3 Baso # (Auto) (0.01-0.08) K/mm3 Manual Slide Review D-Dimer, Quantitative (0.19-0.50) mg/L Sodium 139 (136-145) mEq/L Potassium 4.1 (3.5-5.1) mEq/L Chloride 102 (98-107) mEq/L Carbon Dioxide 32 (21-32) mEq/L Anion Gap 9.1 (5-15) BUN 32 H (7-18) mg/dL Creatinine 0.9 (0.7-1.3) mg/dL Est Cr Clr Drug Dosing 75.81 mL/min Estimated GFR (MDRD) > 60 (>60) mL/min BUN/Creatinine Ratio 35.6 H (14-18) Glucose 114 (80-115) mg/dL Calcium 8.7 (8.5-10.1) mg/dL Phosphorus 3.4 (2.6-4.7) mg/dL Magnesium 2.2 (1.8-2.4) mg/dl Total Bilirubin 0.4 (0.2-1.0) mg/dL AST 31 (15-37) U/L ALT 46 (16-63) U/L Alkaline Phosphatase 53 (46-116) U/L C-Reactive Protein 2.7 H* (<1.0) mg/dL Total Protein 6.3 L (6.4-8.2) g/dl Albumin 2.1 L (3.4-5.0) g/dl Globulin 4.2 gm/dL Albumin/Globulin Ratio 0.5 L (1-2) Procalcitonin (<0.10) ng/mL [place] Results Last 24 Hours: Microbiology 07/20/20 09:00 Aerobic Blood Culture - Preliminary Blood - Venous - Lab Draw NO GROWTH AFTER 5 DAYS Anaerobic Blood Culture - Preliminary NO GROWTH AFTER 5 DAYS 07/20/20 08:50 Aerobic Blood Culture - Preliminary Blood - Venous NO GROWTH AFTER 5 DAYS Anaerobic Blood Culture - Preliminary NO GROWTH AFTER 5 DAYS Med Orders - Current: Current Medications Acetaminophen (Tylenol) 650 mg PO Q4H PRN PRN Reason: Pain (Mild 1-3)/fever Albuterol (Proventil Neb Soln) 2.5 mg NEB Q2H PRN PRN Reason: Shortness Of Breath/wheezing Albuterol (Proventil Hfa) 0 gm INH Q4H PRN PRN Reason: Wheezing Last Admin: 07/25/20 09:39 Dose: 2 puff Documented by: Aspirin (Halfprin) 81 mg PO DAILY [facility] Last Admin: 07/25/20 08:40 Dose: 81 mg Documented by: Dexamethasone (Dexamethasone) 6 mg PO DAILY [facility] Stop: 07/29/20 09:01 Last Admin: 07/25/20 08:40 Dose: 6 mg Documented by: Enoxaparin Sodium (Lovenox) 40 mg SUBCUT Q12H [facility] Last Admin: 07/25/20 08:41 Dose: 40 mg Documented by: Fluticasone Propionate (Flonase) 0 gm NASBOTH BID [facility] Last Admin: 07/25/20 08:41 Dose: 1 spray Documented by: Glycopyrrolate (Seebri Neohaler) 15.6 mcg IH BID [facility] Last Admin: 07/25/20 09:39 Dose: 1 cap.ec Documented by: Ceftriaxone Sodium 2 gm/ (Sodium Chloride) 100 mls @ 200 mls/hr IV Q24H [facility] Stop: 07/28/20 11:29 Last Admin: 10/21/20 10:31 Dose: 200 mls/hr Documented by: Azithromycin 500 mg/ Sodium (Chloride) 250 mls @ 250 mls/hr IV Q24H [facility] Stop: 07/26/20 14:29 Last Admin: 07/24/20 13:51 Dose: 250 mls/hr Documented by: Mometasone Furoate/Formoterol Fumar (Dulera 200-5 Mcg) 0 puff INH BID [facility] Last Admin: 07/25/20 09:39 Dose: 2 puff Documented by: Ondansetron HCl (Zofran) 4 mg IV Q6H PRN PRN Reason: Nausea/Vomiting Last Admin: 07/23/20 00:35 Dose: 4 mg Documented by: Pantoprazole Sodium (Protonix) 40 mg PO DAILY@0700 [facility] Last Admin: 07/25/20 06:58 Dose: 40 mg Documented by: Simvastatin (Zocor) 20 mg PO BEDTIME [facility] Last Admin: 07/24/20 21:01 Dose: 20 mg Documented by: Sodium Chloride (Saline Flush) 10 ml FLUSH ASDIRECTED PRN PRN Reason: Keep Vein Open Last Admin: 07/20/20 08:50 Dose: 10 ml Documented by: Theophylline (Theophylline Anhydrous) 600 mg PO DAILY [facility] Last Admin: 07/25/20 08:41 Dose: 600 mg Documented by: Discontinued Medications Enoxaparin Sodium (Lovenox) 40 mg SUBCUT Q12H [facility] Last Admin: 07/24/20 00:10 Dose: 40 mg Documented by: Potassium Chloride 10 meq/ (Premix) 100 mls @ 100 mls/hr IV Q1H [facility] Stop: 07/20/20 13:59 Last Admin: 07/20/20 15:20 Dose: 100 mls/hr Documented by: Sodium Chloride (Normal Saline) 1,000 mls @ 150 mls/hr IV ASDIRECTED [facility] Last Admin: 07/20/20 10:17 Dose: 150 mls/hr Documented by: Remdesivir 200 mg/ Sodium (Chloride) 250 mls @ 250 mls/hr IV ONETIME ONE Stop: 07/20/20 13:29 Last Admin: 07/20/20 13:00 Dose: 250 mls/hr Documented by: Remdesivir 100 mg/ Sodium (Chloride) 100 mls @ 100 mls/hr IV Q24H [facility] Stop: 07/24/20 13:29 Last Admin: 07/24/20 12:33 Dose: 100 mls/hr Documented by: Sodium Chloride (Normal Saline) 250 mls @ 125 mls/hr IV ASDIRECTED [facility] Stop: 07/20/20 23:00 Last Admin: 07/20/20 15:26 Dose: 125 mls/hr Documented by: Potassium Chloride/Sodium Chloride (Normal Saline With 40 Meq Kcl) 500 mls @ 50 mls/hr IV ASDIRECTED [facility] Potassium Chloride 10 meq/ (Premix) 100 mls @ 100 mls/hr IV Q1H [facility] Stop: 07/21/20 14:29 Last Admin: 07/21/20 15:58 Dose: 100 mls/hr Documented by: Potassium Chloride (Klor-Con M20) 40 meq PO ONETIME ONE Stop: 07/20/20 21:01 Last Admin: 07/20/20 21:06 Dose: 40 meq Documented by: - Exam Quality Assessment: Supplemental Oxygen (High flow), DVT Prophylaxis (Lovenox) General: Alert, Oriented, Cooperative, Mild Distress HEENT: Pupils Equal, Mucous Membr. Moist/[place] Neck: Supple, Trachea Midline. No: Lymphadenopathy Lungs: Decreased Breath Sounds, Crackles (Fine crackles noted on the right posterior lobe), Wheezing (Faint inspiratory and expiratory wheezes noted bilaterally) Cardiovascular: Regular Rate, Regular Rhythm, No Murmurs GI/Abdominal Exam: Normal Bowel Sounds, Soft, Non-Tender, No Distention (Reports no diarrhea today) (Male) Exam: Deferred Back Exam: Normal Inspection, Full Range of Motion Extremities: Normal Inspection, Normal Range of Motion, Non-Tender, No Pedal Edema, Normal Capillary Refill Peripheral Pulses: 2+: Radial (L), Radial (R), Dorsalis Pedis (L), Dorsalis Pedis (R) Skin: Warm, Dry, Intact Neurological: No New Focal Deficit Psy/Mental Status: Alert, Normal Affect, Normal Mood Sepsis Event Note - Evaluation Sepsis Screening Result: No Definite Risk - Focused Exam Vital Signs: Vital Signs Temp Temp Pulse Pulse Resp BP BP 07/25/20 11:41 98.4 F 114 H 105/70 07/25/20 11:40 98.4 F 110 H 16 105/70 07/25/20 10:07 07/25/20 09:39 07/25/20 07:38 97.5 F 76 16 118/82 07/25/20 07:18 07/25/20 05:18 07/25/20 04:23 97.9 F 75 20 108/87 Pulse Ox Pulse Ox 07/25/20 11:41 86 L 07/25/20 11:40 85 L 07/25/20 10:07 91 L 07/25/20 09:39 95 07/25/20 07:38 85 L 07/25/20 07:18 94 L 07/25/20 05:18 96 07/25/20 04:23 91 L - Problem List & Annotations (1) COVID-19 SNOMED Code(s): 704214682 Code(s): U07.1 - COVID-19 Status: Acute Priority: High Current Visit: Yes (2) Hypokalemia SNOMED Code(s): 31455692 Code(s): E87.6 - HYPOKALEMIA Status: Acute Priority: High Current Visit: Yes (3) Hypoxia SNOMED Code(s): 582812563 Code(s): R09.02 - HYPOXEMIA Status: Acute Priority: High Current Visit: Yes (4) Pneumonia due to COVID-19 virus SNOMED Code(s): 514091019369065833 Code(s): U07.1 - COVID-19; J12.89 - OTHER VIRAL PNEUMONIA Status: Acute Priority: High Current Visit: Yes (5) Renal insufficiency SNOMED Code(s): 906356621, 683310529 Code(s): N28.9 - DISORDER OF KIDNEY AND URETER, UNSPECIFIED Status: Acute Priority: High Current Visit: Yes - Problem List Review Problem List Initiated/Reviewed/Updated: Yes - My Orders Last 24 Hours: My Active Orders 07/24/20 13:30 Azithromycin [Zithromax] 500 mg Sodium Chloride 0.9% [Normal Saline (AdvBag)] 250 ml IV Q24H - Assessment Assessment:: I have seen and examined the patient independent of nurse practitioner Carlos King and I have discussed the case with her. I have reviewed and agree with the assessment and plan as outlined for this patient by her. Please see orders. 07/20/10 * 1 week history of weakness, general malaise, poor appetite, shortness of breath and diarrhea * History of exposure to COVID-19 * History of COPD * Chest x-ray shows lung choe show prominence to the pulmonary interstitium. Minimal groundglass airspace disease at the lower lung choe bilaterally. * The patient did receive 40 mEq of potassium IV in the ER. Lab results: * Platelet count 411 * Potassium 2.5 * Anion gap 19.5 * BUN 37 * Creatinine 1.6 * GFR 44 * Glucose 132 * LDH 516 * Troponin 0 0.066 * C-reactive protein 26.0 * Lactic acid 1.8 * Ferritin 1692 * BNP 261 * D-dimer 1.01 Arterial blood gases: * pH 7.51 * PCO2 29.5 * PO2 62.0 * HCO3 23.0 * Currently on 5 L per nasal cannula Vital signs: * Temperature 100.7 * Pulse 118 * Respiratory rate 36 * Blood pressure 149/86 * Pulse ox 75% on room air; 90% on 5 L per nasal cannula Plan: * Start remdesivir. The risks and benefits were discussed with the patient. I offered him the patient and caregiver [employer] remdesivir fact sheet to read and review. I stated the drug has been approved by an emergency use authorization process and has not fully been FDA reviewed or approved. The patient meets the EUA requirements. I shared that the drug may cause liver abnormalities and infusion related side effects. Additionally, other side effects are possible but not shown as the drug has had limited studies. I discussed there are other potential treatment options that are not currently FDA approved to treat COVID-19. Offered opportunity to ask questions and all questions were answered. The patient voiced understanding and agreed to proceed with the treatment for himself. * Start dexamethasone * Give 2 units of convalescent plasma. Consent was obtained prior. I spoke with him to provide information about convalescent plasma for himself. I offered him the fax sheet for patients and parents/caregivers for COVID-19 convalescent plasma to read and review. I stated the therapy has been approved by an emergency youth authorization process and has not fully been FDA reviewed or approved. I shared potential risks from the therapy including transmission of blood-borne pathogens such as HIV and hepatitis C, allergic and transfusion related reactions, post transfusion purpura. Additionally theoretical risks including a phenomenon called antibody dependent enhancement of infection such as is seen in dengue or attenuation of an immune response that may make patients more susceptible to reinfection. I discussed there are other potential treatment options that are currently not FDA approved to treat COVID-19. Offered opportunity to ask questions and all questions were a nswered. The patient voiced understanding and agreed to proceed with the treatment for himself. * Incentive spirometry * RT to titrate oxygen * PRN albuterol * Monitor for hypoxemia * Monitor lab work and replace electrolytes as needed * Renally dose medications * Continue home statin * Dietary consult * relocation services specialist and discharge planning consult * Theophylline level * Repeat troponin 07/21/2020 The patient is a 64-year-old gentleman who was still short of breath today. He is currently on dexamethasone and this will continue. He has also had convalescent plasma. The patient will be kept at least enough to finish 5 days of remdesivir. Patient also had been hypokalemic and laboratory testing has been ordered and the patient will have electrolytes replaced as necessary. Continue with diet as tolerated. Encouraged to ambulate. 07/22/2020 The patient is a 64-year-old gentleman who has been tolerating the COVID-19 treatment well. The patient will be kept long enough to finish at least 5 days of remdesivir. I have advised the patient that he will need to go home with dexamethasone or equivalent. The patient's hypokalemia has resolved. I have ordered repeat laboratory studies for the morning to check the patient's electrolytes. He has been encouraged to continue with his current diet. I have encouraged the patient also to ambulate. 07/23/20 The patient is on day 4 of remdesivir and dexamethasone. Continues on high flow O2 with respiratory therapy attempting to titrate down. He on 60 L at 75% FiO2. Appetite remains poor he is however receiving protein supplements. He has been doing his incentive spirometer up to 1500. I encouraged him to be up in the chair 3 times daily with all meals and to start prone positioning. Will recheck lab work in the a.m. 07/24/20 Patient is on day 5 of remdesivir and dexamethasone. He does continue on high flow O2 at 60 L and 70%. Respiratory care continues to attempt to wean patient off of oxygen. Appetite remains poor encouraging patient to attempt to eat and consume 100% of protein supplements. Continues to use his incentive spirometer. Needs a lot of encouragement to get out of bed for meals. Did sleep in the prone position for a few hours last night. Vital signs remained stable and he has not had a fever in the past 24 hours. Nursing staff reports that patient is very weak when attempting to get out of bed. WBC 14.41 from 10.02 Platelet 795 from 6.25 D-dimer 0.95 from 0.77 Potassium 4.0 from 3.5 BUN 33 from 35 Creatinine 1.0 GFR greater than 60 C-reactive protein 4.9 from 7.7 Awaiting procalcitonin level Portable chest x-ray was obtained findings interval resolution of bibasilar opacities. Prominent interstitial changes in the right and left midlung/perihilar regions. No consolidation. 07/25/20 Continues to be on high flow O2, however respiratory care is titrating this down. He is on day 6 of dexamethasone. He is on day 3 of Zithromax and Rocephin. Appetite is still poor encouraging to eat and consume protein supplements and increase fluid intake. Has been using his incentive spirometer. Has been sleeping in the prone position and from side to side intermittently. Vital signs remained stable. WBC 12.45 Platelets 733 D-dimer 1.26 BUN 32 Creatinine 0.9 GFR greater than 60 C-reactive protein 2.7 Procalcitonin 0.46 - Plan Plan:: 07/25/20 Continue dexamethasone for a total of 10 days. Continue to attempt to titrate oxygen down. Monitor for hypoxia. Incentive spirometer. Continue with Lovenox for DVT prophylaxis. Continue Zithromax and Rocephin. PT and OT to consult regarding strengthening. Recheck lab work in the a.m. Plan for discharge once the patient's oxygen can be titrated down to go home safely. <Aristeo Mortensen - Last Filed: 07/25/20 17:51> - Patient Data Vitals - Most Recent: Last Vital Signs Temp 36.4 C 07/25/20 15:19 Pulse 94 07/25/20 15:19 Resp 16 07/25/20 15:19 BP 117/76 07/25/20 15:19 Pulse Ox 93 L 07/25/20 17:10 I&O - Last 24 Hours: Intake & Output 07/25/20 07/25/20 07/25/20 06:59 14:59 22:59 Intake Total 700 1500 Output Total 450 Balance 250 1500 Lab Results Last 24 Hours: Laboratory Results - last 24 hr 07/23/20 07/25/20 07/25/20 Range/Units 05:30 05:05 05:05 WBC 12.45 H (4.23-9.07) K/mm3 RBC 4.22 L (4.63-6.08) M/mm3 Hgb 12.2 L D (13.7-17.5) gm/dl Hct 38.2 L (40.1-51.0) % MCV 90.5 (79.0-92.2) fl MCH 28.9 (25.7-32.2) pg MCHC 31.9 L (32.2-35.5) g/dl RDW Std Deviation 40.4 (35.1-43.9) fL Plt Count 733 H (163-337) K/mm3 MPV 9.3 L (9.4-12.3) fl Neut % (Auto) 82.2 H (34.0-67.9) % Lymph % (Auto) 8.1 L (21.8-53.1) % Smyth % (Auto) 7.2 (5.3-12.2) % Eos % (Auto) 0.1 L (0.8-7.0) Baso % (Auto) 0.2 (0.1-1.2) % Neut # (Auto) 10.23 H (1.78-5.38) K/mm3 Lymph # (Auto) 1.01 L (1.32-3.57) K/mm3 Smyth # (Auto) 0.90 H (0.30-0.82) K/mm3 Eos # (Auto) 0.01 L (0.04-0.54) K/mm3 Baso # (Auto) 0.02 (0.01-0.08) K/mm3 Manual Slide Review Abnormal smear D-Dimer, Quantitative 1.26 H (0.19-0.50) mg/L Sodium (136-145) mEq/L Potassium (3.5-5.1) mEq/L Chloride (98-107) mEq/L Carbon Dioxide (21-32) mEq/L Anion Gap (5-15) BUN (7-18) mg/dL Creatinine (0.7-1.3) mg/dL Est Cr Clr Drug Dosing mL/min Estimated GFR (MDRD) (>60) mL/min BUN/Creatinine Ratio (14-18) Glucose (80-115) mg/dL Calcium (8.5-10.1) mg/dL Phosphorus (2.6-4.7) mg/dL Magnesium (1.8-2.4) mg/dl Total Bilirubin (0.2-1.0) mg/dL AST (15-37) U/L ALT (16-63) U/L Alkaline Phosphatase (46-116) U/L C-Reactive Protein (<1.0) mg/dL Total Protein (6.4-8.2) g/dl Albumin (3.4-5.0) g/dl Globulin gm/dL Albumin/Globulin Ratio (1-2) Procalcitonin 0.46 H (<0.10) ng/mL 07/25/20 Range/Units 05:05 WBC (4.23-9.07) K/mm3 RBC (4.63-6.08) M/mm3 Hgb (13.7-17.5) gm/dl Hct (40.1-51.0) % MCV (79.0-92.2) fl MCH (25.7-32.2) pg MCHC (32.2-35.5) g/dl RDW Std Deviation (35.1-43.9) fL Plt Count (163-337) K/mm3 MPV (9.4-12.3) fl Neut % (Auto) (34.0-67.9) % Lymph % (Auto) (21.8-53.1) % Smyth % (Auto) (5.3-12.2) % Eos % (Auto) (0.8-7.0) Baso % (Auto) (0.1-1.2) % Neut # (Auto) (1.78-5.38) K/mm3 Lymph # (Auto) (1.32-3.57) K/mm3 Smyth # (Auto) (0.30-0.82) K/mm3 Eos # (Auto) (0.04-0.54) K/mm3 Baso # (Auto) (0.01-0.08) K/mm3 Manual Slide Review D-Dimer, Quantitative (0.19-0.50) mg/L Sodium 139 (136-145) mEq/L Potassium 4.1 (3.5-5.1) mEq/L Chloride 102 (98-107) mEq/L Carbon Dioxide 32 (21-32) mEq/L Anion Gap 9.1 (5-15) BUN 32 H (7-18) mg/dL Creatinine 0.9 (0.7-1.3) mg/dL Est Cr Clr Drug Dosing 75.81 mL/min Estimated GFR (MDRD) > 60 (>60) mL/min BUN/Creatinine Ratio 35.6 H (14-18) Glucose 114 (80-115) mg/dL Calcium 8.7 (8.5-10.1) mg/dL Phosphorus 3.4 (2.6-4.7) mg/dL Magnesium 2.2 (1.8-2.4) mg/dl Total Bilirubin 0.4 (0.2-1.0) mg/dL AST 31 (15-37) U/L ALT 46 (16-63) U/L Alkaline Phosphatase 53 (46-116) U/L C-Reactive Protein 2.7 H* (<1.0) mg/dL Total Protein 6.3 L (6.4-8.2) g/dl Albumin 2.1 L (3.4-5.0) g/dl Globulin 4.2 gm/dL Albumin/Globulin Ratio 0.5 L (1-2) Procalcitonin (<0.10) ng/mL [facility] Results Last 24 Hours: Microbiology 07/20/20 09:00 Aerobic Blood Culture - Preliminary Blood - Venous - Lab Draw NO GROWTH AFTER 5 DAYS Anaerobic Blood Culture - Preliminary NO GROWTH AFTER 5 DAYS 07/20/20 08:50 Aerobic Blood Culture - Preliminary Blood - Venous NO GROWTH AFTER 5 DAYS Anaerobic Blood Culture - Preliminary NO GROWTH AFTER 5 DAYS Med Orders - Current: Current Medications Acetaminophen (Tylenol) 650 mg PO Q4H PRN PRN Reason: Pain (Mild 1-3)/fever Albuterol (Proventil Neb Soln) 2.5 mg NEB Q2H PRN PRN Reason: Shortness Of Breath/wheezing Albuterol (Proventil Hfa) 0 gm INH Q4H PRN PRN Reason: Wheezing Last Admin: 07/25/20 09:39 Dose: 2 puff Documented by: Aspirin (Halfprin) 81 mg PO DAILY [facility] Last Admin: 07/25/20 08:40 Dose: 81 mg Documented by: Dexamethasone (Dexamethasone) 6 mg PO DAILY [facility] Stop: 07/29/20 09:01 Last Admin: 07/25/20 08:40 Dose: 6 mg Documented by: Enoxaparin Sodium (Lovenox) 40 mg SUBCUT Q12H [facility] Last Admin: 07/25/20 08:41 Dose: 40 mg Documented by: Fluticasone Propionate (Flonase) 0 gm NASBOTH BID [facility] Last Admin: 07/25/20 08:41 Dose: 1 spray Documented by: Glycopyrrolate (Seebri Neohaler) 15.6 mcg IH BID [facility] Last Admin: 07/25/20 09:39 Dose: 1 cap.ec Documented by: Ceftriaxone Sodium 2 gm/ (Sodium Chloride) 100 mls @ 200 mls/hr IV Q24H [facility] Stop: 07/28/20 11:29 Last Admin: 07/25/20 10:31 Dose: 200 mls/hr Documented by: Azithromycin 500 mg/ Sodium (Chloride) 250 mls @ 250 mls/hr IV Q24H [facility] Stop: 07/26/20 14:29 Last Admin: 07/25/20 14:11 Dose: 250 mls/hr Documented by: Mometasone Furoate/Formoterol Fumar (Dulera 200-5 Mcg) 0 puff INH BID [facility] Last Admin: 07/25/20 09:39 Dose: 2 puff Documented by: Ondansetron HCl (Zofran) 4 mg IV Q6H PRN PRN Reason: Nausea/Vomiting Last Admin: 07/23/20 00:35 Dose: 4 mg Documented by: Pantoprazole Sodium (Protonix) 40 mg PO DAILY@0700 [facility] Last Admin: 07/25/20 06:58 Dose: 40 mg Documented by: Simvastatin (Zocor) 20 mg PO BEDTIME [facility] Last Admin: 07/24/20 21:01 Dose: 20 mg Documented by: Sodium Chloride (Saline Flush) 10 ml FLUSH ASDIRECTED PRN PRN Reason: Keep Vein Open Last Admin: 07/20/20 08:50 Dose: 10 ml Documented by: Theophylline (Theophylline Anhydrous) 600 mg PO DAILY [facility] Last Admin: 07/25/20 08:41 Dose: 600 mg Documented by: Discontinued Medications Enoxaparin Sodium (Lovenox) 40 mg SUBCUT Q12H [facility] Last Admin: 07/24/20 00:10 Dose: 40 mg Documented by: Potassium Chloride 10 meq/ (Premix) 100 mls @ 100 mls/hr IV Q1H [facility] Stop: 07/20/20 13:59 Last Admin: 07/20/20 15:20 Dose: 100 mls/hr Documented by: Sodium Chloride (Normal Saline) 1,000 mls @ 150 mls/hr IV ASDIRECTED [facility] Last Admin: 07/20/20 10:17 Dose: 150 mls/hr Documented by: Remdesivir 200 mg/ Sodium (Chloride) 250 mls @ 250 mls/hr IV ONETIME ONE Stop: 07/20/20 13:29 Last Admin: 07/20/20 13:00 Dose: 250 mls/hr Documented by: Remdesivir 100 mg/ Sodium (Chloride) 100 mls @ 100 mls/hr IV Q24H [facility] Stop: 07/24/20 13:29 Last Admin: 07/24/20 12:33 Dose: 100 mls/hr Documented by: Sodium Chloride (Normal Saline) 250 mls @ 125 mls/hr IV ASDIRECTED [facility] Stop: 07/20/20 23:00 Last Admin: 07/20/20 15:26 Dose: 125 mls/hr Documented by: Potassium Chloride/Sodium Chloride (Normal Saline With 40 Meq Kcl) 500 mls @ 50 mls/hr IV ASDIRECTED [facility] Potassium Chloride 10 meq/ (Premix) 100 mls @ 100 mls/hr IV Q1H [facility] Stop: 07/21/20 14:29 Last Admin: 07/21/20 15:58 Dose: 100 mls/hr Documented by: Potassium Chloride (Klor-Con [id number]) 40 meq PO ONETIME ONE Stop: 07/20/20 21:01 Last Admin: 07/20/20 21:06 Dose: 40 meq Documented by: Sepsis Event Note - Focused Exam Vital Signs: Vital Signs Temp Temp Pulse Pulse Resp BP BP 07/25/20 17:10 07/25/20 17:00 07/25/20 16:25 07/25/20 15:50 07/25/20 15:19 36.4 C 94 16 117/76 07/25/20 13:13 07/25/20 12:00 07/25/20 11:41 36.9 C 114 H 105/70 07/25/20 11:40 36.9 C 110 H 16 105/70 07/25/20 10:07 07/25/20 09:39 07/25/20 07:38 36.4 C 76 16 118/82 07/25/20 07:18 Pulse Ox Pulse Ox 07/25/20 17:10 93 L 07/25/20 17:00 95 07/25/20 16:25 92 L 07/25/20 15:50 94 L 07/25/20 15:19 90 L 07/25/20 13:13 92 L 07/25/20 12:00 92 L 07/25/20 11:41 86 L 07/25/20 11:40 85 L 07/25/20 10:07 91 L 07/25/20 09:39 95 07/25/20 07:38 85 L 07/25/20 07:18 94 L - Problem List & Annotations (1) Pneumonia due to COVID-19 virus SNOMED Code(s): 887892366298187598 Code(s): U07.1 - COVID-19; J12.89 - OTHER VIRAL PNEUMONIA Status: Acute Priority: High Current Visit: Yes (2) Hypokalemia SNOMED Code(s): 49511733 Code(s): E87.6 - HYPOKALEMIA Status: Acute Priority: High Current Visit: Yes (3) Hypoxia SNOMED Code(s): 858783159 Code(s): R09.02 - HYPOXEMIA Status: Acute Priority: High Current Visit: Yes - Plan Plan:: I have seen and examined the patient independent of nurse practitioner Carlos King and I have discussed the case with her. I have reviewed and agree with the assessment and plan as outlined for this patient by her. Please see orders.
[2020-07-25] MEDS: Azithromycin 500 MG in Sodium Chloride 0.9% 250 ML IV SCH (14:11)
[2020-07-25] MEDS: Simvastatin 20 MG Tab PO SCH (20:56)
[2020-07-26] MEDS: Pantoprazole 40 MG Tab.CR PO SCH (06:20)
[2020-07-26] MEDS: Formoterol/Mometasone 200-5 MCG 13 GM Inhaler INH SCH ×2 (08:08→20:00)
[2020-07-26] MEDS: Glycopyrrolate 15.6 MCG Cap.W.Dev Kit of 6 IH SCH ×2 (08:09→20:00)
[2020-07-26] MEDS: Albuterol 6.7 GM Inhaler INH PRN ×2 (08:09→20:00)
[2020-07-26] MEDS: Fluticasone Propionate Nasal Spray 16 GM Bottle NASBOTH SCH ×2 (08:23→20:18)
[2020-07-26] MEDS: Theophylline 300 MG Tab.ER PO SCH (08:23)
[2020-07-26] MEDS: Dexamethasone 4 MG Tab PO SCH (08:23)
[2020-07-26] MEDS: Enoxaparin 40 MG/0.4 ML Syringe SUBCUT SCH ×2 (08:23→20:17)
[2020-07-26] MEDS: Aspirin 81 MG Tab.EC PO SCH (08:24)
[2020-07-26] MEDS ORDERED: Iopamidol 755 Mg/ML 100 ML Bottle IVPUSH ONE (10:54)
[2020-07-26] MEDS ORDERED: Sodium Chloride 0.9% 10 ML Syringe FLUSH PRN (10:54)
[2020-07-26] MEDS ORDERED: Sodium Chloride 0.9% 100 ML IV SCH (11:00)
[2020-07-26] MEDS ORDERED: Aspirin 81 MG Tab.EC PO ONE (11:00)
[2020-07-26] MEDS: cefTRIAXone 2 GM in Sodium Chloride 0.9% 100 ML IV SCH (12:38)
[2020-07-26] MEDS: Azithromycin 500 MG in Sodium Chloride 0.9% 250 ML IV SCH (14:08)
--- NOTE | 2020-07-26 15:04 | PCM.PN ---
<ChristineCarlos M - Last Filed: 07/26/20 15:05> - General Info Date of Service: 07/26/20 Admission Dx/Problem (Free Text): Admission Diagnosis/Problem Admission Diagnosis/Problem Hypoxia Subjective Update: States he is feeling well today. Denies a cough or shortness of breath. Appetite remains poor. Patient needs a lot of encouragement to get out of bed and to move around in the room. Functional Status: Reports: Pain Controlled, Ambulating (With nursing staff and physical therapy), Urinating, Incentive Spirometry. Denies: Tolerating Diet (Poor appetite) - Review of Systems General: Denies: Appetite (Poor) HEENT: Reports: No Symptoms Pulmonary: Reports: No Symptoms Cardiovascular: Reports: No Symptoms Gastrointestinal: Reports: No Symptoms Genitourinary: Reports: No Symptoms Musculoskeletal: Reports: No Symptoms Skin: Reports: No Symptoms Neurological: Reports: No Symptoms Psychiatric: Reports: No Symptoms - Patient Data Vitals - Most Recent: Last Vital Signs Temp 98.2 F 07/26/20 12:47 Pulse 101 H 07/26/20 12:47 Resp 22 H 07/26/20 12:47 BP 108/70 07/26/20 12:47 Pulse Ox 91 L 07/26/20 13:10 Weight - Most Recent: 82.327 kg I&O - Last 24 Hours: Intake & Output 07/25/20 07/26/20 07/26/20 22:59 06:59 14:59 Intake Total 1500 700 Output Total 500 Balance 1500 200 Lab Results Last 24 Hours: Laboratory Results - last 24 hr 07/26/20 07/26/20 07/26/20 Range/Units 09:30 09:30 09:30 WBC 16.01 H (4.23-9.07) K/mm3 RBC 4.82 (4.63-6.08) M/mm3 Hgb 14.1 D (13.7-17.5) gm/dl Hct 43.4 (40.1-51.0) % MCV 90.0 (79.0-92.2) fl MCH 29.3 (25.7-32.2) pg MCHC 32.5 (32.2-35.5) g/dl RDW Std Deviation 41.5 (35.1-43.9) fL Plt Count 987 H* D (163-337) K/mm3 MPV 9.0 L (9.4-12.3) fl Neut % (Auto) 80.5 H (34.0-67.9) % Lymph % (Auto) 8.6 L (21.8-53.1) % [place] % (Auto) 5.9 (5.3-12.2) % Eos % (Auto) 0.4 L (0.8-7.0) Baso % (Auto) 0.4 (0.1-1.2) % Neut # (Auto) 12.89 H (1.78-5.38) K/mm3 Lymph # (Auto) 1.37 (1.32-3.57) K/mm3 [place] # (Auto) 0.95 H (0.30-0.82) K/mm3 Eos # (Auto) 0.07 (0.04-0.54) K/mm3 Baso # (Auto) 0.06 (0.01-0.08) K/mm3 Manual Slide Review Abnormal smear D-Dimer, Quantitative 2.02 H (0.19-0.50) mg/L Sodium 139 (136-145) mEq/L Potassium 4.0 (3.5-5.1) mEq/L Chloride 99 (98-107) mEq/L Carbon Dioxide 31 (21-32) mEq/L Anion Gap 13.0 (5-15) BUN 29 H (7-18) mg/dL Creatinine 1.0 (0.7-1.3) mg/dL Est Cr Clr Drug Dosing 68.23 mL/min Estimated GFR (MDRD) > 60 (>60) mL/min BUN/Creatinine Ratio 29.0 H (14-18) Glucose 162 H (80-115) mg/dL Calcium 8.9 (8.5-10.1) mg/dL Magnesium 2.0 (1.8-2.4) mg/dl Total Bilirubin 0.7 (0.2-1.0) mg/dL AST 43 H (15-37) U/L ALT 55 (16-63) U/L Alkaline Phosphatase 62 (46-116) U/L C-Reactive Protein 2.1 H* (<1.0) mg/dL Total Protein 6.8 (6.4-8.2) g/dl Albumin 2.4 L (3.4-5.0) g/dl Globulin 4.4 gm/dL Albumin/Globulin Ratio 0.6 L (1-2) [place] Results Last 24 Hours: Microbiology 07/20/20 09:00 Aerobic Blood Culture - Preliminary Blood - Venous - Lab Draw NO GROWTH AFTER 6 DAYS Anaerobic Blood Culture - Preliminary NO GROWTH AFTER 6 DAYS 07/20/20 08:50 Aerobic Blood Culture - Preliminary Blood - Venous NO GROWTH AFTER 6 DAYS Anaerobic Blood Culture - Preliminary NO GROWTH AFTER 6 DAYS Med Orders - Current: Current Medications Acetaminophen (Tylenol) 650 mg PO Q4H PRN PRN Reason: Pain (Mild 1-3)/fever Albuterol (Proventil Neb Soln) 2.5 mg NEB Q2H PRN PRN Reason: Shortness Of Breath/wheezing Albuterol (Proventil Hfa) 0 gm INH Q4H PRN PRN Reason: Wheezing Last Admin: 07/26/20 08:09 Dose: 2 puff Documented by: Aspirin (Ecotrin) 325 mg PO DAILY [facility] Dexamethasone (Dexamethasone) 6 mg PO DAILY [facility] Stop: 07/29/20 09:01 Last Admin: 07/26/20 08:23 Dose: 6 mg Documented by: Enoxaparin Sodium (Lovenox) 40 mg SUBCUT Q12H [facility] Last Admin: 07/26/20 08:23 Dose: 40 mg Documented by: Fluticasone Propionate (Flonase) 0 gm NASBOTH BID [facility] Last Admin: 07/26/20 08:23 Dose: 1 spray Documented by: Glycopyrrolate (Seebri Neohaler) 15.6 mcg IH BID [facility] Last Admin: 07/26/20 08:09 Dose: 1 cap.ec Documented by: Ceftriaxone Sodium 2 gm/ (Sodium Chloride) 100 mls @ 200 mls/hr IV Q24H [facility] Stop: 07/28/20 11:29 Last Admin: 07/26/20 12:38 Dose: 200 mls/hr Documented by: Mometasone Furoate/Formoterol Fumar (Dulera 200-5 Mcg) 0 puff INH BID [facility] Last Admin: 07/26/20 08:08 Dose: 2 puff Documented by: Ondansetron HCl (Zofran) 4 mg IV Q6H PRN PRN Reason: Nausea/Vomiting Last Admin: 07/23/20 00:35 Dose: 4 mg Documented by: Pantoprazole Sodium (Protonix) 40 mg PO DAILY@0700 [facility] Last Admin: 07/26/20 06:20 Dose: 40 mg Documented by: Simvastatin (Zocor) 20 mg PO BEDTIME [facility] Last Admin: 07/25/20 20:56 Dose: 20 mg Documented by: Sodium Chloride (Saline Flush) 10 ml FLUSH ASDIRECTED PRN PRN Reason: Keep Vein Open Last Admin: 07/20/20 08:50 Dose: 10 ml Documented by: Theophylline (Theophylline Anhydrous) 600 mg PO DAILY [facility] Last Admin: 07/26/20 08:23 Dose: 600 mg Documented by: Discontinued Medications Aspirin (Halfprin) 81 mg PO DAILY [facility] Last Admin: 07/26/20 08:24 Dose: 81 mg Documented by: Aspirin (Halfprin) 243 mg PO ONETIME ONE Stop: 07/26/20 11:01 Last Admin: 07/26/20 12:37 Dose: 243 mg Documented by: Enoxaparin Sodium (Lovenox) 40 mg SUBCUT Q12H [facility] Last Admin: 07/24/20 00:10 Dose: 40 mg Documented by: Potassium Chloride 10 meq/ (Premix) 100 mls @ 100 mls/hr IV Q1H [facility] Stop: 07/20/20 13:59 Last Admin: 07/20/20 15:20 Dose: 100 mls/hr Documented by: Sodium Chloride (Normal Saline) 1,000 mls @ 150 mls/hr IV ASDIRECTED [facility] Last Admin: 07/20/20 10:17 Dose: 150 mls/hr Documented by: Remdesivir 200 mg/ Sodium (Chloride) 250 mls @ 250 mls/hr IV ONETIME ONE Stop: 07/20/20 13:29 Last Admin: 07/20/20 13:00 Dose: 250 mls/hr Documented by: Remdesivir 100 mg/ Sodium (Chloride) 100 mls @ 100 mls/hr IV Q24H [facility] Stop: 07/24/20 13:29 Last Admin: 07/24/20 12:33 Dose: 100 mls/hr Documented by: Sodium Chloride (Normal Saline) 250 mls @ 125 mls/hr IV ASDIRECTED [facility] Stop: 07/20/20 23:00 Last Admin: 07/20/20 15:26 Dose: 125 mls/hr Documented by: Potassium Chloride/Sodium Chloride (Normal Saline With 40 Meq Kcl) 500 mls @ 50 mls/hr IV ASDIRECTED [facility] Potassium Chloride 10 meq/ (Premix) 100 mls @ 100 mls/hr IV Q1H [facility] Stop: 07/21/20 14:29 Last Admin: 07/21/20 15:58 Dose: 100 mls/hr Documented by: Azithromycin 500 mg/ Sodium (Chloride) 250 mls @ 250 mls/hr IV Q24H [facility] Stop: 07/26/20 14:29 Last Admin: 07/26/20 14:08 Dose: 250 mls/hr Documented by: Sodium Chloride (Normal Saline) 100 mls @ 75 mls/hr IV ASDIRECTED [facility] Stop: 07/26/20 13:00 Iopamidol (Isovue-370 (76%)) 100 ml IVPUSH ONETIME ONE Stop: 07/26/20 10:55 Last Admin: 07/26/20 11:43 Dose: Not Given Documented by: Potassium Chloride (Klor-Con M20) 40 meq PO ONETIME ONE Stop: 07/20/20 21:01 Last Admin: 07/20/20 21:06 Dose: 40 meq Documented by: Sodium Chloride (Saline Flush) 10 ml FLUSH ONETIME PRN PRN Reason: IV FLUSH Stop: 07/26/20 13:00 - Exam Quality Assessment: Supplemental Oxygen (High flow O2), DVT Prophylaxis (Lovenox) General: Alert, Oriented, Cooperative, Mild Distress HEENT: Pupils Equal, Pupils Reactive, EOMI, Mucous Membr. Moist/[place] Neck: Supple, Trachea Midline. No: Lymphadenopathy Lungs: Decreased Breath Sounds, Crackles (Bilaterally). No: Wheezing Cardiovascular: Regular Rate, Regular Rhythm, No Murmurs GI/Abdominal Exam: Normal Bowel Sounds, Soft, Non-Tender, No Distention (Male) Exam: Deferred Back Exam: Normal Inspection, Full Range of Motion Extremities: Normal Inspection, Normal Range of Motion, Non-Tender, No Pedal Edema, Normal Capillary Refill Peripheral Pulses: 2+: Radial (L), Radial (R), Dorsalis Pedis (L), Dorsalis Pedis (R) Skin: Warm, Dry, Intact Neurological: No New Focal Deficit Psy/Mental Status: Alert, Normal Affect, Normal Mood Sepsis Event Note - Evaluation Sepsis Screening Result: No Definite Risk - Focused Exam Vital Signs: Vital Signs Temp Pulse Resp BP Pulse Ox Pulse Ox 07/26/20 13:10 91 L 07/26/20 12:47 98.2 F 101 H 22 H 108/70 91 L 07/26/20 12:00 91 L 07/26/20 10:49 90 L 07/26/20 08:29 97.7 F 86 16 121/74 89 L 07/26/20 08:09 91 L 07/26/20 05:59 92 L 07/26/20 03:08 98.1 F 83 20 102/60 95 - Problem List & Annotations (1) COVID-19 SNOMED Code(s): 523268314 Code(s): U07.1 - COVID-19 Status: Acute Priority: High Current Visit: Yes (2) Hypokalemia SNOMED Code(s): 19039263 Code(s): E87.6 - HYPOKALEMIA Status: Acute Priority: High Current Visit: Yes (3) Hypoxia SNOMED Code(s): 822680231 Code(s): R09.02 - HYPOXEMIA Status: Acute Priority: High Current Visit: Yes (4) Pneumonia due to COVID-19 virus SNOMED Code(s): 878108053574664147 Code(s): U07.1 - COVID-19; J12.89 - OTHER VIRAL PNEUMONIA Status: Acute Priority: High Current Visit: Yes (5) Renal insufficiency SNOMED Code(s): 570780129, 727081741 Code(s): N28.9 - DISORDER OF KIDNEY AND URETER, UNSPECIFIED Status: Acute Priority: High Current Visit: Yes - Problem List Review Problem List Initiated/Reviewed/Updated: Yes - My Orders Last 24 Hours: My Active Orders 07/26/20 10:49 Chest PE [Ang Chest] [CT] Routine 07/27/20 09:00 Aspirin [Ecotrin] 325 mg PO DAILY - Assessment Assessment:: I have seen and examined the patient independent of nurse practitioner Carlos King and I have discussed the case with her. I have reviewed and agree with the assessment and plan as outlined for this patient by her. Please see orders. 07/20/10 * 1 week history of weakness, general malaise, poor appetite, shortness of breath and diarrhea * History of exposure to COVID-19 * History of COPD * Chest x-ray shows lung choe show prominence to the pulmonary interstitium. Minimal groundglass airspace disease at the lower lung choe bilaterally. * The patient did receive 40 mEq of potassium IV in the ER. Lab results: * Platelet count 411 * Potassium 2.5 * Anion gap 19.5 * BUN 37 * Creatinine 1.6 * GFR 44 * Glucose 132 * LDH 516 * Troponin 0 0.066 * C-reactive protein 26.0 * Lactic acid 1.8 * Ferritin 1692 * BNP 261 * D-dimer 1.01 Arterial blood gases: * pH 7.51 * PCO2 29.5 * PO2 62.0 * HCO3 23.0 * Currently on 5 L per nasal cannula Vital signs: * Temperature 100.7 * Pulse 118 * Respiratory rate 36 * Blood pressure 149/86 * Pulse ox 75% on room air; 90% on 5 L per nasal cannula Plan: * Start remdesivir. The risks and benefits were discussed with the patient. I offered him the patient and caregiver EUA remdesivir fact sheet to read and review. I stated the drug has been approved by an emergency use authorization process and has not fully been FDA reviewed or approved. The patient meets the EUA requirements. I shared that the drug may cause liver abnormalities and infusion related side effects. Additionally, other side effects are possible but not shown as the drug has had limited studies. I discussed there are other potential treatment options that are not currently FDA approved to treat COVID-19. Offered opportunity to ask questions and all questions were answered. The patient voiced understanding and agreed to proceed with the treatment for himself. * Start dexamethasone * Give 2 units of convalescent plasma. Consent was obtained prior. I spoke with him to provide information about convalescent plasma for himself. I offered him the fax sheet for patients and parents/caregivers for COVID-19 convalescent plasma to read and review. I stated the therapy has been approved by an emergency youth authorization process and has not fully been FDA reviewed or approved. I shared potential risks from the therapy including transmission of blood-borne pathogens such as HIV and hepatitis C, allergic and transfusion related reactions, post transfusion purpura. Additionally theoretical risks including a phenomenon called antibody dependent enhancement of infection such as is seen in dengue or attenuation of an immune response that may make patients more susceptible to reinfection. I discussed there are other potential treatment options that are currently not FDA approved to treat COVID-19. Offered opportunity to ask questions and all questions were answered. The patient voiced understanding and agreed to proceed with the treatment for himself. * Incentive spirometry * RT to titrate oxygen * PRN albuterol * Monitor for hypoxemia * Monitor lab work and replace electrolytes as needed * Renally dose medications * Continue home statin * Dietary consult * building services coordinator and discharge planning consult * Theophylline level * Repeat troponin 07/21/2020 The patient is a 64-year-old gentleman who was still short of breath today. He is currently on dexamethasone and this will continue. He has also had convalescent plasma. The patient will be kept at least enough to finish 5 days of remdesivir. Patient also had been hypokalemic and laboratory testing has been ordered and the patient will have electrolytes replaced as necessary. Continue with diet as tolerated. Encouraged to ambulate. 07/22/2020 The patient is a 64-year-old gentleman who has been tolerating the COVID-19 treatment well. The patient will be kept long enough to finish at least 5 days of remdesivir. I have advised the patient that he will need to go home with dexamethasone or equivalent. The patient's hypokalemia has resolved. I have ordered repeat laboratory studies for the morning to check the patient's electrolytes. He has been encouraged to continue with his current diet. I have encouraged the patient also to ambulate. 07/23/20 The patient is on day 4 of remdesivir and dexamethasone. Continues on high flow O2 with respiratory therapy attempting to titrate down. He on 60 L at 75% FiO2. Appetite remains poor he is however receiving protein supplements. He has been doing his incentive spirometer up to 1500. I encouraged him to be up in the chair 3 times daily with all meals and to start prone positioning. Will recheck lab work in the a.m. 07/24/20 Patient is on day 5 of remdesivir and dexamethasone. He does continue on high flow O2 at 60 L and 70%. Respiratory care continues to attempt to wean patient off of oxygen. Appetite remains poor encouraging patient to attempt to eat and consume 100% of protein supplements. Continues to use his incentive spirometer. Needs a lot of encouragement to get out of bed for meals. Did sleep in the prone position for a few hours last night. Vital signs remained stable and he has not had a fever in the past 24 hours. Nursing staff reports that patient is very weak when attempting to get out of bed. WBC 14.41 from 10.02 Platelet 795 from 6.25 D-dimer 0.95 from 0.77 Potassium 4.0 from 3.5 BUN 33 from 35 Creatinine 1.0 GFR greater than 60 C-reactive protein 4.9 from 7.7 Awaiting procalcitonin level Portable chest x-ray was obtained findings interval resolution of bibasilar opacities. Prominent interstitial changes in the right and left midlung/perihilar regions. No consolidation. 07/25/20 Continues to be on high flow O2, however respiratory care is titrating this down. He is on day 6 of dexamethasone. He is on day 3 of Zithromax and Rocephin. Appetite is still poor encouraging to eat and consume protein supplements and increase fluid intake. Has been using his incentive spirometer. Has been sleeping in the prone position and from side to side intermittently. Vital signs remained stable. WBC 12.45 Platelets 733 D-dimer 1.26 BUN 32 Creatinine 0.9 GFR greater than 60 C-reactive protein 2.7 Procalcitonin 0.46 07/26/20 Patient is on day 3 of Rocephin and Zithromax. He is on day 7 of dexamethasone. Continues to be on high flow O2. Appetite is poor consuming 100% of protein supplements sent from dietary. He has been using his incentive spirometer. Vital signs remained stable. He does need a lot of very strong encouragement to get out of bed, to work with physical therapy, and complete basic ADLs. WBC 16.01 up from 12.45 Platelet count 987 up from 733 D-dimer 2.02 up from 1.26 BUN 29 down from 32 Creatinine 1.0 up from 0.9 GFR greater than 60 Magnesium 2.0 C-reactive protein 2.1 down from 2.7 - Plan Plan:: 07/25/20 Continue dexamethasone for a total of 10 days. Continue to attempt to titrate oxygen down. Monitor for hypoxia. Incentive spirometer. Continue with Lovenox for DVT prophylaxis. Continue Zithromax and Rocephin. PT and OT to consult regarding strengthening. Recheck lab work in the a.m. Plan for discharge once the patient's oxygen can be titrated down to go home safely. 07/26/20 Continue p.o. dexamethasone. RT to continue titrating O2 Encourage incentive spirometer Encourage prone positioning Monitor for hypoxia Continue with Lovenox for DVT prophylaxis Continue Zithromax and Rocephin PT and OT to continue working with the patient for strengthening Patient for was sent for a CT scan of his chest due to high platelet count elevated white count elevated D-dimer CT of chest showed no evidence of acute PE, nonspecific chronic interstitial lung disease with possible superimposed consolidation in the right lower lobe, hiatal hernia. At this time we will start aspirin [address] Mortensen's recommendations. We will continue to monitor lab work. Specifically following WBCs, platelets, and D-dimer. <Aristeo Mortensen - Last Filed: 07/26/20 18:02> - Patient Data Vitals - Most Recent: Last Vital Signs Temp 36.4 C 07/26/20 16:05 Pulse 100 07/26/20 16:05 Resp 20 07/26/20 16:05 BP 122/82 07/26/20 16:05 Pulse Ox 90 L 07/26/20 16:58 I&O - Last 24 Hours: Intake & Output 07/26/20 07/26/20 07/26/20 06:59 14:59 22:59 Intake Total 371 633 4472 Output Total 500 450 Balance 523 256 5027 Lab Results Last 24 Hours: Laboratory Results - last 24 hr 07/26/20 07/26/20 07/26/20 Range/Units 09:30 09:30 09:30 WBC 16.01 H (4.23-9.07) K/mm3 RBC 4.82 (4.63-6.08) M/mm3 Hgb 14.1 D (13.7-17.5) gm/dl Hct 43.4 (40.1-51.0) % MCV 90.0 (79.0-92.2) fl MCH 29.3 (25.7-32.2) pg MCHC 32.5 (32.2-35.5) g/dl RDW Std Deviation 41.5 (35.1-43.9) fL Plt Count 987 H* D (163-337) K/mm3 MPV 9.0 L (9.4-12.3) fl Neut % (Auto) 80.5 H (34.0-67.9) % Lymph % (Auto) 8.6 L (21.8-53.1) % [place] % (Auto) 5.9 (5.3-12.2) % Eos % (Auto) 0.4 L (0.8-7.0) Baso % (Auto) 0.4 (0.1-1.2) % Neut # (Auto) 12.89 H (1.78-5.38) K/mm3 Lymph # (Auto) 1.37 (1.32-3.57) K/mm3 [place] # (Auto) 0.95 H (0.30-0.82) K/mm3 Eos # (Auto) 0.07 (0.04-0.54) K/mm3 Baso # (Auto) 0.06 (0.01-0.08) K/mm3 Manual Slide Review Abnormal smear D-Dimer, Quantitative 2.02 H (0.19-0.50) mg/L Sodium 139 (136-145) mEq/L Potassium 4.0 (3.5-5.1) mEq/L Chloride 99 (98-107) mEq/L Carbon Dioxide 31 (21-32) mEq/L Anion Gap 13.0 (5-15) BUN 29 H (7-18) mg/dL Creatinine 1.0 (0.7-1.3) mg/dL Est Cr Clr Drug Dosing 68.23 mL/min Estimated GFR (MDRD) > 60 (>60) mL/min BUN/Creatinine Ratio 29.0 H (14-18) Glucose 162 H (80-115) mg/dL Calcium 8.9 (8.5-10.1) mg/dL Magnesium 2.0 (1.8-2.4) mg/dl Total Bilirubin 0.7 (0.2-1.0) mg/dL AST 43 H (15-37) U/L ALT 55 (16-63) U/L Alkaline Phosphatase 62 (46-116) U/L C-Reactive Protein 2.1 H* (<1.0) mg/dL Total Protein 6.8 (6.4-8.2) g/dl Albumin 2.4 L (3.4-5.0) g/dl Globulin 4.4 gm/dL Albumin/Globulin Ratio 0.6 L (1-2) [place] Results Last 24 Hours: Microbiology 07/20/20 09:00 Aerobic Blood Culture - Preliminary Blood - Venous - Lab Draw NO GROWTH AFTER 6 DAYS Anaerobic Blood Culture - Preliminary NO GROWTH AFTER 6 DAYS 07/20/20 08:50 Aerobic Blood Culture - Preliminary Blood - Venous NO GROWTH AFTER 6 DAYS Anaerobic Blood Culture - Preliminary NO GROWTH AFTER 6 DAYS Med Orders - Current: Current Medications Acetaminophen (Tylenol) 650 mg PO Q4H PRN PRN Reason: Pain (Mild 1-3)/fever Albuterol (Proventil Neb Soln) 2.5 mg NEB Q2H PRN PRN Reason: Shortness Of Breath/wheezing Albuterol (Proventil Hfa) 0 gm INH Q4H PRN PRN Reason: Wheezing Last Admin: 07/26/20 08:09 Dose: 2 puff Documented by: Aspirin (Ecotrin) 325 mg PO DAILY [facility] Dexamethasone (Dexamethasone) 6 mg PO DAILY [facility] Stop: 07/29/20 09:01 Last Admin: 07/26/20 08:23 Dose: 6 mg Documented by: Enoxaparin Sodium (Lovenox) 40 mg SUBCUT Q12H [facility] Last Admin: 07/26/20 08:23 Dose: 40 mg Documented by: Fluticasone Propionate (Flonase) 0 gm NASBOTH BID [facility] Last Admin: 07/26/20 08:23 Dose: 1 spray Documented by: Glycopyrrolate (Seebri Neohaler) 15.6 mcg IH BID [facility] Last Admin: 07/26/20 08:09 Dose: 1 cap.ec Documented by: Ceftriaxone Sodium 2 gm/ (Sodium Chloride) 100 mls @ 200 mls/hr IV Q24H [facility] Stop: 07/28/20 11:29 Last Admin: 07/26/20 12:38 Dose: 200 mls/hr Documented by: Mometasone Furoate/Formoterol Fumar (Dulera 200-5 Mcg) 0 puff INH BID [facility] Last Admin: 07/26/20 08:08 Dose: 2 puff Documented by: Ondansetron HCl (Zofran) 4 mg IV Q6H PRN PRN Reason: Nausea/Vomiting Last Admin: 07/23/20 00:35 Dose: 4 mg Documented by: Pantoprazole Sodium (Protonix) 40 mg PO DAILY@0700 [facility] Last Admin: 07/26/20 06:20 Dose: 40 mg Documented by: Simvastatin (Zocor) 20 mg PO BEDTIME [facility] Last Admin: 07/25/20 20:56 Dose: 20 mg Documented by: Sodium Chloride (Saline Flush) 10 ml FLUSH ASDIRECTED PRN PRN Reason: Keep Vein Open Last Admin: 07/20/20 08:50 Dose: 10 ml Documented by: Theophylline (Theophylline Anhydrous) 600 mg PO DAILY [facility] Last Admin: 07/26/20 08:23 Dose: 600 mg Documented by: Discontinued Medications Aspirin (Halfprin) 81 mg PO DAILY [facility] Last Admin: 07/26/20 08:24 Dose: 81 mg Documented by: Aspirin (Halfprin) 243 mg PO ONETIME ONE Stop: 07/26/20 11:01 Last Admin: 07/26/20 12:37 Dose: 243 mg Documented by: Enoxaparin Sodium (Lovenox) 40 mg SUBCUT Q12H [facility] Last Admin: 07/24/20 00:10 Dose: 40 mg Documented by: Potassium Chloride 10 meq/ (Premix) 100 mls @ 100 mls/hr IV Q1H [facility] Stop: 07/20/20 13:59 Last Admin: 07/20/20 15:20 Dose: 100 mls/hr Documented by: Sodium Chloride (Normal Saline) 1,000 mls @ 150 mls/hr IV ASDIRECTED [facility] Last Admin: 07/20/20 10:17 Dose: 150 mls/hr Documented by: Remdesivir 200 mg/ Sodium (Chloride) 250 mls @ 250 mls/hr IV ONETIME ONE Stop: 07/20/20 13:29 Last Admin: 07/20/20 13:00 Dose: 250 mls/hr Documented by: Remdesivir 100 mg/ Sodium (Chloride) 100 mls @ 100 mls/hr IV Q24H [facility] Stop: 07/24/20 13:29 Last Admin: 07/24/20 12:33 Dose: 100 mls/hr Documented by: Sodium Chloride (Normal Saline) 250 mls @ 125 mls/hr IV ASDIRECTED [facility] Stop: 07/20/20 23:00 Last Admin: 07/20/20 15:26 Dose: 125 mls/hr Documented by: Potassium Chloride/Sodium Chloride (Normal Saline With 40 Meq Kcl) 500 mls @ 50 mls/hr IV ASDIRECTED [facility] Potassium Chloride 10 meq/ (Premix) 100 mls @ 100 mls/hr IV Q1H [facility] Stop: 07/21/20 14:29 Last Admin: 07/21/20 15:58 Dose: 100 mls/hr Documented by: Azithromycin 500 mg/ Sodium (Chloride) 250 mls @ 250 mls/hr IV Q24H [facility] Stop: 07/26/20 14:29 Last Admin: 07/26/20 14:08 Dose: 250 mls/hr Documented by: Sodium Chloride (Normal Saline) 100 mls @ 75 mls/hr IV ASDIRECTED [facility] Stop: 07/26/20 13:00 Iopamidol (Isovue-370 (76%)) 100 ml IVPUSH ONETIME ONE Stop: 07/26/20 10:55 Last Admin: 07/26/20 11:43 Dose: Not Given Documented by: Potassium Chloride (Klor-Con M20) 40 meq PO ONETIME ONE Stop: 07/20/20 21:01 Last Admin: 07/20/20 21:06 Dose: 40 meq Documented by: Sodium Chloride (Saline Flush) 10 ml FLUSH ONETIME PRN PRN Reason: IV FLUSH Stop: 07/26/20 13:00 Sepsis Event Note - Focused Exam Vital Signs: Vital Signs Temp Pulse Resp BP Pulse Ox Pulse Ox 07/26/20 16:58 90 L 07/26/20 16:05 36.4 C 100 20 122/82 94 L 07/26/20 13:10 91 L 07/26/20 12:47 36.8 C 101 H 22 H 108/70 91 L 07/26/20 12:00 91 L 07/26/20 10:49 90 L 07/26/20 08:29 36.5 C 86 16 121/74 89 L 07/26/20 08:09 91 L - Problem List & Annotations (1) Pneumonia due to COVID-19 virus SNOMED Code(s): 877378109956753289 Code(s): U07.1 - COVID-19; J12.89 - OTHER VIRAL PNEUMONIA Status: Acute Priority: High Current Visit: Yes (2) Hypokalemia SNOMED Code(s): 09138564 Code(s): E87.6 - HYPOKALEMIA Status: Acute Priority: High Current Visit: Yes (3) Hypoxia SNOMED Code(s): 309220815 Code(s): R09.02 - HYPOXEMIA Status: Acute Priority: High Current Visit: Yes - Plan Plan:: I have seen and examined the patient independent of nurse practitioner Carlos King and I have discussed the case with her. I have reviewed and agree with the assessment and plan as outlined for this patient by her. Please see orders.
[2020-07-26] MEDS: Simvastatin 20 MG Tab PO SCH (20:16)
[2020-07-27] MEDS: Pantoprazole 40 MG Tab.CR PO SCH (06:38)
[2020-07-27] MEDS ORDERED: Potassium Chloride 20 MEQ Tab.ER PO ONE ×2 (07:55→09:15)
[2020-07-27] MEDS: Albuterol 6.7 GM Inhaler INH PRN ×2 (08:05→20:00)
[2020-07-27] MEDS: Glycopyrrolate 15.6 MCG Cap.W.Dev Kit of 6 IH SCH ×2 (08:05→20:00)
[2020-07-27] MEDS: Formoterol/Mometasone 200-5 MCG 13 GM Inhaler INH SCH ×2 (08:06→19:59)
[2020-07-27] MEDS: Aspirin 325 MG Tab.EC PO SCH (08:31)
[2020-07-27] MEDS: Dexamethasone 4 MG Tab PO SCH (08:31)
[2020-07-27] MEDS: Enoxaparin 40 MG/0.4 ML Syringe SUBCUT SCH ×2 (08:31→21:00)
[2020-07-27] MEDS: Fluticasone Propionate Nasal Spray 16 GM Bottle NASBOTH SCH ×2 (09:30→21:03)
[2020-07-27] MEDS: Theophylline 300 MG Tab.ER PO SCH ×2 (09:30→14:42)
[2020-07-27] MEDS: cefTRIAXone 2 GM in Sodium Chloride 0.9% 100 ML IV SCH (11:39)
--- NOTE | 2020-07-27 12:54 | PCM.PN ---
<Carlos King M - Last Filed: 07/27/20 12:55> - General Info Date of Service: 07/27/20 Admission Dx/Problem (Free Text): Admission Diagnosis/Problem Admission Diagnosis/Problem Hypoxia Subjective Update: Patient appears less depressed today. Still has a poor appetite only eating apples and protein supplements. Continues to need strong encouragement to get up and move about in the room and to work with therapies. Continues on high fl ow O2. Functional Status: Reports: Pain Controlled, Ambulating (With nursing and physical therapy), Urinating, Incentive Spirometry. Denies: Tolerating Diet (Appetite remains poor) - Review of Systems General: Denies: Appetite (Poor) HEENT: Reports: Glasses Pulmonary: Reports: Shortness of Breath, Cough. Denies: Sputum (Scant), Wheezing Cardiovascular: Reports: Dyspnea on Exertion Gastrointestinal: Reports: Decreased Appetite. Denies: Diarrhea, Nausea, Vomiting Genitourinary: Reports: No Symptoms Musculoskeletal: Reports: No Symptoms Skin: Reports: No Symptoms Neurological: Reports: No Symptoms Psychiatric: Reports: No Symptoms - Patient Data Vitals - Most Recent: Last Vital Signs Temp 97.5 F 07/27/20 08:39 Pulse 92 07/27/20 08:39 Resp 24 H 07/27/20 08:39 BP 133/79 07/27/20 08:39 Pulse Ox 90 L 07/27/20 10:46 Weight - Most Recent: 82.554 kg I&O - Last 24 Hours: Intake & Output 07/26/20 07/27/20 07/27/20 22:59 06:59 14:59 Intake Total 1890 800 Output Total 450 900 Balance 1440 -100 Lab Results Last 24 Hours: Laboratory Results - last 24 hr 07/27/20 07/27/20 07/27/20 Range/Units 04:25 04:25 04:25 WBC 12.36 H (4.23-9.07) K/mm3 RBC 3.88 L (4.63-6.08) M/mm3 Hgb 11.4 L D (13.7-17.5) gm/dl Hct 35.1 L (40.1-51.0) % MCV 90.5 (79.0-92.2) fl MCH 29.4 (25.7-32.2) pg MCHC 32.5 (32.2-35.5) g/dl RDW Std Deviation 40.7 (35.1-43.9) fL Plt Count 783 H D (163-337) K/mm3 MPV 9.1 L (9.4-12.3) fl Neut % (Auto) 75.8 H (34.0-67.9) % Lymph % (Auto) 11.5 L (21.8-53.1) % [place] % (Auto) 8.4 (5.3-12.2) % Eos % (Auto) 0.3 L (0.8-7.0) Baso % (Auto) 0.2 (0.1-1.2) % Neut # (Auto) 9.36 H (1.78-5.38) K/mm3 Lymph # (Auto) 1.42 (1.32-3.57) K/mm3 [place] # (Auto) 1.04 H (0.30-0.82) K/mm3 Eos # (Auto) 0.04 (0.04-0.54) K/mm3 Baso # (Auto) 0.03 (0.01-0.08) K/mm3 Manual Slide Review Abnormal smear D-Dimer, Quantitative 1.43 H (0.19-0.50) mg/L Sodium 138 (136-145) mEq/L Potassium 3.6 (3.5-5.1) mEq/L Chloride 101 (98-107) mEq/L Carbon Dioxide 32 (21-32) mEq/L Anion Gap 8.6 (5-15) BUN 23 H (7-18) mg/dL Creatinine 0.8 (0.7-1.3) mg/dL Est Cr Clr Drug Dosing 85.29 mL/min Estimated GFR (MDRD) > 60 (>60) mL/min BUN/Creatinine Ratio 28.8 H (14-18) Glucose 99 (80-115) mg/dL Calcium 8.2 L (8.5-10.1) mg/dL Magnesium 2.0 (1.8-2.4) mg/dl Total Bilirubin 0.4 (0.2-1.0) mg/dL AST 37 (15-37) U/L ALT 47 (16-63) U/L Alkaline Phosphatase 47 (46-116) U/L C-Reactive Protein 2.1 H* (<1.0) mg/dL Total Protein 5.7 L (6.4-8.2) g/dl Albumin 2.0 L (3.4-5.0) g/dl Globulin 3.7 gm/dL Albumin/Globulin Ratio 0.5 L (1-2) [place] Results Last 24 Hours: Microbiology 07/20/20 09:00 Aerobic Blood Culture - Final Blood - Venous - Lab Draw NO GROWTH AFTER 7 DAYS Anaerobic Blood Culture - Final NO GROWTH AFTER 7 DAYS 07/20/20 08:50 Aerobic Blood Culture - Final Blood - Venous NO GROWTH AFTER 7 DAYS Anaerobic Blood Culture - Final NO GROWTH AFTER 7 DAYS Med Orders - Current: Current Medications Acetaminophen (Tylenol) 650 mg PO Q4H PRN PRN Reason: Pain (Mild 1-3)/fever Albuterol (Proventil Neb Soln) 2.5 mg NEB Q2H PRN PRN Reason: Shortness Of Breath/wheezing Albuterol (Proventil Hfa) 0 gm INH Q4H PRN PRN Reason: Wheezing Last Admin: 07/27/20 08:05 Dose: 2 puff Documented by: Aspirin (Ecotrin) 325 mg PO DAILY [facility] Last Admin: 07/27/20 08:31 Dose: 325 mg Documented by: Dexamethasone (Dexamethasone) 6 mg PO DAILY [facility] Stop: 07/29/20 09:01 Last Admin: 07/27/20 08:31 Dose: 6 mg Documented by: Enoxaparin Sodium (Lovenox) 40 mg SUBCUT Q12H [facility] Last Admin: 07/27/20 08:31 Dose: 40 mg Documented by: Fluticasone Propionate (Flonase) 0 gm NASBOTH BID [facility] Last Admin: 07/27/20 09:30 Dose: 1 spray Documented by: Glycopyrrolate (Seebri Neohaler) 15.6 mcg IH BID [facility] Last Admin: 07/27/20 08:05 Dose: 1 cap.ec Documented by: Ceftriaxone Sodium 2 gm/ (Sodium Chloride) 100 mls @ 200 mls/hr IV Q24H [facility] Stop: 07/28/20 11:29 Last Admin: 07/27/20 11:39 Dose: 200 mls/hr Documented by: Mometasone Furoate/Formoterol Fumar (Dulera 200-5 Mcg) 0 puff INH BID [facility] Last Admin: 07/27/20 08:06 Dose: 2 puff Documented by: Ondansetron HCl (Zofran) 4 mg IV Q6H PRN PRN Reason: Nausea/Vomiting Last Admin: 07/23/20 00:35 Dose: 4 mg Documented by: Pantoprazole Sodium (Protonix) 40 mg PO DAILY@0700 [facility] Last Admin: 07/27/20 06:38 Dose: 40 mg Documented by: Simvastatin (Zocor) 20 mg PO BEDTIME [facility] Last Admin: 07/26/20 20:16 Dose: 20 mg Documented by: Sodium Chloride (Saline Flush) 10 ml FLUSH ASDIRECTED PRN PRN Reason: Keep Vein Open Last Admin: 07/20/20 08:50 Dose: 10 ml Documented by: Theophylline (Theophylline Anhydrous) 600 mg PO DAILY [facility] Last Admin: 07/27/20 09:30 Dose: 600 mg Documented by: Theophylline (Theophylline Anhydrous) 300 mg PO DAILY [facility] Discontinued Medications Aspirin (Halfprin) 81 mg PO DAILY [facility] Last Admin: 07/26/20 08:24 Dose: 81 mg Documented by: Aspirin (Halfprin) 243 mg PO ONETIME ONE Stop: 07/26/20 11:01 Last Admin: 07/26/20 12:37 Dose: 243 mg Documented by: Enoxaparin Sodium (Lovenox) 40 mg SUBCUT Q12H [facility] Last Admin: 07/24/20 00:10 Dose: 40 mg Documented by: Potassium Chloride 10 meq/ (Premix) 100 mls @ 100 mls/hr IV Q1H [facility] Stop: 07/20/20 13:59 Last Admin: 07/20/20 15:20 Dose: 100 mls/hr Documented by: Sodium Chloride (Normal Saline) 1,000 mls @ 150 mls/hr IV ASDIRECTED [facility] Last Admin: 07/20/20 10:17 Dose: 150 mls/hr Documented by: Remdesivir 200 mg/ Sodium (Chloride) 250 mls @ 250 mls/hr IV ONETIME ONE Stop: 07/20/20 13:29 Last Admin: 07/20/20 13:00 Dose: 250 mls/hr Documented by: Remdesivir 100 mg/ Sodium (Chloride) 100 mls @ 100 mls/hr IV Q24H [facility] Stop: 07/24/20 13:29 Last Admin: 07/24/20 12:33 Dose: 100 mls/hr Documented by: Sodium Chloride (Normal Saline) 250 mls @ 125 mls/hr IV ASDIRECTED [facility] Stop: 07/20/20 23:00 Last Admin: 07/20/20 15:26 Dose: 125 mls/hr Documented by: Potassium Chloride/Sodium Chloride (Normal Saline With 40 Meq Kcl) 500 mls @ 50 mls/hr IV ASDIRECTED [facility] Potassium Chloride 10 meq/ (Premix) 100 mls @ 100 mls/hr IV Q1H [facility] Stop: 07/21/20 14:29 Last Admin: 07/21/20 15:58 Dose: 100 mls/hr Documented by: Azithromycin 500 mg/ Sodium (Chloride) 250 mls @ 250 mls/hr IV Q24H [facility] Stop: 07/26/20 14:29 Last Admin: 07/26/20 14:08 Dose: 250 mls/hr Documented by: Sodium Chloride (Normal Saline) 100 mls @ 75 mls/hr IV ASDIRECTED [facility] Stop: 07/26/20 13:00 Iopamidol (Isovue-370 (76%)) 100 ml IVPUSH ONETIME ONE Stop: 07/26/20 10:55 Last Admin: 07/26/20 11:43 Dose: Not Given Documented by: Potassium Chloride (Klor-Con M20) 40 meq PO ONETIME ONE Stop: 07/20/20 21:01 Last Admin: 07/20/20 21:06 Dose: 40 meq Documented by: Potassium Chloride (Klor-Con M20) 40 meq PO ONETIME ONE Stop: 07/27/20 07:56 Last Admin: 07/27/20 09:30 Dose: 40 meq Documented by: Potassium Chloride (Klor-Con M20) 20 meq PO ONETIME ONE Stop: 07/27/20 09:16 Last Admin: 07/27/20 09:31 Dose: Not Given Documented by: Sodium Chloride (Saline Flush) 10 ml FLUSH ONETIME PRN PRN Reason: IV FLUSH Stop: 07/26/20 13:00 - Exam Quality Assessment: Supplemental Oxygen (High flow O2), DVT Prophylaxis (Lovenox) General: Alert, Oriented, Cooperative, Mild Distress HEENT: Pupils Equal, Pupils Reactive, Mucous Membr. Moist/[place] Neck: Supple, Trachea Midline. No: Lymphadenopathy Lungs: Crackles (Bilateral bases) Cardiovascular: Regular Rate, Regular Rhythm, No Murmurs GI/Abdominal Exam: Normal Bowel Sounds, Soft, Non-Tender, No Distention (Male) Exam: Deferred Back Exam: Normal Inspection, Full Range of Motion Extremities: Normal Inspection, Normal Range of Motion, Non-Tender, No Pedal Edema, Normal Capillary Refill Peripheral Pulses: 2+: Radial (L), Radial (R), Dorsalis Pedis (L), Dorsalis Pedis (R) Skin: Warm, Dry, Intact Neurological: No New Focal Deficit Psy/Mental Status: Alert, Normal Affect, Normal Mood Sepsis Event Note - Evaluation Sepsis Screening Result: Sepsis Risk - Focused Exam Vital Signs: Vital Signs Temp Pulse Resp BP Pulse Ox Pulse Ox 07/27/20 10:46 90 L 07/27/20 08:39 97.5 F 92 24 H 133/79 88 L 07/27/20 08:06 90 L 07/27/20 06:37 97.9 F 80 20 113/82 92 L 07/27/20 06:12 92 L - Problem List & Annotations (1) COVID-19 SNOMED Code(s): 798312125 Code(s): U07.1 - COVID-19 Status: Acute Priority: High Current Visit: Yes (2) Hypokalemia SNOMED Code(s): 82540146 Code(s): E87.6 - HYPOKALEMIA Status: Acute Priority: High Current Visit: Yes (3) Hypoxia SNOMED Code(s): 311415896 Code(s): R09.02 - HYPOXEMIA Status: Acute Priority: High Current Visit: Yes (4) Pneumonia due to COVID-19 virus SNOMED Code(s): 407810456037775252 Code(s): U07.1 - COVID-19; J12.89 - OTHER VIRAL PNEUMONIA Status: Acute Priority: High Current Visit: Yes (5) Renal insufficiency SNOMED Code(s): 890561393, 739202578 Code(s): N28.9 - DISORDER OF KIDNEY AND URETER, UNSPECIFIED Status: Acute Priority: High Current Visit: Yes - Problem List Review Problem List Initiated/Reviewed/Updated: Yes - My Orders Last 24 Hours: My Active Orders 07/27/20 09:00 Aspirin [Ecotrin] 325 mg PO DAILY 07/28/20 05:11 C-REACTIVE PROTEIN [CHEM] AM CBC WITH AUTO DIFF [HEME] AM COMPREHENSIVE METABOLIC PN,CMP [CHEM] AM D-DIMER QUANTITATIVE [COAG] AM MAGNESIUM [CHEM] AM - Assessment Assessment:: I have seen and examined the patient independent of nurse practitioner Carlos King and I have discussed the case with her. I have reviewed and agree with the assessment and plan as outlined for this patient by her. Please see orders. 07/20/10 * 1 week history of weakness, general malaise, poor appetite, shortness of breath and diarrhea * History of exposure to COVID-19 * History of COPD * Chest x-ray shows lung choe show prominence to the pulmonary interstitium. Minimal groundglass airspace disease at the lower lung choe bilaterally. * The patient did receive 40 mEq of potassium IV in the ER. Lab results: * Platelet count 411 * Potassium 2.5 * Anion gap 19.5 * BUN 37 * Creatinine 1.6 * GFR 44 * Glucose 132 * LDH 516 * Troponin 0 0.066 * C-reactive protein 26.0 * Lactic acid 1.8 * Ferritin 1692 * BNP 261 * D-dimer 1.01 Arterial blood gases: * pH 7.51 * PCO2 29.5 * PO2 62.0 * HCO3 23.0 * Currently on 5 L per nasal cannula Vital signs: * Temperature 100.7 * Pulse 118 * Respiratory rate 36 * Blood pressure 149/86 * Pulse ox 75% on room air; 90% on 5 L per nasal cannula Plan: * Start remdesivir. The risks and benefits were discussed with the patient. I offered him the patient and caregiver EUA remdesivir fact sheet to read and review. I stated the drug has been approved by an emergency use authorization process and has not fully been FDA reviewed or approved. The patient meets the EUA requirements. I shared that the drug may cause liver abnormalities and infusion related side effects. Additionally, other side effects are possible but not shown as the drug has had limited studies. I discussed there are other potential treatment options that are not currently FDA approved to treat COVID-19. Offered opportunity to ask questions and all questions were answered. The patient voiced understanding and agreed to proceed with the treatment for himself. * Start dexamethasone * Give 2 units of convalescent plasma. Consent was obtained prior. I spoke with him to provide information about convalescent plasma for himself. I offered him the fax sheet for patients and parents/caregivers for COVID-19 convalescent plasma to read and review. I stated the therapy has been approved by an emergency youth authorization process and has not fully been FDA reviewed or approved. I shared potential risks from the therapy including transmission of blood-borne pathogens such as HIV and hepatitis C, allergic and transfusion related reactions, post transfusion purpura. Additionally theoretical risks including a phenomenon called antibody dependent enhancement of infection such as is seen in dengue or attenuation of an immune response that may make patients more susceptible to reinfection. I discussed there are other potential treatment options that are currently not FDA approved to treat COVID-19. Offered opportunity to ask questions and all questions were answered. The patient voiced understanding and agreed to proceed with the treatment for himself. * Incentive spirometry * RT to titrate oxygen * PRN albuterol * Monitor for hypoxemia * Monitor lab work and replace electrolytes as needed * Renally dose medications * Continue home statin * Dietary consult * director of child welfare services and discharge planning consult * Theophylline level * Repeat troponin 07/21/2020 The patient is a 64-year-old gentleman who was still short of breath today. He is currently on dexamethasone and this will continue. He has also had co nvalescent plasma. The patient will be kept at least enough to finish 5 days of remdesivir. Patient also had been hypokalemic and laboratory testing has been ordered and the patient will have electrolytes replaced as necessary. Continue with diet as tolerated. Encouraged to ambulate. 07/22/2020 The patient is a 64-year-old gentleman who has been tolerating the COVID-19 treatment well. The patient will be kept long enough to finish at least 5 days of remdesivir. I have advised the patient that he will need to go home with dexamethasone or equivalent. The patient's hypokalemia has resolved. I have ordered repeat laboratory studies for the morning to check the patient's electrolytes. He has been encouraged to continue with his current diet. I have encouraged the patient also to ambulate. 07/23/20 The patient is on day 4 of remdesivir and dexamethasone. Continues on high flow O2 with respiratory therapy attempting to titrate down. He on 60 L at 75% FiO2. Appetite remains poor he is however receiving protein supplements. He has been doing his incentive spirometer up to 1500. I encouraged him to be up in the chair 3 times daily with all meals and to start prone positioning. Will recheck lab work in the a.m. 07/24/20 Patient is on day 5 of remdesivir and dexamethasone. He does continue on high flow O2 at 60 L and 70%. Respiratory care continues to attempt to wean patient off of oxygen. Appetite remains poor encouraging patient to attempt to eat and consume 100% of protein supplements. Continues to use his incentive spirometer. Needs a lot of encouragement to get out of bed for meals. Did sleep in the prone position for a few hours last night. Vital signs remained stable and he has not had a fever in the past 24 hours. Nursing staff reports that patient is very weak when attempting to get out of bed. WBC 14.41 from 10.02 Platelet 795 from 6.25 D-dimer 0.95 from 0.77 Potassium 4.0 from 3.5 BUN 33 from 35 Creatinine 1.0 GFR greater than 60 C-reactive protein 4.9 from 7.7 Awaiting procalcitonin level Portable chest x-ray was obtained findings interval resolution of bibasilar opacities. Prominent interstitial changes in the right and left midlung/perihilar regions. No consolidation. 07/25/20 Continues to be on high flow O2, however respiratory care is titrating this down. He is on day 6 of dexamethasone. He is on day 3 of Zithromax and Rocephin. Appetite is still poor encouraging to eat and consume protein supplements and increase fluid intake. Has been using his incentive spirometer. Has been sleeping in the prone position and from side to side intermittently. Vital signs remained stable. WBC 12.45 Platelets 733 D-dimer 1.26 BUN 32 Creatinine 0.9 GFR greater than 60 C-reactive protein 2.7 Procalcitonin 0.46 07/26/20 Patient is on day 3 of Rocephin and Zithromax. He is on day 7 of dexamethasone. Continues to be on high flow O2. Appetite is poor consuming 100% of protein supplements sent from dietary. He has been using his incentive spirometer. Vital signs remained stable. He does need a lot of very strong encouragement to get out of bed, to work with physical therapy, and complete basic ADLs. WBC 16.01 up from 12.45 Platelet count 987 up from 733 D-dimer 2.02 up from 1.26 BUN 29 down from 32 Creatinine 1.0 up from 0.9 GFR greater than 60 Magnesium 2.0 C-reactive protein 2.1 down from 2.7 07/27/20 Day 4 of Rocephin. Day 8 of dexamethasone Continues on high flow O2 at 50 L and FiO2 of 40%. Appetite remains poor. States he still does have a bit of a cough without sputum production More agreeable to working with therapies and nursing staff today. Vital signs remained stable. White blood cell 12.36 down from 16.01 Hemoglobin 11.4 down from 14.1 Platelet 783 down from 987 D-dimer 1.43 down from 2.02 BUN 23 down from 29 Creatinine 0.8 down from 1.0 GFR greater than 60 C-reactive protein 2.1 - Plan Plan:: 07/25/20 Continue dexamethasone for a total of 10 days. Continue to attempt to titrate oxygen down. Monitor for hypoxia. Incentive spirometer. Continue with Lovenox for DVT prophylaxis. Continue Zithromax and Rocephin. PT and OT to consult regarding strengthening. Recheck lab work in the a.m. Plan for discharge once the patient's oxygen can be titrated down to go home safely. 07/26/20 Continue p.o. dexamethasone. RT to continue titrating O2 Encourage incentive spirometer Encourage prone positioning Monitor for hypoxia Continue with Lovenox for DVT prophylaxis Continue Zithromax and Rocephin PT and OT to continue working with the patient for strengthening Patient for was sent for a CT scan of his chest due to high platelet count elevated white count elevated D-dimer CT of chest showed no evidence of acute PE, nonspecific chronic interstitial lung disease with possible superimposed consolidation in the right lower lobe, hiatal hernia. At this time we will start aspirin [address] Mortensen's recommendations. We will continue to monitor lab work. Specifically following WBCs, platelets, and D-dimer. 07/27/20 Continue dexamethasone and Rocephin. Monitor for hypoxia RT to continue titrating O2. Encourage incentive spirometer and Acapella Lovenox for DVT prophylaxis PT OT to evaluate and treat patient while in the hospital for strengthening Repeat lab work in the a.m. Patient will likely end of going home on oxygen however it will probably be a couple more days as he is still on high flow O2. <Aristeo Mortensen - Last Filed: 07/27/20 16:26> - Patient Data Vitals - Most Recent: Last Vital Signs Temp 36.4 C 07/27/20 15:55 Pulse 89 07/27/20 15:55 Resp 20 07/27/20 15:55 BP 103/70 07/27/20 15:55 Pulse Ox 94 L 07/27/20 15:55 I&O - Last 24 Hours: Intake & Output 07/27/20 07/27/20 07/27/20 06:59 14:59 22:59 Intake Total 800 120 700 Output Total 900 300 Balance -100 120 400 Lab Results Last 24 Hours: Laboratory Results - last 24 hr 07/27/20 07/27/20 07/27/20 Range/Units 04:25 04:25 04:25 WBC 12.36 H (4.23-9.07) K/mm3 RBC 3.88 L (4.63-6.08) M/mm3 Hgb 11.4 L D (13.7-17.5) gm/dl Hct 35.1 L (40.1-51.0) % MCV 90.5 (79.0-92.2) fl MCH 29.4 (25.7-32.2) pg MCHC 32.5 (32.2-35.5) g/dl RDW Std Deviation 40.7 (35.1-43.9) fL Plt Count 783 H D (163-337) K/mm3 MPV 9.1 L (9.4-12.3) fl Neut % (Auto) 75.8 H (34.0-67.9) % Lymph % (Auto) 11.5 L (21.8-53.1) % [place] % (Auto) 8.4 (5.3-12.2) % Eos % (Auto) 0.3 L (0.8-7.0) Baso % (Auto) 0.2 (0.1-1.2) % Neut # (Auto) 9.36 H (1.78-5.38) K/mm3 Lymph # (Auto) 1.42 (1.32-3.57) K/mm3 [place] # (Auto) 1.04 H (0.30-0.82) K/mm3 Eos # (Auto) 0.04 (0.04-0.54) K/mm3 Baso # (Auto) 0.03 (0.01-0.08) K/mm3 Manual Slide Review Abnormal smear D-Dimer, Quantitative 1.43 H (0.19-0.50) mg/L Sodium 138 (136-145) mEq/L Potassium 3.6 (3.5-5.1) mEq/L Chloride 101 (98-107) mEq/L Carbon Dioxide 32 (21-32) mEq/L Anion Gap 8.6 (5-15) BUN 23 H (7-18) mg/dL Creatinine 0.8 (0.7-1.3) mg/dL Est Cr Clr Drug Dosing 85.29 mL/min Estimated GFR (MDRD) > 60 (>60) mL/min BUN/Creatinine Ratio 28.8 H (14-18) Glucose 99 (80-115) mg/dL Calcium 8.2 L (8.5-10.1) mg/dL Magnesium 2.0 (1.8-2.4) mg/dl Total Bilirubin 0.4 (0.2-1.0) mg/dL AST 37 (15-37) U/L ALT 47 (16-63) U/L Alkaline Phosphatase 47 (46-116) U/L C-Reactive Protein 2.1 H* (<1.0) mg/dL Total Protein 5.7 L (6.4-8.2) g/dl Albumin 2.0 L (3.4-5.0) g/dl Globulin 3.7 gm/dL Albumin/Globulin Ratio 0.5 L (1-2) [place] Results Last 24 Hours: Microbiology 07/20/20 09:00 Aerobic Blood Culture - Final Blood - Venous - Lab Draw NO GROWTH AFTER 7 DAYS Anaerobic Blood Culture - Final NO GROWTH AFTER 7 DAYS 07/20/20 08:50 Aerobic Blood Culture - Final Blood - Venous NO GROWTH AFTER 7 DAYS Anaerobic Blood Culture - Final NO GROWTH AFTER 7 DAYS Med Orders - Current: Current Medications Acetaminophen (Tylenol) 650 mg PO Q4H PRN PRN Reason: Pain (Mild 1-3)/fever Albuterol (Proventil Neb Soln) 2.5 mg NEB Q2H PRN PRN Reason: Shortness Of Breath/wheezing Albuterol (Proventil Hfa) 0 gm INH Q4H PRN PRN Reason: Wheezing Last Admin: 07/27/20 08:05 Dose: 2 puff Documented by: Aspirin (Ecotrin) 325 mg PO DAILY [facility] Last Admin: 07/27/20 08:31 Dose: 325 mg Documented by: Dexamethasone (Dexamethasone) 6 mg PO DAILY [facility] Stop: 07/29/20 09:01 Last Admin: 07/27/20 08:31 Dose: 6 mg Documented by: Enoxaparin Sodium (Lovenox) 40 mg SUBCUT Q12H [facility] Last Admin: 07/27/20 08:31 Dose: 40 mg Documented by: Fluticasone Propionate (Flonase) 0 gm NASBOTH BID [facility] Last Admin: 07/27/20 09:30 Dose: 1 spray Documented by: Glycopyrrolate (Seebri Neohaler) 15.6 mcg IH BID [facility] Last Admin: 07/27/20 08:05 Dose: 1 cap.ec Documented by: Ceftriaxone Sodium 2 gm/ (Sodium Chloride) 100 mls @ 200 mls/hr IV Q24H [facility] Stop: 07/28/20 11:29 Last Admin: 07/27/20 11:39 Dose: 200 mls/hr Documented by: Mometasone Furoate/Formoterol Fumar (Dulera 200-5 Mcg) 0 puff INH BID [facility] Last Admin: 07/27/20 08:06 Dose: 2 puff Documented by: Ondansetron HCl (Zofran) 4 mg IV Q6H PRN PRN Reason: Nausea/Vomiting Last Admin: 07/23/20 00:35 Dose: 4 mg Documented by: Pantoprazole Sodium (Protonix) 40 mg PO DAILY@0700 [facility] Last Admin: 07/27/20 06:38 Dose: 40 mg Documented by: Simvastatin (Zocor) 20 mg PO BEDTIME [facility] Last Admin: 07/26/20 20:16 Dose: 20 mg Documented by: Sodium Chloride (Saline Flush) 10 ml FLUSH ASDIRECTED PRN PRN Reason: Keep Vein Open Last Admin: 07/20/20 08:50 Dose: 10 ml Documented by: Theophylline (Theophylline Anhydrous) 600 mg PO DAILY [facility] Last Admin: 07/27/20 14:42 Dose: Not Given Documented by: Theophylline (Theophylline Anhydrous) 300 mg PO DAILY [facility] Last Admin: 07/25/20 08:41 Dose: 300 mg Documented by: Discontinued Medications Aspirin (Halfprin) 81 mg PO DAILY [facility] Last Admin: 07/26/20 08:24 Dose: 81 mg Documented by: Aspirin (Halfprin) 243 mg PO ONETIME ONE Stop: 07/26/20 11:01 Last Admin: 07/26/20 12:37 Dose: 243 mg Documented by: Enoxaparin Sodium (Lovenox) 40 mg SUBCUT Q12H [facility] Last Admin: 07/24/20 00:10 Dose: 40 mg Documented by: Potassium Chloride 10 meq/ (Premix) 100 mls @ 100 mls/hr IV Q1H [facility] Stop: 07/20/20 13:59 Last Admin: 07/20/20 15:20 Dose: 100 mls/hr Documented by: Sodium Chloride (Normal Saline) 1,000 mls @ 150 mls/hr IV ASDIRECTED [facility] Last Admin: 07/20/20 10:17 Dose: 150 mls/hr Documented by: Remdesivir 200 mg/ Sodium (Chloride) 250 mls @ 250 mls/hr IV ONETIME ONE Stop: 07/20/20 13:29 Last Admin: 07/20/20 13:00 Dose: 250 mls/hr Documented by: Remdesivir 100 mg/ Sodium (Chloride) 100 mls @ 100 mls/hr IV Q24H [facility] [facility] Stop: 07/24/20 13:29 Last Admin: 07/24/20 12:33 Dose: 100 mls/hr Documented by: Sodium Chloride (Normal Saline) 250 mls @ 125 mls/hr IV ASDIRECTED [facility] Stop: 07/20/20 23:00 Last Admin: 07/20/20 15:26 Dose: 125 mls/hr Documented by: Potassium Chloride/Sodium Chloride (Normal Saline With 40 Meq Kcl) 500 mls @ 50 mls/hr IV ASDIRECTED [facility] Potassium Chloride 10 meq/ (Premix) 100 mls @ 100 mls/hr IV Q1H [facility] Stop: 07/21/20 14:29 Last Admin: 07/21/20 15:58 Dose: 100 mls/hr Documented by: Azithromycin 500 mg/ Sodium (Chloride) 250 mls @ 250 mls/hr IV Q24H [facility] Stop: 07/26/20 14:29 Last Admin: 07/26/20 14:08 Dose: 250 mls/hr Documented by: Sodium Chloride (Normal Saline) 100 mls @ 75 mls/hr IV ASDIRECTED [facility] Stop: 07/26/20 13:00 Iopamidol (Isovue-370 (76%)) 100 ml IVPUSH ONETIME ONE Stop: 07/26/20 10:55 Last Admin: 07/26/20 11:43 Dose: Not Given Documented by: Potassium Chloride (Klor-Con M20) 40 meq PO ONETIME ONE Stop: 07/20/20 21:01 Last Admin: 07/20/20 21:06 Dose: 40 meq Documented by: Potassium Chloride (Klor-Con M20) 40 meq PO ONETIME ONE Stop: 07/27/20 07:56 Last Admin: 07/27/20 09:30 Dose: 40 meq Documented by: Potassium Chloride (Klor-Con M20) 20 meq PO ONETIME ONE Stop: 07/27/20 09:16 Last Admin: 07/27/20 09:31 Dose: Not Given Documented by: Sodium Chloride (Saline Flush) 10 ml FLUSH ONETIME PRN PRN Reason: IV FLUSH Stop: 07/26/20 13:00 Sepsis Event Note - Focused Exam Vital Signs: Vital Signs Temp Pulse Resp BP Pulse Ox Pulse Ox 07/27/20 15:55 36.4 C 89 20 103/70 94 L 07/27/20 12:17 36.6 C 91 22 H 107/73 91 L 07/27/20 10:46 90 L 07/27/20 08:39 36.4 C 92 24 H 133/79 88 L 07/27/20 08:06 90 L 07/27/20 06:37 36.6 C 80 20 113/82 92 L 07/27/20 06:12 92 L - Problem List & Annotations (1) Pneumonia due to COVID-19 virus SNOMED Code(s): 730059358300697890 Code(s): U07.1 - COVID-19; J12.89 - OTHER VIRAL PNEUMONIA Status: Acute Priority: High Current Visit: Yes (2) Hypokalemia SNOMED Code(s): 18633127 Code(s): E87.6 - HYPOKALEMIA Status: Acute Priority: High Current Visit: Yes (3) Hypoxia SNOMED Code(s): 391735095 Code(s): R09.02 - HYPOXEMIA Status: Acute Priority: High Current Visit: Yes - Plan Plan:: I have seen and examined the patient independent of nurse practitioner Carlos King and I have discussed the case with her. I have reviewed and agree with the assessment and plan as outlined for this patient by her. Please see orders.
[2020-07-27] MEDS: Simvastatin 20 MG Tab PO SCH (20:59)
[2020-07-28] MEDS: Pantoprazole 40 MG Tab.CR PO SCH (06:05)
[2020-07-28] MEDS: Glycopyrrolate 15.6 MCG Cap.W.Dev Kit of 6 IH SCH ×2 (08:40→20:51)
[2020-07-28] MEDS: Formoterol/Mometasone 200-5 MCG 13 GM Inhaler INH SCH ×2 (08:40→20:50)
[2020-07-28] MEDS: Albuterol 6.7 GM Inhaler INH PRN ×2 (08:41→20:51)
[2020-07-28] MEDS: Aspirin 325 MG Tab.EC PO SCH (09:16)
[2020-07-28] MEDS: Dexamethasone 4 MG Tab PO SCH (09:16)
[2020-07-28] MEDS: Fluticasone Propionate Nasal Spray 16 GM Bottle NASBOTH SCH ×2 (09:16→20:27)
[2020-07-28] MEDS: Theophylline 300 MG Tab.ER PO SCH (09:16)
[2020-07-28] MEDS: Enoxaparin 40 MG/0.4 ML Syringe SUBCUT SCH ×2 (09:16→20:26)
--- NOTE | 2020-07-28 11:07 | PCM.PN ---
- General Info Date of Service: 07/28/20 Admission Dx/Problem (Free Text): Admission Diagnosis/Problem Admission Diagnosis/Problem Hypoxia Subjective Update: The patient is a 64-year-old gentleman who was admitted to acute hospitalization on July 20, 2020 secondary to COVID-19 pneumonia. The patient has been doing well. He still requires high flow oxygen. The patient has been tolerating his diet. The patient has completed antiviral treatment and has tolerated this. Functional Status: Reports: Pain Controlled, Tolerating Diet - Review of Systems General: Reports: Weakness HEENT: Reports: No Symptoms Pulmonary: Reports: Shortness of Breath, Cough Cardiovascular: Reports: No Symptoms Gastrointestinal: Reports: No Symptoms Genitourinary: Reports: No Symptoms Musculoskeletal: Reports: No Symptoms Skin: Reports: No Symptoms Neurological: Reports: No Symptoms Psychiatric: Reports: No Symptoms - Patient Data Vitals - Most Recent: Last Vital Signs Temp 36.6 C 07/28/20 08:05 Pulse 92 07/28/20 08:05 Resp 15 07/28/20 08:05 BP 119/76 07/28/20 08:05 Pulse Ox 91 L 07/28/20 08:42 Weight - Most Recent: 83.007 kg I&O - Last 24 Hours: Intake & Output 07/27/20 07/28/20 07/28/20 22:59 06:59 14:59 Intake Total 800 600 Output Total 300 450 Balance 500 150 Lab Results Last 24 Hours: Laboratory Results - last 24 hr 07/28/20 07/28/20 07/28/20 Range/Units 06:05 06:05 06:05 WBC 15.26 H (4.23-9.07) K/mm3 RBC 3.90 L (4.63-6.08) M/mm3 Hgb 11.5 L (13.7-17.5) gm/dl Hct 35.5 L (40.1-51.0) % MCV 91.0 (79.0-92.2) fl MCH 29.5 (25.7-32.2) pg MCHC 32.4 (32.2-35.5) g/dl RDW Std Deviation 40.7 (35.1-43.9) fL Plt Count 820 H (163-337) K/mm3 MPV 8.8 L (9.4-12.3) fl Neut % (Auto) 76.6 H (34.0-67.9) % Lymph % (Auto) 10.7 L (21.8-53.1) % Mora % (Auto) 7.9 (5.3-12.2) % Eos % (Auto) 0.1 L (0.8-7.0) Baso % (Auto) 0.1 (0.1-1.2) % Neut # (Auto) 11.67 H (1.78-5.38) K/mm3 Lymph # (Auto) 1.64 (1.32-3.57) K/mm3 [place]a # (Auto) 1.21 H (0.30-0.82) K/mm3 Eos # (Auto) 0.02 L (0.04-0.54) K/mm3 Baso # (Auto) 0.02 (0.01-0.08) K/mm3 Manual Slide Review Abnormal smear D-Dimer, Quantitative 1.85 H (0.19-0.50) mg/L Sodium 139 (136-145) mEq/L Potassium 4.1 (3.5-5.1) mEq/L Chloride 104 (98-107) mEq/L Carbon Dioxide 30 (21-32) mEq/L Anion Gap 9.1 (5-15) BUN 21 H (7-18) mg/dL Creatinine 0.8 (0.7-1.3) mg/dL Est Cr Clr Drug Dosing 85.29 mL/min Estimated GFR (MDRD) > 60 (>60) mL/min BUN/Creatinine Ratio 26.3 H (14-18) Glucose 85 (80-115) mg/dL Calcium 8.2 L (8.5-10.1) mg/dL Magnesium 2.0 (1.8-2.4) mg/dl Total Bilirubin 0.4 (0.2-1.0) mg/dL AST 61 H (15-37) U/L ALT 68 H (16-63) U/L Alkaline Phosphatase 53 (46-116) U/L C-Reactive Protein 1.9 H* (<1.0) mg/dL Total Protein 5.8 L (6.4-8.2) g/dl Albumin 2.1 L (3.4-5.0) g/dl Globulin 3.7 gm/dL Albumin/Globulin Ratio 0.6 L (1-2) Jaiden Results Last 24 Hours: Microbiology 07/20/20 09:00 Aerobic Blood Culture - Final Blood - Venous - Lab Draw NO GROWTH AFTER 7 DAYS Anaerobic Blood Culture - Final NO GROWTH AFTER 7 DAYS 07/20/20 08:50 Aerobic Blood Culture - Final Blood - Venous NO GROWTH AFTER 7 DAYS Anaerobic Blood Culture - Final NO GROWTH AFTER 7 DAYS Med Orders - Current: Current Medications Acetaminophen (Tylenol) 650 mg PO Q4H PRN PRN Reason: Pain (Mild 1-3)/fever Albuterol (Proventil Neb Soln) 2.5 mg NEB Q2H PRN PRN Reason: Shortness Of Breath/wheezing Albuterol (Proventil Hfa) 0 gm INH Q4H PRN PRN Reason: Wheezing Last Admin: 07/28/20 08:41 Dose: 2 puff Documented by: Aspirin (Ecotrin) 325 mg PO DAILY [facility] Last Admin: 07/28/20 09:16 Dose: 325 mg Documented by: Dexamethasone (Dexamethasone) 6 mg PO DAILY [facility] Stop: 07/29/20 09:01 Last Admin: 07/28/20 09:16 Dose: 6 mg Documented by: Enoxaparin Sodium (Lovenox) 40 mg SUBCUT Q12H [facility] Last Admin: 07/28/20 09:16 Dose: 40 mg Documented by: Fluticasone Propionate (Flonase) 0 gm NASBOTH BID [facility] Last Admin: 07/28/20 09:16 Dose: 1 spray Documented by: Glycopyrrolate (Seebri Neohaler) 15.6 mcg IH BID [facility] Last Admin: 07/28/20 08:40 Dose: 1 cap.ec Documented by: Ceftriaxone Sodium 2 gm/ (Sodium Chloride) 100 mls @ 200 mls/hr IV Q24H [facility] Stop: 07/28/20 11:29 Last Admin: 07/27/20 11:39 Dose: 200 mls/hr Documented by: Mometasone Furoate/Formoterol Fumar (Dulera 200-5 Mcg) 0 puff INH BID [facility] Last Admin: 07/28/20 08:40 Dose: 2 puff Documented by: Ondansetron HCl (Zofran) 4 mg IV Q6H PRN PRN Reason: Nausea/Vomiting Last Admin: 07/23/20 00:35 Dose: 4 mg Documented by: Pantoprazole Sodium (Protonix) 40 mg PO DAILY@0700 [facility] Last Admin: 07/28/20 06:05 Dose: 40 mg Documented by: Simvastatin (Zocor) 20 mg PO BEDTIME [facility] Last Admin: 07/27/20 20:59 Dose: 20 mg Documented by: Sodium Chloride (Saline Flush) 10 ml FLUSH ASDIRECTED PRN PRN Reason: Keep Vein Open Last Admin: 07/20/20 08:50 Dose: 10 ml Documented by: Theophylline (Theophylline Anhydrous) 600 mg PO DAILY [facility] Last Admin: 07/28/20 09:16 Dose: 600 mg Documented by: Theophylline (Theophylline Anhydrous) 300 mg PO DAILY [facility] Last Admin: 07/25/20 08:41 Dose: 300 mg Documented by: Discontinued Medications Aspirin (Halfprin) 81 mg PO DAILY [facility] Last Admin: 07/26/20 08:24 Dose: 81 mg Documented by: Aspirin (Halfprin) 243 mg PO ONETIME ONE Stop: 07/26/20 11:01 Last Admin: 07/26/20 12:37 Dose: 243 mg Documented by: Enoxaparin Sodium (Lovenox) 40 mg SUBCUT Q12H [facility] Last Admin: 07/24/20 00:10 Dose: 40 mg Documented by: Potassium Chloride 10 meq/ (Premix) 100 mls @ 100 mls/hr IV Q1H [facility] Stop: 07/20/20 13:59 Last Admin: 07/20/20 15:20 Dose: 100 mls/hr Documented by: Sodium Chloride (Normal Saline) 1,000 mls @ 150 mls/hr IV ASDIRECTED [facility] Last Admin: 07/20/20 10:17 Dose: 150 mls/hr Documented by: Remdesivir 200 mg/ Sodium (Chloride) 250 mls @ 250 mls/hr IV ONETIME ONE Stop: 07/20/20 13:29 Last Admin: 07/20/20 13:00 Dose: 250 mls/hr Documented by: Remdesivir 100 mg/ Sodium (Chloride) 100 mls @ 100 mls/hr IV Q24H [facility] Stop: 07/24/20 13:29 Last Admin: 07/24/20 12:33 Dose: 100 mls/hr Documented by: Sodium Chloride (Normal Saline) 250 mls @ 125 mls/hr IV ASDIRECTED [facility] Stop: 07/20/20 23:00 Last Admin: 07/20/20 15:26 Dose: 125 mls/hr Documented by: Potassium Chloride/Sodium Chloride (Normal Saline With 40 Meq Kcl) 500 mls @ 50 mls/hr IV ASDIRECTED [facility] Potassium Chloride 10 meq/ (Premix) 100 mls @ 100 mls/hr IV Q1H [facility] Stop: 07/21/20 14:29 Last Admin: 07/21/20 15:58 Dose: 100 mls/hr Documented by: Azithromycin 500 mg/ Sodium (Chloride) 250 mls @ 250 mls/hr IV Q24H [facility] Stop: 07/26/20 14:29 Last Admin: 07/26/20 14:08 Dose: 250 mls/hr Documented by: Sodium Chloride (Normal Saline) 100 mls @ 75 mls/hr IV ASDIRECTED [facility] Stop: 07/26/20 13:00 Iopamidol (Isovue-370 (76%)) 100 ml IVPUSH ONETIME ONE Stop: 07/26/20 10:55 Last Admin: 07/26/20 11:43 Dose: Not Given Documented by: Potassium Chloride (Klor-Con M20) 40 meq PO ONETIME ONE Stop: 07/20/20 21:01 Last Admin: 07/20/20 21:06 Dose: 40 meq Documented by: Potassium Chloride (Klor-Con M20) 40 meq PO ONETIME ONE Stop: 07/27/20 07:56 Last Admin: 07/27/20 09:30 Dose: 40 meq Documented by: Potassium Chloride (Klor-Con M20) 20 meq PO ONETIME ONE Stop: 07/27/20 09:16 Last Admin: 07/27/20 09:31 Dose: Not Given Documented by: Sodium Chloride (Saline Flush) 10 ml FLUSH ONETIME PRN PRN Reason: IV FLUSH Stop: 07/26/20 13:00 - Exam Quality Assessment: Supplemental Oxygen, DVT Prophylaxis General: Alert, Oriented, Cooperative, No Acute Distress HEENT: Pupils Equal, Pupils Reactive, EOMI. No: Mucous Membr. Moist/[place] (Dry) Neck: Supple, Trachea Midline Lungs: Decreased Breath Sounds, Rales (Bibasilar) Cardiovascular: Regular Rate, Regular Rhythm GI/Abdominal Exam: Normal Bowel Sounds, Soft, Non-Tender, No Distention (Male) Exam: Deferred Back Exam: Normal Inspection, Full Range of Motion Extremities: Normal Inspection, No Pedal Edema Skin: Warm, Dry, Intact Neurological: No New Focal Deficit Psy/Mental Status: Alert, Normal Affect, Normal Mood Sepsis Event Note - Evaluation Sepsis Screening Result: Sepsis Risk - Focused Exam Vital Signs: Vital Signs Temp Pulse Resp BP Pulse Ox Pulse Ox 07/28/20 08:42 91 L 07/28/20 08:05 36.6 C 92 15 119/76 87 L 07/28/20 01:56 36.4 C 80 20 129/80 90 L - Problem List & Annotations (1) Pneumonia due to COVID-19 virus SNOMED Code(s): 302475023147104299 Code(s): U07.1 - COVID-19; J12.89 - OTHER VIRAL PNEUMONIA Status: Acute Priority: High Current Visit: Yes (2) Hypokalemia SNOMED Code(s): 24471233 Code(s): E87.6 - HYPOKALEMIA Status: Acute Priority: High Current Visit: Yes (3) Hypoxia SNOMED Code(s): 582080045 Code(s): R09.02 - HYPOXEMIA Status: Acute Priority: High Current Visit: Yes - Problem List Review Problem List Initiated/Reviewed/Updated: Yes - Assessment Assessment:: I have seen and examined the patient independent of nurse practitioner Carlos King and I have discussed the case with her. I have reviewed and agree with the assessment and plan as outlined for this patient by her. Please see orders. 07/20/10 * 1 week history of weakness, general malaise, poor appetite, shortness of breath and diarrhea * History of exposure to COVID-19 * History of COPD * Chest x-ray shows lung choe show prominence to the pulmonary interstitium. Minimal groundglass airspace disease at the lower lung choe bilaterally. * The patient did receive 40 mEq of potassium IV in the ER. Lab results: * Platelet count 411 * Potassium 2.5 * Anion gap 19.5 * BUN 37 * Creatinine 1.6 * GFR 44 * Glucose 132 * LDH 516 * Troponin 0 0.066 * C-reactive protein 26.0 * Lactic acid 1.8 * Ferritin 1692 * BNP 261 * D-dimer 1.01 Arterial blood gases: * pH 7.51 * PCO2 29.5 * PO2 62.0 * HCO3 23.0 * Currently on 5 L per nasal cannula Vital signs: * Temperature 100.7 * Pulse 118 * Respiratory rate 36 * Blood pressure 149/86 * Pulse ox 75% on room air; 90% on 5 L per nasal cannula Plan: * Start remdesivir. The risks and benefits were discussed with the patient. I offered him the patient and caregiver [employer] remdesivir fact sheet to read and review. I stated the drug has been approved by an emergency use authorization process and has not fully been FDA reviewed or approved. The patient meets the EUA requirements. I shared that the drug may cause liver abnormalities and infusion related side effects. Additionally, other side effects are pos sible but not shown as the drug has had limited studies. I discussed there are other potential treatment options that are not currently FDA approved to treat COVID-19. Offered opportunity to ask questions and all questions were answered. The patient voiced understanding and agreed to proceed with the treatment for himself. * Start dexamethasone * Give 2 units of convalescent plasma. Consent was obtained prior. I spoke with him to provide information about convalescent plasma for himself. I offered him the fax sheet for patients and parents/caregivers for COVID-19 convalescent plasma to read and review. I stated the therapy has been approved by an emergency youth authorization process and has not fully been FDA reviewed or approved. I shared potential risks from the therapy including transmission of blood-borne pathogens such as HIV and hepatitis C, allergic and transfusion related reactions, post transfusion purpura. Additionally theoretical risks including a phenomenon called antibody dependent enhancement of infection such as is seen in dengue or attenuation of an immune response that may make patients more susceptible to reinfection. I discussed there are other potential treatment options that are currently not FDA approved to treat COVID-19. Offered opportunity to ask questions and all questions were answered. The patient voiced understanding and agreed to proceed with the treatment for himself. * Incentive spirometry * RT to titrate oxygen * PRN albuterol * Monitor for hypoxemia * Monitor lab work and replace electrolytes as needed * Renally dose medications * Continue home statin * Dietary consult * guest services representative and discharge planning consult * Theophylline level * Repeat troponin 07/21/2020 The patient is a 64-year-old gentleman who was still short of breath today. He is currently on dexamethasone and this will continue. He has also had convalescent plasma. The patient will be kept at least enough to finish 5 days of remdesivir. Patient also had been hypokalemic and laboratory testing has been ordered and the patient will have electrolytes replaced as necessary. Continue with diet as tolerated. Encouraged to ambulate. 07/22/2020 The patient is a 64-year-old gentleman who has been tolerating the COVID-19 treatment well. The patient will be kept long enough to finish at least 5 days of remdesivir. I have advised the patient that he will need to go home with dexamethasone or equivalent. The patient's hypokalemia has resolved. I have ordered repeat laboratory studies for the morning to check the patient's electrolytes. He has been encouraged to continue with his current diet. I have encouraged the patient also to ambulate. 07/23/20 The patient is on day 4 of remdesivir and dexamethasone. Continues on high flow O2 with respiratory therapy attempting to titrate down. He on 60 L at 75% FiO2. Appetite remains poor he is however receiving protein supplements. He has been doing his incentive spirometer up to 1500. I encouraged him to be up in the chair 3 times daily with all meals and to start prone positioning. Will recheck lab work in the a.m. 07/24/20 Patient is on day 5 of remdesivir and dexamethasone. He does continue on high flow O2 at 60 L and 70%. Respiratory care continues to attempt to wean patient off of oxygen. Appetite remains poor encouraging patient to attempt to eat and consume 100% of protein supplements. Continues to use his incentive spirometer. Needs a lot of encouragement to get out of bed for meals. Did sleep in the prone position for a few hours last night. Vital signs remained stable and he has not had a fever in the past 24 hours. Nursing staff reports that patient is very weak when attempting to get out of bed. WBC 14.41 from 10.02 Platelet 795 from 6.25 D-dimer 0.95 from 0.77 Potassium 4.0 from 3.5 BUN 33 from 35 Creatinine 1.0 GFR greater than 60 C-reactive protein 4.9 from 7.7 Awaiting procalcitonin level Portable chest x-ray was obtained findings interval resolution of bibasilar opacities. Prominent interstitial changes in the right and left midlung/perih ilar regions. No consolidation. 07/25/20 Continues to be on high flow O2, however respiratory care is titrating this down. He is on day 6 of dexamethasone. He is on day 3 of Zithromax and Rocephin. Appetite is still poor encouraging to eat and consume protein supplements and increase fluid intake. Has been using his incentive spirometer. Has been sleeping in the prone position and from side to side intermittently. Vital signs remained stable. WBC 12.45 Platelets 733 D-dimer 1.26 BUN 32 Creatinine 0.9 GFR greater than 60 C-reactive protein 2.7 Procalcitonin 0.46 07/26/20 Patient is on day 3 of Rocephin and Zithromax. He is on day 7 of dexamethasone. Continues to be on high flow O2. Appetite is poor consuming 100% of protein supplements sent from dietary. He has been using his incentive spirometer. Vital signs remained stable. He does need a lot of very strong encouragement to get out of bed, to work with physical therapy, and complete basic ADLs. WBC 16.01 up from 12.45 Platelet count 987 up from 733 D-dimer 2.02 up from 1.26 BUN 29 down from 32 Creatinine 1.0 up from 0.9 GFR greater than 60 Magnesium 2.0 C-reactive protein 2.1 down from 2.7 07/27/20 Day 4 of Rocephin. Day 8 of dexamethasone Continues on high flow O2 at 50 L and FiO2 of 40%. Appetite remains poor. States he still does have a bit of a cough without sputum production More agreeable to working with therapies and nursing staff today. Vital signs remained stable. White blood cell 12.36 down from 16.01 Hemoglobin 11.4 down from 14.1 Platelet 783 down from 987 D-dimer 1.43 down from 2.02 BUN 23 down from 29 Creatinine 0.8 down from 1.0 GFR greater than 60 C-reactive protein 2.1 07/28/2020 The patient is doing well except he is requiring high flow oxygen. This will be continued as necessary to keep his saturations around 90 to 92%. The patient is also an antibiotics and these will be continued. He is on dexamethasone day 9. The patient will continue to have his vital signs monitored. The patient has been encouraged to ambulate around the room. We will continue with the DVT prophylaxis. The patient will be appropriate for discharge once his oxygen levels have improved significantly to require less oxygen. Repeat laboratory studies have been ordered.
[2020-07-28] MEDS: cefTRIAXone 2 GM in Sodium Chloride 0.9% 100 ML IV SCH (11:24)
[2020-07-28] MEDS: Simvastatin 20 MG Tab PO SCH (20:26)
[2020-07-29] MEDS: Pantoprazole 40 MG Tab.CR PO SCH (06:51)
[2020-07-29] MEDS: Glycopyrrolate 15.6 MCG Cap.W.Dev Kit of 6 IH SCH ×2 (08:28→20:33)
[2020-07-29] MEDS: Formoterol/Mometasone 200-5 MCG 13 GM Inhaler INH SCH ×2 (08:28→20:32)
[2020-07-29] MEDS: Albuterol 6.7 GM Inhaler INH PRN ×3 (08:28→20:33)
[2020-07-29] MEDS: Enoxaparin 40 MG/0.4 ML Syringe SUBCUT SCH ×2 (08:55→21:37)
[2020-07-29] MEDS: Dexamethasone 4 MG Tab PO SCH (08:55)
[2020-07-29] MEDS: Aspirin 325 MG Tab.EC PO SCH (08:56)
[2020-07-29] MEDS: Fluticasone Propionate Nasal Spray 16 GM Bottle NASBOTH SCH ×2 (08:56→21:37)
[2020-07-29] MEDS: Theophylline 300 MG Tab.ER PO SCH ×2 (08:56→09:31)
--- NOTE | 2020-07-29 10:19 | PCM.PN ---
- General Info Date of Service: 07/29/20 Admission Dx/Problem (Free Text): Admission Diagnosis/Problem Admission Diagnosis/Problem Hypoxia Subjective Update: The patient is a 64-year-old gentleman who had been admitted to acute hospitalization on July 20, 2020 due to COVID-19 and hypoxia. The patient has completed COVID-19 protocol treatment. He still feels short of breath. He is on high flow oxygen. He has been tolerating diet. Functional Status: Reports: Pain Controlled, Tolerating Diet - Review of Systems General: Reports: Weakness HEENT: Reports: No Symptoms Pulmonary: Reports: Shortness of Breath, Cough, Wheezing Cardiovascular: Reports: No Symptoms Gastrointestinal: Reports: No Symptoms Genitourinary: Reports: No Symptoms Musculoskeletal: Reports: No Symptoms Skin: Reports: No Symptoms Neurological: Reports: No Symptoms Psychiatric: Reports: No Symptoms - Patient Data Vitals - Most Recent: Last Vital Signs Temp 36.3 C 07/29/20 03:45 Pulse 103 H 07/29/20 08:52 Resp 14 07/29/20 03:45 BP 126/89 07/29/20 03:45 Pulse Ox 92 L 07/29/20 08:52 Weight - Most Recent: 83.688 kg I&O - Last 24 Hours: Intake & Output 07/28/20 07/29/20 07/29/20 22:59 06:59 14:59 Intake Total 1520 350 Output Total 480 825 Balance 1040 -475 Lab Results Last 24 Hours: Laboratory Results - last 24 hr 07/29/20 07/29/20 07/29/20 Range/Units 04:31 04:31 04:31 WBC 14.21 H (4.23-9.07) K/mm3 RBC 3.87 L (4.63-6.08) M/mm3 Hgb 11.3 L (13.7-17.5) gm/dl Hct 35.4 L (40.1-51.0) % MCV 91.5 (79.0-92.2) fl MCH 29.2 (25.7-32.2) pg MCHC 31.9 L (32.2-35.5) g/dl RDW Std Deviation 41.7 (35.1-43.9) fL Plt Count 768 H (163-337) K/mm3 MPV 8.7 L (9.4-12.3) fl Neut % (Auto) 77.8 H (34.0-67.9) % Lymph % (Auto) 10.4 L (21.8-53.1) % [place] % (Auto) 8.2 (5.3-12.2) % Eos % (Auto) 0.3 L (0.8-7.0) Baso % (Auto) 0.2 (0.1-1.2) % Neut # (Auto) 11.06 H (1.78-5.38) K/mm3 Lymph # (Auto) 1.48 (1.32-3.57) K/mm3 [place] # (Auto) 1.16 H (0.30-0.82) K/mm3 Eos # (Auto) 0.04 (0.04-0.54) K/mm3 Baso # (Auto) 0.03 (0.01-0.08) K/mm3 Manual Slide Review Abnormal smear D-Dimer, Quantitative 1.41 H (0.19-0.50) mg/L Sodium 140 (136-145) mEq/L Potassium 4.0 (3.5-5.1) mEq/L Chloride 105 (98-107) mEq/L Carbon Dioxide 30 (21-32) mEq/L Anion Gap 9.0 (5-15) BUN 18 (7-18) mg/dL Creatinine 0.7 (0.7-1.3) mg/dL Est Cr Clr Drug Dosing 97.47 mL/min Estimated GFR (MDRD) > 60 (>60) mL/min BUN/Creatinine Ratio 25.7 H (14-18) Glucose 86 (80-115) mg/dL Calcium 8.3 L (8.5-10.1) mg/dL Magnesium 2.0 (1.8-2.4) mg/dl Total Bilirubin 0.3 (0.2-1.0) mg/dL AST 42 H (15-37) U/L ALT 67 H (16-63) U/L Alkaline Phosphatase 52 (46-116) U/L C-Reactive Protein 1.8 H* (<1.0) mg/dL Total Protein 5.6 L (6.4-8.2) g/dl Albumin 2.1 L (3.4-5.0) g/dl Globulin 3.5 gm/dL Albumin/Globulin Ratio 0.6 L (1-2) Med Orders - Current: Current Medications Acetaminophen (Tylenol) 650 mg PO Q4H PRN PRN Reason: Pain (Mild 1-3)/fever Albuterol (Proventil Neb Soln) 2.5 mg NEB Q2H PRN PRN Reason: Shortness Of Breath/wheezing Albuterol (Proventil Hfa) 0 gm INH Q4H PRN PRN Reason: Wheezing Last Admin: 07/29/20 08:28 Dose: 2 puff Documented by: Aspirin (Ecotrin) 325 mg PO DAILY [facility] Last Admin: 07/29/20 08:56 Dose: 325 mg Documented by: Enoxaparin Sodium (Lovenox) 40 mg SUBCUT Q12H [facility] Last Admin: 07/29/20 08:55 Dose: 40 mg Documented by: Fluticasone Propionate (Flonase) 0 gm NASBOTH BID [facility] Last Admin: 07/29/20 08:56 Dose: 1 spray Documented by: Glycopyrrolate (Seebri Neohaler) 15.6 mcg IH BID [facility] Last Admin: 07/29/20 08:28 Dose: 1 cap.ec Documented by: Mometasone Furoate/Formoterol Fumar (Dulera 200-5 Mcg) 0 puff INH BID [facility] Last Admin: 07/29/20 08:28 Dose: 2 puff Documented by: Ondansetron HCl (Zofran) 4 mg IV Q6H PRN PRN Reason: Nausea/Vomiting Last Admin: 07/23/20 00:35 Dose: 4 mg Documented by: Pantoprazole Sodium (Protonix) 40 mg PO DAILY@0700 [facility] Last Admin: 07/29/20 06:51 Dose: 40 mg Documented by: Simvastatin (Zocor) 20 mg PO BEDTIME [facility] Last Admin: 07/28/20 20:26 Dose: 20 mg Documented by: Sodium Chloride (Saline Flush) 10 ml FLUSH ASDIRECTED PRN PRN Reason: Keep Vein Open Last Admin: 07/20/20 08:50 Dose: 10 ml Documented by: Theophylline (Theophylline Anhydrous) 600 mg PO DAILY [facility] Last Admin: 07/29/20 08:56 Dose: 600 mg Documented by: Theophylline (Theophylline Anhydrous) 300 mg PO DAILY [facility] Last Admin: 07/29/20 09:31 Dose: Not Given Documented by: Discontinued Medications Aspirin (Halfprin) 81 mg PO DAILY [facility] Last Admin: 07/26/20 08:24 Dose: 81 mg Documented by: Aspirin (Halfprin) 243 mg PO ONETIME ONE Stop: 07/26/20 11:01 Last Admin: 07/26/20 12:37 Dose: 243 mg Documented by: Dexamethasone (Dexamethasone) 6 mg PO DAILY [facility] Stop: 07/29/20 09:01 Last Admin: 07/29/20 08:55 Dose: 6 mg Documented by: Enoxaparin Sodium (Lovenox) 40 mg SUBCUT Q12H [facility] Last Admin: 07/24/20 00:10 Dose: 40 mg Documented by: Potassium Chloride 10 meq/ (Premix) 100 mls @ 100 mls/hr IV Q1H [facility] Stop: 07/20/20 13:59 Last Admin: 07/20/20 15:20 Dose: 100 mls/hr Documented by: Sodium Chloride (Normal Saline) 1,000 mls @ 150 mls/hr IV ASDIRECTED [facility] Last Admin: 07/20/20 10:17 Dose: 150 mls/hr Documented by: Remdesivir 200 mg/ Sodium (Chloride) 250 mls @ 250 mls/hr IV ONETIME ONE Stop: 07/20/20 13:29 Last Admin: 07/20/20 13:00 Dose: 250 mls/hr Documented by: Remdesivir 100 mg/ Sodium (Chloride) 100 mls @ 100 mls/hr IV Q24H [facility] Stop: 07/24/20 13:29 Last Admin: 07/24/20 12:33 Dose: 100 mls/hr Documented by: Sodium Chloride (Normal Saline) 250 mls @ 125 mls/hr IV ASDIRECTED [facility] Stop: 07/20/20 23:00 Last Admin: 07/20/20 15:26 Dose: 125 mls/hr Documented by: Potassium Chloride/Sodium Chloride (Normal Saline With 40 Meq Kcl) 500 mls @ 50 mls/hr IV ASDIRECTED [facility] Potassium Chloride 10 meq/ (Premix) 100 mls @ 100 mls/hr IV Q1H [facility] Stop: 07/21/20 14:29 Last Admin: 07/21/20 15:58 Dose: 100 mls/hr Documented by: Ceftriaxone Sodium 2 gm/ (Sodium Chloride) 100 mls @ 200 mls/hr IV Q24H [facility] Stop: 07/28/20 11:29 Last Admin: 07/28/20 11:24 Dose: 200 mls/hr Documented by: Azithromycin 500 mg/ Sodium (Chloride) 250 mls @ 250 mls/hr IV Q24H [facility] Stop: 07/26/20 14:29 Last Admin: 07/26/20 14:08 Dose: 250 mls/hr Documented by: Sodium Chloride (Normal Saline) 100 mls @ 75 mls/hr IV ASDIRECTED [facility] Stop: 07/26/20 13:00 Iopamidol (Isovue-370 (76%)) 100 ml IVPUSH ONETIME ONE Stop: 07/26/20 10:55 Last Admin: 07/26/20 11:43 Dose: Not Given Documented by: Potassium Chloride (Klor-Con M20) 40 meq PO ONETIME ONE Stop: 07/20/20 21:01 Last Admin: 07/20/20 21:06 Dose: 40 meq Documented by: Potassium Chloride (Klor-Con M20) 40 meq PO ONETIME ONE Stop: 07/27/20 07:56 Last Admin: 07/27/20 09:30 Dose: 40 meq Documented by: Potassium Chloride (Klor-Con M20) 20 meq PO ONETIME ONE Stop: 07/27/20 09:16 Last Admin: 07/27/20 09:31 Dose: Not Given Documented by: Sodium Chloride (Saline Flush) 10 ml FLUSH ONETIME PRN PRN Reason: IV FLUSH Stop: 07/26/20 13:00 - Exam Quality Assessment: Supplemental Oxygen, DVT Prophylaxis General: Alert, Oriented, Cooperative, No Acute Distress HEENT: Pupils Equal, Pupils Reactive, EOMI, Mucous Membr. Moist/[place] Neck: Supple, Trachea Midline Lungs: Normal Respiratory Effort, Rales (Bibasilar) Cardiovascular: Regular Rate, Regular Rhythm GI/Abdominal Exam: Normal Bowel Sounds, Soft, Non-Tender, No Distention (Male) Exam: Deferred Back Exam: Normal Inspection, Full Range of Motion Extremities: Normal Inspection, Normal Range of Motion, No Pedal Edema Skin: Warm, Dry, Intact Neurological: No New Focal Deficit Psy/Mental Status: Alert, Normal Affect, Normal Mood Sepsis Event Note - Evaluation Sepsis Screening Result: Sepsis Risk - Focused Exam Vital Signs: Vital Signs Temp Pulse Pulse Resp BP Pulse Ox Pulse Ox 07/29/20 08:52 103 H 92 L 07/29/20 08:30 88 L 07/29/20 03:51 95 07/29/20 03:45 36.3 C 76 14 126/89 07/28/20 23:41 93 L - Problem List & Annotations (1) Pneumonia due to COVID-19 virus SNOMED Code(s): 807715622656740565 Code(s): U07.1 - COVID-19; J12.89 - OTHER VIRAL PNEUMONIA Status: Acute Priority: High Current Visit: Yes (2) Hypokalemia SNOMED Code(s): 29167022 Code(s): E87.6 - HYPOKALEMIA Status: Acute Priority: High Current Visit: Yes (3) Hypoxia SNOMED Code(s): 394056356 Code(s): R09.02 - HYPOXEMIA Status: Acute Priority: High Current Visit: Yes - Problem List Review Problem List Initiated/Reviewed/Updated: Yes - Assessment Assessment:: I have seen and examined the patient independent of nurse practitioner Carlos King and I have discussed the case with her. I have reviewed and agree with the assessment and plan as outlined for this patient by her. Please see orders. 07/20/10 * 1 week history of weakness, general malaise, poor appetite, shortness of breath and diarrhea * History of exposure to COVID-19 * History of COPD * Chest x-ray shows lung choe show prominence to the pulmonary interstitium. Minimal groundglass airspace disease at the lower lung choe bilaterally. * The patient did receive 40 mEq of potassium IV in the ER. Lab results: * Platelet count 411 * Potassium 2.5 * Anion gap 19.5 * BUN 37 * Creatinine 1.6 * GFR 44 * Glucose 132 * LDH 516 * Troponin 0 0.066 * C-reactive protein 26.0 * Lactic acid 1.8 * Ferritin 1692 * BNP 261 * D-dimer 1.01 Arterial blood gases: * pH 7.51 * PCO2 29.5 * PO2 62.0 * HCO3 23.0 * Currently on 5 L per nasal cannula Vital signs: * Temperature 100.7 * Pulse 118 * Respiratory rate 36 * Blood pressure 149/86 * Pulse ox 75% on room air; 90% on 5 L per nasal cannula Plan: * Start remdesivir. The risks and benefits were discussed with the patient. I offered him the patient and caregiver EUA remdesivir fact sheet to read and review. I stated the drug has been approved by an emergency use authorization process and has not fully been FDA reviewed or approved. The patient meets the EUA requirements. I shared that the drug may cause liver abnormalities and infusion related side effects. Additionally, other side effects are possible but not shown as the drug has had limited studies. I discussed there are other potential treatment options that are not currently FDA approved to treat COVID-19. Offered opportunity to ask questions and all questions were answered. The patient voiced understanding and agreed to proceed with the treatment for himself. * Start dexamethasone * Give 2 units of convalescent plasma. Consent was obtained prior. I spoke with him to provide information about convalescent plasma for himself. I offered him the fax sheet for patients and parents/caregivers for COVID-19 convalescent plasma to read and review. I stated the therapy has been approved by an emergency youth authorization process and has not fully been FDA reviewed or approved. I shared potential risks from the therapy including transmission of blood-borne pathogens such as HIV and hepatitis C, allergic and transfusion related reactions, post transfusion purpura. Additionally theoretical risks including a phenomenon called antibody dependent enhancement of infection such as is seen in dengue or attenuation of an immune response that may make patients more susceptible to reinfection. I discussed there are other potential treatment options that are currently not FDA approved to treat COVID-19. Offered opportunity to ask questions and all questions were answered. The patient voiced understanding and agreed to proceed with the treatment for himself. * Incentive spirometry * RT to titrate oxygen * PRN albuterol * Monitor for hypoxemia * Monitor lab work and replace electrolytes as needed * Renally dose medications * Continue home statin * Dietary consult * assessment services manager and discharge planning consult * Theophylline level * Repeat troponin 07/21/2020 The patient is a 64-year-old gentleman who was still short of breath today. He is currently on dexamethasone and this will continue. He has also had convalescent plasma. The patient will be kept at least enough to finish 5 days of remdesivir. Patient also had been hypokalemic and laboratory testing has been ordered and the patient will have electrolytes replaced as necessary. Continue with diet as tolerated. Encouraged to ambulate. 07/22/2020 The patient is a 64-year-old gentleman who has been tolerating the COVID-19 treatment well. The patient will be kept long enough to finish at least 5 days of remdesivir. I have advised the patient that he will need to go home with dexamethasone or equivalent. The patient's hypokalemia has resolved. I have ordered repeat laboratory studies for the morning to check the patient's electrolytes. He has been encouraged to continue with his current diet. I have encouraged the patient also to ambulate. 07/23/20 The patient is on day 4 of remdesivir and dexamethasone. Continues on high flow O2 with respiratory therapy attempting to titrate down. He on 60 L at 75% FiO2. Appetite remains poor he is however receiving protein supplements. He has been doing his incentive spirometer up to 1500. I encouraged him to be up in the chair 3 times daily with all meals and to start prone positioning. Will recheck lab work in the a.m. 07/24/20 Patient is on day 5 of remdesivir and dexamethasone. He does continue on high flow O2 at 60 L and 70%. Respiratory care continues to attempt to wean patient off of oxygen. Appetite remains poor encouraging patient to attempt to eat and consume 100% of protein supplements. Continues to use his incentive spirometer. Needs a lot of encouragement to get out of bed for meals. Did sleep in the prone position for a few hours last night. Vital signs remained stable and he has not had a fever in the past 24 hours. Nursing staff reports that patient is very weak when attempting to get out of bed. WBC 14.41 from 10.02 Platelet 795 from 6.25 D-dimer 0.95 from 0.77 Potassium 4.0 from 3.5 BUN 33 from 35 Creatinine 1.0 GFR greater than 60 C-reactive protein 4.9 from 7.7 Awaiting procalcitonin level Portable chest x-ray was obtained findings interval resolution of bibasilar opacities. Prominent interstitial changes in the right and left midlung/perihilar regions. No consolidation. 07/25/20 Continues to be on high flow O2, however respiratory care is titrating this down. He is on day 6 of dexamethasone. He is on day 3 of Zithromax and Rocephin. Appetite is still poor encouraging to eat and consume protein supplements and increase fluid intake. Has been using his incentive spirometer. Has been sleeping in the prone position and from side to side intermittently. Vital signs remained stable. WBC 12.45 Platelets 733 D-dimer 1.26 BUN 32 Creatinine 0.9 GFR greater than 60 C-reactive protein 2.7 Procalcitonin 0.46 07/26/20 Patient is on day 3 of Rocephin and Zithromax. He is on day 7 of dexamethasone. Continues to be on high flow O2. Appetite is poor consuming 100% of protein supplements sent from dietary. He has been using his incentive spirometer. Vital signs remained stable. He does need a lot of very strong encouragement to get out of bed, to work with physical therapy, and complete basic ADLs. WBC 16.01 up from 12.45 Platelet count 987 up from 733 D-dimer 2.02 up from 1.26 BUN 29 down from 32 Creatinine 1.0 up from 0.9 GFR greater than 60 Magnesium 2.0 C-reactive protein 2.1 down from 2.7 07/27/20 Day 4 of Rocephin. Day 8 of dexamethasone Continues on high flow O2 at 50 L and FiO2 of 40%. Appetite remains poor. States he still does have a bit of a cough without sputum production More agreeable to working with therapies and nursing staff today. Vital signs remained stable. White blood cell 12.36 down from 16.01 Hemoglobin 11.4 down from 14.1 Platelet 783 down from 987 D-dimer 1.43 down from 2.02 BUN 23 down from 29 Creatinine 0.8 down from 1.0 GFR greater than 60 C-reactive protein 2.1 07/28/2020 The patient is doing well except he is requiring high flow oxygen. This will be continued as necessary to keep his saturations around 90 to 92%. The patient is also an antibiotics and these will be continued. He is on dexamethasone day 9. The patient will continue to have his vital signs monitored. The patient has been encouraged to ambulate around the room. We will continue with the DVT prophylaxis. The patient will be appropriate for discharge once his oxygen levels have improved significantly to require less oxygen. Repeat laboratory studies have been ordered. 07/29/2020 The patient is doing well he is requiring high flow oxygen to help maintain his saturations around 90%. The patient will be kept on Breathing treatments that are consisted of fluticasone and albuterol. He is also receiving breathing treatments with theophylline. The patient will have a chest x-ray tomorrow. I have also ordered repeat laboratory studies for tomorrow as well. Patient will continue to ambulate as necessary. I anticipate that if the patient's oxygen saturations have improved considerably he should be appropriate for discharge 1 to 2 days. The patient will also be kept on DVT prophylaxis. Patient's D-dimer has remained high and he will likely need to have anticoagulation if he goes home tomorrow.
[2020-07-29] MEDS: Simvastatin 20 MG Tab PO SCH (21:36)
[2020-07-30] MEDS: Pantoprazole 40 MG Tab.CR PO SCH (06:36)
[2020-07-30] MEDS: Glycopyrrolate 15.6 MCG Cap.W.Dev Kit of 6 IH SCH ×2 (08:11→20:56)
[2020-07-30] MEDS: Albuterol 6.7 GM Inhaler INH PRN ×2 (08:11→20:57)
[2020-07-30] MEDS: Formoterol/Mometasone 200-5 MCG 13 GM Inhaler INH SCH ×2 (08:11→20:56)
[2020-07-30] MEDS: Aspirin 325 MG Tab.EC PO SCH (08:35)
[2020-07-30] MEDS: Fluticasone Propionate Nasal Spray 16 GM Bottle NASBOTH SCH ×2 (08:36→20:07)
[2020-07-30] MEDS: Enoxaparin 40 MG/0.4 ML Syringe SUBCUT SCH ×2 (08:36→20:07)
[2020-07-30] MEDS: Theophylline 300 MG Tab.ER PO SCH ×3 (08:36→19:41)
--- NOTE | 2020-07-30 09:55 | PCM.PN ---
- General Info Date of Service: 07/30/20 Admission Dx/Problem (Free Text): Admission Diagnosis/Problem Admission Diagnosis/Problem Hypoxia Subjective Update: States he is feeling much better today. Currently on 6 L per nasal cannula. Has completed remdesivir, dexamethasone, convalescent plasma treatment for Covid. Has also completed 3 days of Zithromax IV, and 5 days of Rocephin IV. Still reports a poor appetite. Needs strong encouragement to be up independe ntly in his room. Functional Status: Reports: Pain Controlled, Ambulating (Needs encouragement), Urinating, Incentive Spirometry. Denies: Tolerating Diet (Poor appetite) - Review of Systems General: Denies: Appetite (For appetite) HEENT: Reports: Glasses. Denies: Headaches Pulmonary: Reports: Cough, Wheezing (Left posterior lobe). Denies: Sputum Cardiovascular: Reports: No Symptoms Gastrointestinal: Reports: No Symptoms Genitourinary: Reports: No Symptoms Musculoskeletal: Reports: No Symptoms Skin: Reports: No Symptoms Neurological: Reports: No Symptoms Psychiatric: Reports: No Symptoms - Patient Data Vitals - Most Recent: Last Vital Signs Temp 98.2 F 07/30/20 07:56 Pulse 87 07/30/20 04:08 Resp 20 07/30/20 07:56 BP 135/91 H 07/30/20 07:56 Pulse Ox 92 L 07/30/20 06:50 Weight - Most Recent: 180 lb 14.4 oz I&O - Last 24 Hours: Intake & Output 07/29/20 07/30/20 07/30/20 22:59 06:59 14:59 Intake Total 821 350 Output Total 500 925 Balance 321 -575 Lab Results Last 24 Hours: Laboratory Results - last 24 hr 07/30/20 07/30/20 07/30/20 Range/Units 06:23 06:23 06:23 WBC 16.52 H (4.23-9.07) K/mm3 RBC 4.22 L (4.63-6.08) M/mm3 Hgb 12.4 L (13.7-17.5) gm/dl Hct 38.3 L (40.1-51.0) % MCV 90.8 (79.0-92.2) fl MCH 29.4 (25.7-32.2) pg MCHC 32.4 (32.2-35.5) g/dl RDW Std Deviation 41.9 (35.1-43.9) fL Plt Count 840 H (163-337) K/mm3 MPV 8.4 L (9.4-12.3) fl Neut % (Auto) 82.0 H (34.0-67.9) % Lymph % (Auto) 8.3 L (21.8-53.1) % [place] % (Auto) 7.6 (5.3-12.2) % Eos % (Auto) 0.2 L (0.8-7.0) Baso % (Auto) 0.1 (0.1-1.2) % Neut # (Auto) 13.55 H (1.78-5.38) K/mm3 Lymph # (Auto) 1.37 (1.32-3.57) K/mm3 [place] # (Auto) 1.25 H (0.30-0.82) K/mm3 Eos # (Auto) 0.04 (0.04-0.54) K/mm3 Baso # (Auto) 0.01 (0.01-0.08) K/mm3 Manual Slide Review Abnormal smear D-Dimer, Quantitative 2.77 H (0.19-0.50) mg/L Sodium 140 (136-145) mEq/L Potassium 3.8 (3.5-5.1) mEq/L Chloride 105 (98-107) mEq/L Carbon Dioxide 28 (21-32) mEq/L Anion Gap 10.8 (5-15) BUN 20 H (7-18) mg/dL Creatinine 0.8 (0.7-1.3) mg/dL Est Cr Clr Drug Dosing 85.29 mL/min Estimated GFR (MDRD) > 60 (>60) mL/min BUN/Creatinine Ratio 25.0 H (14-18) Glucose 86 (80-115) mg/dL Calcium 8.6 (8.5-10.1) mg/dL Phosphorus 3.2 (2.6-4.7) mg/dL Magnesium 2.0 (1.8-2.4) mg/dl Total Bilirubin 0.4 (0.2-1.0) mg/dL AST 52 H (15-37) U/L ALT 86 H (16-63) U/L Alkaline Phosphatase 55 (46-116) U/L C-Reactive Protein 1.3 H* (<1.0) mg/dL Total Protein 6.0 L (6.4-8.2) g/dl Albumin 2.3 L (3.4-5.0) g/dl Globulin 3.7 gm/dL Albumin/Globulin Ratio 0.6 L (1-2) Med Orders - Current: Current Medications Acetaminophen (Tylenol) 650 mg PO Q4H PRN PRN Reason: Pain (Mild 1-3)/fever Albuterol (Proventil Neb Soln) 2.5 mg NEB Q2H PRN PRN Reason: Shortness Of Breath/wheezing Albuterol (Proventil Hfa) 0 gm INH Q4H PRN PRN Reason: Wheezing Last Admin: 07/30/20 08:11 Dose: 2 puff Documented by: Aspirin (Ecotrin) 325 mg PO DAILY [facility] Last Admin: 07/30/20 08:35 Dose: 325 mg Documented by: Enoxaparin Sodium (Lovenox) 40 mg SUBCUT Q12H [facility] Last Admin: 07/30/20 08:36 Dose: 40 mg Documented by: Fluticasone Propionate (Flonase) 0 gm NASBOTH BID [facility] Last Admin: 07/30/20 08:36 Dose: 1 spray Documented by: Glycopyrrolate (Seebri Neohaler) 15.6 mcg IH BID [facility] Last Admin: 07/30/20 08:11 Dose: 1 cap.ec Documented by: Mometasone Furoate/Formoterol Fumar (Dulera 200-5 Mcg) 0 puff INH BID [facility] Last Admin: 07/30/20 08:11 Dose: 2 puff Documented by: Ondansetron HCl (Zofran) 4 mg IV Q6H PRN PRN Reason: Nausea/Vomiting Last Admin: 07/23/20 00:35 Dose: 4 mg Documented by: Pantoprazole Sodium (Protonix) 40 mg PO DAILY@0700 [facility] Last Admin: 07/30/20 06:36 Dose: 40 mg Documented by: Simvastatin (Zocor) 20 mg PO BEDTIME [facility] Last Admin: 07/29/20 21:36 Dose: 20 mg Documented by: Sodium Chloride (Saline Flush) 10 ml FLUSH ASDIRECTED PRN PRN Reason: Keep Vein Open Last Admin: 07/20/20 08:50 Dose: 10 ml Documented by: Theophylline (Theophylline Anhydrous) 600 mg PO DAILY [facility] Last Admin: 07/30/20 08:36 Dose: 600 mg Documented by: Discontinued Medications Aspirin (Halfprin) 81 mg PO DAILY [facility] Last Admin: 07/26/20 08:24 Dose: 81 mg Documented by: Aspirin (Halfprin) 243 mg PO ONETIME ONE Stop: 07/26/20 11:01 Last Admin: 07/26/20 12:37 Dose: 243 mg Documented by: Dexamethasone (Dexamethasone) 6 mg PO DAILY [facility] Stop: 07/29/20 09:01 Last Admin: 07/29/20 08:55 Dose: 6 mg Documented by: Enoxaparin Sodium (Lovenox) 40 mg SUBCUT Q12H [facility] Last Admin: 07/24/20 00:10 Dose: 40 mg Documented by: Potassium Chloride 10 meq/ (Premix) 100 mls @ 100 mls/hr IV Q1H [facility] Stop: 07/20/20 13:59 Last Admin: 07/20/20 15:20 Dose: 100 mls/hr Documented by: Sodium Chloride (Normal Saline) 1,000 mls @ 150 mls/hr IV ASDIRECTED [facility] Last Admin: 07/20/20 10:17 Dose: 150 mls/hr Documented by: Remdesivir 200 mg/ Sodium (Chloride) 250 mls @ 250 mls/hr IV ONETIME ONE Stop: 07/20/20 13:29 Last Admin: 07/20/20 13:00 Dose: 250 mls/hr Documented by: Remdesivir 100 mg/ Sodium (Chloride) 100 mls @ 100 mls/hr IV Q24H [facility] Stop: 07/24/20 13:29 Last Admin: 07/24/20 12:33 Dose: 100 mls/hr Documented by: Sodium Chloride (Normal Saline) 250 mls @ 125 mls/hr IV ASDIRECTED [facility] Stop: 07/20/20 23:00 Last Admin: 07/20/20 15:26 Dose: 125 mls/hr Documented by: Potassium Chloride/Sodium Chloride (Normal Saline With 40 Meq Kcl) 500 mls @ 50 mls/hr IV ASDIRECTED [facility] Potassium Chloride 10 meq/ (Premix) 100 mls @ 100 mls/hr IV Q1H [facility] Stop: 07/21/20 14:29 Last Admin: 07/21/20 15:58 Dose: 100 mls/hr Documented by: Ceftriaxone Sodium 2 gm/ (Sodium Chloride) 100 mls @ 200 mls/hr IV Q24H [facility] Stop: 07/28/20 11:29 Last Admin: 07/28/20 11:24 Dose: 200 mls/hr Documented by: Azithromycin 500 mg/ Sodium (Chloride) 250 mls @ 250 mls/hr IV Q24H [facility] Stop: 07/26/20 14:29 Last Admin: 07/26/20 14:08 Dose: 250 mls/hr Documented by: Sodium Chloride (Normal Saline) 100 mls @ 75 mls/hr IV ASDIRECTED [facility] Stop: 07/26/20 13:00 Iopamidol (Isovue-370 (76%)) 100 ml IVPUSH ONETIME ONE Stop: 07/26/20 10:55 Last Admin: 07/26/20 11:43 Dose: Not Given Documented by: Potassium Chloride (Klor-Con M20) 40 meq PO ONETIME ONE Stop: 07/20/20 21:01 Last Admin: 07/20/20 21:06 Dose: 40 meq Documented by: Potassium Chloride (Klor-Con M20) 40 meq PO ONETIME ONE Stop: 07/27/20 07:56 Last Admin: 07/27/20 09:30 Dose: 40 meq Documented by: Potassium Chloride (Klor-Con M20) 20 meq PO ONETIME ONE Stop: 07/27/20 09:16 Last Admin: 07/27/20 09:31 Dose: Not Given Documented by: Sodium Chloride (Saline Flush) 10 ml FLUSH ONETIME PRN PRN Reason: IV FLUSH Stop: 07/26/20 13:00 Theophylline (Theophylline Anhydrous) 300 mg PO DAILY [facility] Last Admin: 07/30/20 08:36 Dose: Not Given Documented by: - Exam Quality Assessment: Supplemental Oxygen (6 L per nasal cannula), DVT Prophylaxis (Lovenox) General: Alert, Oriented, Cooperative, Mild Distress, Sedated HEENT: Pupils Equal, Mucous Membr. Moist/[place] Neck: Supple, Trachea Midline. No: Lymphadenopathy Lungs: Normal Respiratory Effort, Decreased Breath Sounds, Crackles (Fine crackles to the bilateral bases), Wheezing (Expiratory wheeze noted left posterior) Cardiovascular: Regular Rate, Regular Rhythm, No Murmurs GI/Abdominal Exam: Normal Bowel Sounds, Soft, Non-Tender, No Distention (Male) Exam: Deferred Back Exam: Normal Inspection, Full Range of Motion Extremities: Normal Inspection, Normal Range of Motion, Non-Tender, No Pedal Edema, Normal Capillary Refill Peripheral Pulses: 2+: Radial (L), Radial (R), Dorsalis Pedis (L), Dorsalis Pedis (R) Skin: Warm, Dry, Intact Neurological: No New Focal Deficit Psy/Mental Status: Alert, Normal Affect, Normal Mood Sepsis Event Note - Evaluation Sepsis Screening Result: No Definite Risk - Focused Exam Vital Signs: Vital Signs Temp Pulse Resp BP Pulse Ox 07/30/20 07:56 98.2 F 20 135/91 H 07/30/20 06:50 92 L 07/30/20 06:45 87 L 07/30/20 04:08 97.9 F 87 15 134/68 93 L 07/30/20 00:00 72 96 07/29/20 21:57 92 L - Problem List & Annotations (1) COVID-19 SNOMED Code(s): 381261270 Code(s): U07.1 - COVID-19 Status: Acute Priority: High Current Visit: Yes (2) Hypokalemia SNOMED Code(s): 20082380 Code(s): E87.6 - HYPOKALEMIA Status: Acute Priority: High Current Visit: Yes (3) Hypoxia SNOMED Code(s): 762301158 Code(s): R09.02 - HYPOXEMIA Status: Acute Priority: High Current Visit: Yes (4) Pneumonia due to COVID-19 virus SNOMED Code(s): 614309167218342195 Code(s): U07.1 - COVID-19; J12.89 - OTHER VIRAL PNEUMONIA Status: Acute Priority: High Current Visit: Yes (5) Renal insufficiency SNOMED Code(s): 047481844, 944667254 Code(s): N28.9 - DISORDER OF KIDNEY AND URETER, UNSPECIFIED Status: Acute Priority: High Current Visit: Yes - Problem List Review Problem List Initiated/Reviewed/Updated: Yes - My Orders Last 24 Hours: My Active Orders 07/30/20 09:47 PROCALCITONIN [REF] Stat 07/31/20 05:11 C-REACTIVE PROTEIN [CHEM] AM CBC WITH AUTO DIFF [HEME] AM COMPREHENSIVE METABOLIC PN,CMP [CHEM] AM D-DIMER QUANTITATIVE [COAG] AM MAGNESIUM [CHEM] AM - Assessment Assessment:: I have seen and examined the patient independent of nurse practitioner Carlos King and I have discussed the case with her. I have reviewed and agree with the assessment and plan as outlined for this patient by her. Please see orders. 07/20/10 * 1 week history of weakness, general malaise, poor appetite, shortness of breath and diarrhea * History of exposure to COVID-19 * History of COPD * Chest x-ray shows lung choe show prominence to the pulmonary interstitium. Minimal groundglass airspace disease at the lower lung choe bilaterally. * The patient did receive 40 mEq of potassium IV in the ER. Lab results: * Platelet count 411 * Potassium 2.5 * Anion gap 19.5 * BUN 37 * Creatinine 1.6 * GFR 44 * Glucose 132 * LDH 516 * Troponin 0 0.066 * C-reactive protein 26.0 * Lactic acid 1.8 * Ferritin 1692 * BNP 261 * D-dimer 1.01 Arterial blood gases: * pH 7.51 * PCO2 29.5 * PO2 62.0 * HCO3 23.0 * Currently on 5 L per nasal cannula Vital signs: * Temperature 100.7 * Pulse 118 * Respiratory rate 36 * Blood pressure 149/86 * Pulse ox 75% on room air; 90% on 5 L per nasal cannula Plan: * Start remdesivir. The risks and benefits were discussed with the patient. I offered him the patient and caregiver EUA remdesivir fact sheet to read and review. I stated the drug has been approved by an emergency use authorization process and has not fully been FDA reviewed or approved. The patient meets the EUA requirements. I shared that the drug may cause liver abnormalities and infusion related side effects. Additionally, other side effects are possible but not shown as the drug has had limited studies. I discussed there are other potential treatment options that are not currently FDA approved to treat COVID-19. Offered opportunity to ask questions and all questions were answered. The patient voiced understanding and agreed to proceed with the treatment for himself. * Start dexamethasone * Give 2 units of convalescent plasma. Consent was obtained prior. I spoke with him to provide information about convalescent plasma for himself. I offered him the fax sheet for patients and parents/caregivers for COVID-19 convalescent plasma to read and review. I stated the therapy has been approved by an emergency youth authorization process and has not fully been FDA reviewed or approved. I shared potential risks from the therapy including transmission of blood-borne pathogens such as HIV and hepatitis C, allergic and transfusion related reactions, post transfusion purpura. Additionally theoretical risks including a phenomenon called antibody dependent enhancement of infection such as is seen in dengue or attenuation of an immune response that may make patients more susceptible to reinfection. I discussed there are other potential treatment options that are currently not FDA approved to treat COVID-19. Offered opportunity to ask questions and all questions were answered. The patient voiced understanding and agreed to proceed with the treatment for himself. * Incentive spirometry * RT to titrate oxygen * PRN albuterol * Monitor for hypoxemia * Monitor lab work and replace electrolytes as needed * Renally dose medications * Continue home statin * Dietary consult * services program manager and discharge planning consult * Theophylline level * Repeat troponin 07/21/2020 The patient is a 64-year-old gentleman who was still short of breath today. He is currently on dexamethasone and this will continue. He has also had conv alescent plasma. The patient will be kept at least enough to finish 5 days of remdesivir. Patient also had been hypokalemic and laboratory testing has been ordered and the patient will have electrolytes replaced as necessary. Continue with diet as tolerated. Encouraged to ambulate. 07/22/2020 The patient is a 64-year-old gentleman who has been tolerating the COVID-19 treatment well. The patient will be kept long enough to finish at least 5 days of remdesivir. I have advised the patient that he will need to go home with dexamethasone or equivalent. The patient's hypokalemia has resolved. I have ordered repeat laboratory studies for the morning to check the patient's electrolytes. He has been encouraged to continue with his current diet. I have encouraged the patient also to ambulate. 07/23/20 The patient is on day 4 of remdesivir and dexamethasone. Continues on high flow O2 with respiratory therapy attempting to titrate down. He on 60 L at 75% FiO2. Appetite remains poor he is however receiving protein supplements. He has been doing his incentive spirometer up to 1500. I encouraged him to be up in the chair 3 times daily with all meals and to start prone positioning. Will recheck lab work in the a.m. 07/24/20 Patient is on day 5 of remdesivir and dexamethasone. He does continue on high flow O2 at 60 L and 70%. Respiratory care continues to attempt to wean patient off of oxygen. Appetite remains poor encouraging patient to attempt to eat and consume 100% of protein supplements. Continues to use his incentive spirometer. Needs a lot of encouragement to get out of bed for meals. Did sleep in the prone position for a few hours last night. Vital signs remained stable and he has not had a fever in the past 24 hours. Nursing staff reports that patient is very weak when attempting to get out of bed. WBC 14.41 from 10.02 Platelet 795 from 6.25 D-dimer 0.95 from 0.77 Potassium 4.0 from 3.5 BUN 33 from 35 Creatinine 1.0 GFR greater than 60 C-reactive protein 4.9 from 7.7 Awaiting procalcitonin level Portable chest x-ray was obtained findings interval resolution of bibasilar opacities. Prominent interstitial changes in the right and left midlung/perihilar regions. No consolidation. 07/25/20 Continues to be on high flow O2, however respiratory care is titrating this down. He is on day 6 of dexamethasone. He is on day 3 of Zithromax and Rocephin. Appetite is still poor encouraging to eat and consume protein supplements and increase fluid intake. Has been using his incentive spirometer. Has been sleeping in the prone position and from side to side intermittently. Vital signs remained stable. WBC 12.45 Platelets 733 D-dimer 1.26 BUN 32 Creatinine 0.9 GFR greater than 60 C-reactive protein 2.7 Procalcitonin 0.46 07/26/20 Patient is on day 3 of Rocephin and Zithromax. He is on day 7 of dexamethasone. Continues to be on high flow O2. Appetite is poor consuming 100% of protein supplements sent from dietary. He has been using his incentive spirometer. Vital signs remained stable. He does need a lot of very strong encouragement to get out of bed, to work with physical therapy, and complete basic ADLs. WBC 16.01 up from 12.45 Platelet count 987 up from 733 D-dimer 2.02 up from 1.26 BUN 29 down from 32 Creatinine 1.0 up from 0.9 GFR greater than 60 Magnesium 2.0 C-reactive protein 2.1 down from 2.7 07/27/20 Day 4 of Rocephin. Day 8 of dexamethasone Continues on high flow O2 at 50 L and FiO2 of 40%. Appetite remains poor. States he still does have a bit of a cough without sputum production More agreeable to working with therapies and nursing staff today. Vital signs remained stable. White blood cell 12.36 down from 16.01 Hemoglobin 11.4 down from 14.1 Platelet 783 down from 987 D-dimer 1.43 down from 2.02 BUN 23 down from 29 Creatinine 0.8 down from 1.0 GFR greater than 60 C-reactive protein 2.1 07/28/2020 The patient is doing well except he is requiring high flow oxygen. This will be continued as necessary to keep his saturations around 90 to 92%. The patient is also an antibiotics and these will be continued. He is on dexamethasone day 9. The patient will continue to have his vital signs monitored. The patient has been encouraged to ambulate around the room. We will continue with the DVT prophylaxis. The patient will be appropriate for discharge once his oxygen levels have improved significantly to require less oxygen. Repeat laboratory studies have been ordered. 07/29/2020 The patient is doing well he is requiring high flow oxygen to help maintain his saturations around 90%. The patient will be kept on Breathing treatments that are consisted of fluticasone and albuterol. He is also receiving breathing treatments with theophylline. The patient will have a chest x-ray tomorrow. I have also ordered repeat laboratory studies for tomorrow as well. Patient will continue to ambulate as necessary. I anticipate that if the patient's oxygen saturations have improved considerably he should be appropriate for discharge 1 to 2 days. The patient will also be kept on DVT prophylaxis. Patient's D-dimer has remained high and he will likely need to have anticoagulation if he goes home tomorrow. 07/30/20 Patient reports that he is feeling better today. States that he is coughing a small amount of sputum. Still reports a poor appetite as he says he cannot really taste most foods. Is down to 6 L per nasal cannula on the oxygen. Has completed Covid treatment with remdesivir, dexamethasone x 10 days, and convalescent plasma. Has also been treated for pneumonia with 5 days of Rocephin IV and 3 days of Zithromax IV. States he is using his incentive spirometer. Lab work reveals:CBC 16.52 up from 14.21, platelet count 840 up from 768, D-dimer 2.77 up from 1.41, C-reactive protein 1.3 down from 1.8. Chest x-ray from today reveals new linear interstitial opacity in left lung base could be atelectasis or infiltrate. Stable linear interstitial opacities in both mid lungs. - Plan Plan:: 07/30/20 Continue nebulizers. Continue incentive spirometer and Acapella. RT will continue to titrate oxygen down. Encourage activity in the room. Patient's white count and platelets are again elevated today, I suspect that this is due to an inflammatory response. Overall the patient reports that he is feeling better. I have ordered a procalcitonin level from today's lab work and we will see what that shows. Patient is anxious to go home however I cannot send him home until his oxygen needs are significantly decreased to at least 2 L. He is currently receiving Lovenox every 12 hours for DVT prophylaxis and he is on full dose aspirin for the elevated platelet count. He has had no fevers in the last 24 hours and his vital signs remained stable otherwise. Hopefully plan for discharge in the next day or 2 on home oxygen.
[2020-07-30] MEDS: Simvastatin 20 MG Tab PO SCH (20:07)
[2020-07-31] MEDS: Pantoprazole 40 MG Tab.CR PO SCH (06:25)
[2020-07-31] MEDS: Albuterol 6.7 GM Inhaler INH PRN ×2 (08:00→20:31)
[2020-07-31] MEDS: Glycopyrrolate 15.6 MCG Cap.W.Dev Kit of 6 IH SCH ×2 (08:00→20:31)
[2020-07-31] MEDS: Formoterol/Mometasone 200-5 MCG 13 GM Inhaler INH SCH ×2 (08:00→20:31)
[2020-07-31] MEDS: Aspirin 325 MG Tab.EC PO SCH (08:25)
[2020-07-31] MEDS: Potassium Chloride 20 MEQ Tab.ER PO SCH ×2 (08:25→12:28)
[2020-07-31] MEDS: Fluticasone Propionate Nasal Spray 16 GM Bottle NASBOTH SCH ×2 (08:26→20:24)
[2020-07-31] MEDS: Theophylline 300 MG Tab.ER PO SCH (08:26)
[2020-07-31] MEDS: Enoxaparin 40 MG/0.4 ML Syringe SUBCUT SCH ×2 (08:26→20:24)
--- NOTE | 2020-07-31 11:34 | PCM.PN ---
- General Info Date of Service: 07/31/20 Admission Dx/Problem (Free Text): Admission Diagnosis/Problem Admission Diagnosis/Problem Hypoxia Subjective Update: States that he feels better today and is requesting to go home today. His mood appears better. He also states that his appetite is just starting to come back. Functional Status: Reports: Pain Controlled, Tolerating Diet, Ambulating, Urinating, Incentive Spirometry - Review of Systems General: Reports: No Symptoms, Appetite HEENT: Reports: No Symptoms, Glasses Pulmonary: Reports: No Symptoms Cardiovascular: Reports: No Symptoms Gastrointestinal: Reports: No Symptoms Genitourinary: Reports: No Symptoms Musculoskeletal: Reports: No Symptoms Skin: Reports: No Symptoms Neurological: Reports: No Symptoms Psychiatric: Reports: No Symptoms - Patient Data Vitals - Most Recent: Last Vital Signs Temp 97.5 F 07/31/20 07:32 Pulse 84 07/31/20 06:25 Resp 20 07/31/20 07:32 BP 129/87 07/31/20 07:32 Pulse Ox 92 L 07/31/20 08:22 Weight - Most Recent: 181 lb 8 oz I&O - Last 24 Hours: Intake & Output 07/30/20 07/31/20 07/31/20 22:59 06:59 14:59 Intake Total 880 400 Balance 880 400 Lab Results Last 24 Hours: Laboratory Results - last 24 hr 07/31/20 07/31/20 07/31/20 Range/Units 04:50 04:50 04:50 WBC 12.73 H (4.23-9.07) K/mm3 RBC 4.12 L (4.63-6.08) M/mm3 Hgb 11.9 L (13.7-17.5) gm/dl Hct 37.9 L (40.1-51.0) % MCV 92.0 (79.0-92.2) fl MCH 28.9 (25.7-32.2) pg MCHC 31.4 L (32.2-35.5) g/dl RDW Std Deviation 42.7 (35.1-43.9) fL Plt Count 732 H D (163-337) K/mm3 MPV 9.0 L (9.4-12.3) fl Neut % (Auto) 78.6 H (34.0-67.9) % Lymph % (Auto) 11.7 L (21.8-53.1) % [place] % (Auto) 7.3 (5.3-12.2) % Eos % (Auto) 0.2 L (0.8-7.0) Baso % (Auto) 0.1 (0.1-1.2) % Neut # (Auto) 10.00 H (1.78-5.38) K/mm3 Lymph # (Auto) 1.49 (1.32-3.57) K/mm3 [place] # (Auto) 0.93 H (0.30-0.82) K/mm3 Eos # (Auto) 0.03 L (0.04-0.54) K/mm3 Baso # (Auto) 0.01 (0.01-0.08) K/mm3 Manual Slide Review Abnormal smear D-Dimer, Quantitative 1.38 H (0.19-0.50) mg/L Sodium 141 (136-145) mEq/L Potassium 3.4 L (3.5-5.1) mEq/L Chloride 105 (98-107) mEq/L Carbon Dioxide 28 (21-32) mEq/L Anion Gap 11.4 (5-15) BUN 18 (7-18) mg/dL Creatinine 0.9 (0.7-1.3) mg/dL Est Cr Clr Drug Dosing 75.81 mL/min Estimated GFR (MDRD) > 60 (>60) mL/min BUN/Creatinine Ratio 20.0 H (14-18) Glucose 84 (80-115) mg/dL Calcium 8.5 (8.5-10.1) mg/dL Magnesium 2.0 (1.8-2.4) mg/dl Total Bilirubin 0.5 (0.2-1.0) mg/dL AST 41 H (15-37) U/L ALT 78 H (16-63) U/L Alkaline Phosphatase 61 (46-116) U/L C-Reactive Protein 2.7 H* (<1.0) mg/dL Total Protein 5.8 L (6.4-8.2) g/dl Albumin 2.1 L (3.4-5.0) g/dl Globulin 3.7 gm/dL Albumin/Globulin Ratio 0.6 L (1-2) Med Orders - Current: Current Medications Acetaminophen (Tylenol) 650 mg PO Q4H PRN PRN Reason: Pain (Mild 1-3)/fever Albuterol (Proventil Neb Soln) 2.5 mg NEB Q2H PRN PRN Reason: Shortness Of Breath/wheezing Albuterol (Proventil Hfa) 0 gm INH Q4H PRN PRN Reason: Wheezing Last Admin: 07/31/20 08:00 Dose: 2 puff Documented by: Aspirin (Ecotrin) 325 mg PO DAILY [facility] Last Admin: 07/31/20 08:25 Dose: 325 mg Documented by: Enoxaparin Sodium (Lovenox) 40 mg SUBCUT Q12H [facility] Last Admin: 07/31/20 08:26 Dose: 40 mg Documented by: Fluticasone Propionate (Flonase) 0 gm NASBOTH BID [facility] Last Admin: 07/31/20 08:26 Dose: 2 spray Documented by: Glycopyrrolate (Seebri Neohaler) 15.6 mcg IH BID [facility] Last Admin: 07/31/20 08:00 Dose: 1 cap.ec Documented by: Mometasone Furoate/Formoterol Fumar (Dulera 200-5 Mcg) 0 puff INH BID [facility] Last Admin: 07/31/20 08:00 Dose: 2 puff Documented by: Ondansetron HCl (Zofran) 4 mg IV Q6H PRN PRN Reason: Nausea/Vomiting Last Admin: 07/23/20 00:35 Dose: 4 mg Documented by: Pantoprazole Sodium (Protonix) 40 mg PO DAILY@0700 [facility] Last Admin: 07/31/20 06:25 Dose: 40 mg Documented by: Potassium Chloride (Klor-Con M20) 40 meq PO Q4H [facility] Stop: 07/31/20 12:01 Last Admin: 07/31/20 08:25 Dose: 40 meq Documented by: Simvastatin (Zocor) 20 mg PO BEDTIME [facility] Last Admin: 07/30/20 20:07 Dose: 20 mg Documented by: Sodium Chloride (Saline Flush) 10 ml FLUSH ASDIRECTED PRN PRN Reason: Keep Vein Open Last Admin: 07/20/20 08:50 Dose: 10 ml Documented by: Theophylline (Theophylline Anhydrous) 600 mg PO DAILY [facility] Last Admin: 07/31/20 08:26 Dose: 600 mg Documented by: Discontinued Medications Aspirin (Halfprin) 81 mg PO DAILY [facility] Last Admin: 07/26/20 08:24 Dose: 81 mg Documented by: Aspirin (Halfprin) 243 mg PO ONETIME ONE Stop: 07/26/20 11:01 Last Admin: 07/26/20 12:37 Dose: 243 mg Documented by: Dexamethasone (Dexamethasone) 6 mg PO DAILY [facility] Stop: 07/29/20 09:01 Last Admin: 07/29/20 08:55 Dose: 6 mg Documented by: Enoxaparin Sodium (Lovenox) 40 mg SUBCUT Q12H [facility] Last Admin: 07/24/20 00:10 Dose: 40 mg Documented by: Potassium Chloride 10 meq/ (Premix) 100 mls @ 100 mls/hr IV Q1H [facility] Stop: 07/20/20 13:59 Last Admin: 07/20/20 15:20 Dose: 100 mls/hr Documented by: Sodium Chloride (Normal Saline) 1,000 mls @ 150 mls/hr IV ASDIRECTED [facility] Last Admin: 07/20/20 10:17 Dose: 150 mls/hr Documented by: Remdesivir 200 mg/ Sodium (Chloride) 250 mls @ 250 mls/hr IV ONETIME ONE Stop: 07/20/20 13:29 Last Admin: 07/20/20 13:00 Dose: 250 mls/hr Documented by: Remdesivir 100 mg/ Sodium (Chloride) 100 mls @ 100 mls/hr IV Q24H [facility] Stop: 07/24/20 13:29 Last Admin: 07/24/20 12:33 Dose: 100 mls/hr Documented by: Sodium Chloride (Normal Saline) 250 mls @ 125 mls/hr IV ASDIRECTED [facility] Stop: 07/20/20 23:00 Last Admin: 07/20/20 15:26 Dose: 125 mls/hr Documented by: Potassium Chloride/Sodium Chloride (Normal Saline With 40 Meq Kcl) 500 mls @ 50 mls/hr IV ASDIRECTED [facility] Potassium Chloride 10 meq/ (Premix) 100 mls @ 100 mls/hr IV Q1H [facility] Stop: 07/21/20 14:29 Last Admin: 07/21/20 15:58 Dose: 100 mls/hr Documented by: Ceftriaxone Sodium 2 gm/ (Sodium Chloride) 100 mls @ 200 mls/hr IV Q24H [facility] Stop: 07/28/20 11:29 Last Admin: 07/28/20 11:24 Dose: 200 mls/hr Documented by: Azithromycin 500 mg/ Sodium (Chloride) 250 mls @ 250 mls/hr IV Q24H [facility] Stop: 07/26/20 14:29 Last Admin: 07/26/20 14:08 Dose: 250 mls/hr Documented by: Sodium Chloride (Normal Saline) 100 mls @ 75 mls/hr IV ASDIRECTED [facility] Stop: 07/26/20 13:00 Iopamidol (Isovue-370 (76%)) 100 ml IVPUSH ONETIME ONE Stop: 07/26/20 10:55 Last Admin: 07/26/20 11:43 Dose: Not Given Documented by: Potassium Chloride (Klor-Con M20) 40 meq PO ONETIME ONE Stop: 07/20/20 21:01 Last Admin: 07/20/20 21:06 Dose: 40 meq Documented by: Potassium Chloride (Klor-Con M20) 40 meq PO ONETIME ONE Stop: 07/27/20 07:56 Last Admin: 07/27/20 09:30 Dose: 40 meq Documented by: Potassium Chloride (Klor-Con M20) 20 meq PO ONETIME ONE Stop: 07/27/20 09:16 Last Admin: 07/27/20 09:31 Dose: Not Given Documented by: Sodium Chloride (Saline Flush) 10 ml FLUSH ONETIME PRN PRN Reason: IV FLUSH Stop: 07/26/20 13:00 Theophylline (Theophylline Anhydrous) 300 mg PO DAILY [facility] Last Admin: 07/30/20 19:41 Dose: Not Given Documented by: - Exam Quality Assessment: Supplemental Oxygen (3.5 L), DVT Prophylaxis General: Alert, Oriented, Cooperative, Mild Distress HEENT: Pupils Equal, Pupils Reactive, Mucous Membr. Moist/[place] Neck: Supple, Trachea Midline. No: Lymphadenopathy Lungs: Clear to Auscultation, Normal Respiratory Effort Cardiovascular: Regular Rate, Regular Rhythm, No Murmurs GI/Abdominal Exam: Normal Bowel Sounds, Soft, Non-Tender, No Distention (Male) Exam: Deferred Back Exam: Normal Inspection, Full Range of Motion Extremities: Normal Inspection, Normal Range of Motion, Non-Tender, No Pedal Edema, Normal Capillary Refill Peripheral Pulses: 2+: Radial (L), Radial (R), Dorsalis Pedis (L), Dorsalis Pedis (R) Skin: Warm, Dry, Intact Neurological: No New Focal Deficit Psy/Mental Status: Alert, Normal Affect, Normal Mood Sepsis Event Note - Evaluation Sepsis Screening Result: No Definite Risk - Focused Exam Vital Signs: Vital Signs Temp Pulse Resp BP Pulse Ox Pulse Ox 07/31/20 08:22 92 L 07/31/20 07:32 97.5 F 20 129/87 07/31/20 06:25 97.9 F 84 18 133/88 94 L 07/31/20 05:21 94 L - Problem List & Annotations (1) COVID-19 SNOMED Code(s): 794510499 Code(s): U07.1 - COVID-19 Status: Acute Priority: High Current Visit: Yes (2) Hypokalemia SNOMED Code(s): 23901311 Code(s): E87.6 - HYPOKALEMIA Status: Acute Priority: High Current Visit: Yes (3) Hypoxia SNOMED Code(s): 716513226 Code(s): R09.02 - HYPOXEMIA Status: Acute Priority: High Current Visit: Yes (4) Pneumonia due to COVID-19 virus SNOMED Code(s): 626157873996290614 Code(s): U07.1 - COVID-19; J12.89 - OTHER VIRAL PNEUMONIA Status: Acute Priority: High Current Visit: Yes (5) Renal insufficiency SNOMED Code(s): 456348248, 905432042 Code(s): N28.9 - DISORDER OF KIDNEY AND URETER, UNSPECIFIED Status: Acute Priority: High Current Visit: Yes - Problem List Review Problem List Initiated/Reviewed/Updated: Yes - My Orders Last 24 Hours: My Active Orders 07/31/20 08:00 Potassium Chloride [Klor-Con M20] 40 meq PO Q4H - Assessment Assessment:: I have seen and examined the patient independent of nurse practitioner Carlos King and I have discussed the case with her. I have reviewed and agree with the assessment and plan as outlined for this patient by her. Please see orders. 07/20/10 * 1 week history of weakness, general malaise, poor appetite, shortness of breath and diarrhea * History of exposure to COVID-19 * History of COPD * Chest x-ray shows lung choe show prominence to the pulmonary interstitium. Minimal groundglass airspace disease at the lower lung choe bilaterally. * The patient did receive 40 mEq of potassium IV in the ER. Lab results: * Platelet count 411 * Potassium 2.5 * Anion gap 19.5 * BUN 37 * Creatinine 1.6 * GFR 44 * Glucose 132 * LDH 516 * Troponin 0 0.066 * C-reactive protein 26.0 * Lactic acid 1.8 * Ferritin 1692 * BNP 261 * D-dimer 1.01 Arterial blood gases: * pH 7.51 * PCO2 29.5 * PO2 62.0 * HCO3 23.0 * Currently on 5 L per nasal cannula Vital signs: * Temperature 100.7 * Pulse 118 * Respiratory rate 36 * Blood pressure 149/86 * Pulse ox 75% on room air; 90% on 5 L per nasal cannula Plan: * Start remdesivir. The risks and benefits were discussed with the patient. I offered him the patient and caregiver EUA remdesivir fact sheet to read and review. I stated the drug has been approved by an emergency use authorization process and has not fully been FDA reviewed or approved. The patient meets the EUA requirements. I shared that the drug may cause liver abnormalities and infusion related side effects. Additionally, other side effects are possible but not shown as the drug has had limited studies. I discussed there are other potential treatment options that are not currently FDA approved to treat COVID-19. Offered opportunity to ask questions and all questions were answered. The patient voiced understanding and agreed to proceed with the treatment for himself. * Start dexamethasone * Give 2 units of convalescent plasma. Consent was obtained prior. I spoke with him to provide information about convalescent plasma for himself. I offered him the fax sheet for patients and parents/caregivers for COVID-19 convalescent plasma to read and review. I stated the therapy has been approved by an emergency youth authorization process and has not fully been FDA reviewed or approved. I shared potential risks from the therapy including transmission of blood-borne pathogens such as HIV and hepatitis C, allergic and transfusion related reactions, post transfusion purpura. Additionally theoretical risks including a phenomenon called antibody dependent enhancement of infection such as is seen in dengue or attenuation of an immune response that may make patients more susceptible to reinfection. I discussed there are other potential treatment options that are currently not FDA approved to treat COVID-19. Offered opportunity to ask questions and all questions were answered. The patient voiced understanding and agreed to proceed with the todd atment for himself. * Incentive spirometry * RT to titrate oxygen * PRN albuterol * Monitor for hypoxemia * Monitor lab work and replace electrolytes as needed * Renally dose medications * Continue home statin * Dietary consult * software engineer web services and discharge planning consult * Theophylline level * Repeat troponin 07/21/2020 The patient is a 64-year-old gentleman who was still short of breath today. He is currently on dexamethasone and this will continue. He has also had convalescent plasma. The patient will be kept at least enough to finish 5 days of remdesivir. Patient also had been hypokalemic and laboratory testing has been ordered and the patient will have electrolytes replaced as necessary. Continue with diet as tolerated. Encouraged to ambulate. 07/22/2020 The patient is a 64-year-old gentleman who has been tolerating the COVID-19 treatment well. The patient will be kept long enough to finish at least 5 days of remdesivir. I have advised the patient that he will need to go home with dexamethasone or equivalent. The patient's hypokalemia has resolved. I have ordered repeat laboratory studies for the morning to check the patient's electrolytes. He has been encouraged to continue with his current diet. I have encouraged the patient also to ambulate. 07/23/20 The patient is on day 4 of remdesivir and dexamethasone. Continues on high flow O2 with respiratory therapy attempting to titrate down. He on 60 L at 75% FiO2. Appetite remains poor he is however receiving protein supplements. He has been doing his incentive spirometer up to 1500. I encouraged him to be up in the chair 3 times daily with all meals and to start prone positioning. Will recheck lab work in the a.m. 07/24/20 Patient is on day 5 of remdesivir and dexamethasone. He does continue on high flow O2 at 60 L and 70%. Respiratory care continues to attempt to wean patient off of oxygen. Appetite remains poor encouraging patient to attempt to eat and consume 100% of protein supplements. Continues to use his incentive spirometer. Needs a lot of encouragement to get out of bed for meals. Did sleep in the prone position for a few hours last night. Vital signs remained stable and he has not had a fever in the past 24 hours. Nursing staff reports that patient is very weak when attempting to get out of bed. WBC 14.41 from 10.02 Platelet 795 from 6.25 D-dimer 0.95 from 0.77 Potassium 4.0 from 3.5 BUN 33 from 35 Creatinine 1.0 GFR greater than 60 C-reactive protein 4.9 from 7.7 Awaiting procalcitonin level Portable chest x-ray was obtained findings interval resolution of bibasilar opacities. Prominent interstitial changes in the right and left midlung/perihilar regions. No consolidation. 07/25/20 Continues to be on high flow O2, however respiratory care is titrating this down. He is on day 6 of dexamethasone. He is on day 3 of Zithromax and Rocephin. Appetite is still poor encouraging to eat and consume protein supplements and increase fluid intake. Has been using his incentive spirometer. Has been sleeping in the prone position and from side to side intermittently. Vital signs remained stable. WBC 12.45 Platelets 733 D-dimer 1.26 BUN 32 Creatinine 0.9 GFR greater than 60 C-reactive protein 2.7 Procalcitonin 0.46 07/26/20 Patient is on day 3 of Rocephin and Zithromax. He is on day 7 of dexamethasone. Continues to be on high flow O2. Appetite is poor consuming 100% of protein supplements sent from dietary. He has been using his incentive spirometer. Vital signs remained stable. He does need a lot of very strong encouragement to get out of bed, to work with physical therapy, and complete basic ADLs. WBC 16.01 up from 12.45 Platelet count 987 up from 733 D-dimer 2.02 up from 1.26 BUN 29 down from 32 Creatinine 1.0 up from 0.9 GFR greater than 60 Magnesium 2.0 C-reactive protein 2.1 down from 2.7 07/27/20 Day 4 of Rocephin. Day 8 of dexamethasone Continues on high flow O2 at 50 L and FiO2 of 40%. Appetite remains poor. States he still does have a bit of a cough without sputum production More agreeable to working with therapies and nursing staff today. Vital signs remained stable. White blood cell 12.36 down from 16.01 Hemoglobin 11.4 down from 14.1 Platelet 783 down from 987 D-dimer 1.43 down from 2.02 BUN 23 down from 29 Creatinine 0.8 down from 1.0 GFR greater than 60 C-reactive protein 2.1 07/28/2020 The patient is doing well except he is requiring high flow oxygen. This will be continued as necessary to keep his saturations around 90 to 92%. The patient is also an antibiotics and these will be continued. He is on dexamethasone day 9. The patient will continue to have his vital signs monitored. The patient has been encouraged to ambulate around the room. We will continue with the DVT prophylaxis. The patient will be appropriate for discharge once his oxygen levels have improved significantly to require less oxygen. Repeat laboratory studies have been ordered. 07/29/2020 The patient is doing well he is requiring high flow oxygen to help maintain his saturations around 90%. The patient will be kept on Breathing treatments that are consisted of fluticasone and albuterol. He is also receiving breathing treatments with theophylline. The patient will have a chest x-ray tomorrow. I have also ordered repeat laboratory studies for tomorrow as well. Patient will continue to ambulate as necessary. I anticipate that if the patient's oxygen saturations have improved considerably he should be appropriate for discharge 1 to 2 days. The patient will also be kept on DVT prophylaxis. Patient's D-dimer has remained high and he will likely need to have anticoagulation if he goes home tomorrow. 07/30/20 Patient reports that he is feeling better today. States that he is coughing a small amount of sputum. Still reports a poor appetite as he says he cannot really taste most foods. Is down to 6 L per nasal cannula on the oxygen. Has completed Covid treatment with remdesivir, dexamethasone x 10 days, and convalescent plasma. Has also been treated for pneumonia with 5 days of Rocephin IV and 3 days of Zithromax IV. States he is using his incentive sp irometer. Lab work reveals:CBC 16.52 up from 14.21, platelet count 840 up from 768, D-dimer 2.77 up from 1.41, C-reactive protein 1.3 down from 1.8. Chest x- ray from today reveals new linear interstitial opacity in left lung base could be atelectasis or infiltrate. Stable linear interstitial opacities in both mid lungs. 07/31/20 Patient reports that he feels good today. Currently he is on 3-1/2 L per nasal cannula. He is requesting to go home today. Denies a cough. Reports that his appetite is starting to return a little bit. Has been using his incentive spirometer and ambulating in the room. Has also been working with physical therapy. Vital signs are unremarkable and patient has been afebrile. Current lab work reveals: WBC 12.73, platelet count 732, D-dimer 1.38, potassium 3.4, C- reactive protein 2.7. - Plan Plan:: 07/30/20 Continue nebulizers. Continue incentive spirometer and Acapella. RT will continue to titrate oxygen down. Encourage activity in the room. Patient's white count and platelets are again elevated today, I suspect that this is due to an inflammatory response. Overall the patient reports that he is feeling better. I have ordered a procalcitonin level from today's lab work and we will see what that shows. Patient is anxious to go home however I cannot send him home until his oxygen needs are significantly decreased to at least 2 L. He is currently receiving Lovenox every 12 hours for DVT prophylaxis and he is on full dose aspirin for the elevated platelet count. He has had no fevers in the last 24 hours and his vital signs remained stable otherwise. Hopefully plan for discharge in the next day or 2 on home oxygen. 07/31/20 Will potentially look at a discharge for tomorrow pending that we can get the patient titrated down below 3 L of oxygen. Patient will likely be going home on home oxygen. Continue incentive spirometer. RT and nursing staff to continue working to titrate patient's oxygen. Will continue Lovenox every 12 hours for DVT prophylaxis. Continue full dose aspirin for elevated platelet count. Replace potassium orally today. Continue to monitor vital signs and intake and output. Will repeat lab work in the a.m.
[2020-07-31] MEDS: Simvastatin 20 MG Tab PO SCH (20:24)
[2020-08-01] MEDS: Pantoprazole 40 MG Tab.CR PO SCH (06:46)
[2020-08-01] MEDS: Formoterol/Mometasone 200-5 MCG 13 GM Inhaler INH SCH (08:00)
[2020-08-01] MEDS: Glycopyrrolate 15.6 MCG Cap.W.Dev Kit of 6 IH SCH (08:00)
[2020-08-01] MEDS: Albuterol 6.7 GM Inhaler INH PRN (08:00)
[2020-08-01] MEDS: Enoxaparin 40 MG/0.4 ML Syringe SUBCUT SCH (08:41)
[2020-08-01] MEDS: Aspirin 325 MG Tab.EC PO SCH (08:41)
[2020-08-01] MEDS: Theophylline 300 MG Tab.ER PO SCH (08:42)
[2020-08-01] MEDS: Fluticasone Propionate Nasal Spray 16 GM Bottle NASBOTH SCH (08:42)
--- NOTE | 2020-08-01 08:48 | PCM.DCSUM1 ---
Discharge Summary - Hospital Course HPI Initial Comments: The patient presents with shortness of breath, fever and generalized weakness. The patient's is COVID 19 positive. He states that his [id number] is also positive for COVID and was working with him in close contact about 2 weeks ago. He states he started feeling unwell about 7 days ago. Generalized fatigue and body aches. He denies headache and loss of taste or smell he also denies sore throat. However he states he does have a persistent nonproductive cough and diarrhea. He has also had a poor appetite. Denies any fever or chills. He got tested on Thursday and does not have results back yet. The patient has COPD. He has been more short of breath since Thursday. He is using his inhalers and it is not helping. He is not on oxygen at home. His oxygen saturations were 75% when he walked back. He has no chest pain. He has no abdominal pain. He does not have an appetite. Diagnosis: Stroke: No - Discharge Data Discharge Date: 08/01/20 (Admit date: 07/20/20) Discharge Disposition: Home, Self-Care 01 Condition: Good - Referral to Home Health Primary Care Physician: Serjio Pierce MD - Discharge Diagnosis/Problem(s) (1) COVID-19 SNOMED Code(s): 747572997 ICD Code: U07.1 - COVID-19 Status: Acute Priority: High Current Visit: Yes (2) Hypokalemia SNOMED Code(s): 20686937 ICD Code: E87.6 - HYPOKALEMIA Status: Acute Priority: High Current Visit: Yes (3) Hypoxia SNOMED Code(s): 614574566 ICD Code: R09.02 - HYPOXEMIA Status: Acute Priority: High Current Visit: Yes (4) Pneumonia due to COVID-19 virus SNOMED Code(s): 260234008326457783 ICD Code: U07.1 - COVID-19; J12.89 - OTHER VIRAL PNEUMONIA Status: Acute Priority: High Current Visit: Yes (5) Renal insufficiency SNOMED Code(s): 824606323, 893058662 ICD Code: N28.9 - DISORDER OF KIDNEY AND URETER, UNSPECIFIED Status: Acute Priority: High Current Visit: Yes - Patient Summary/Data Consults: Consultations 07/20/20 11:43 Consult to Dust Collector Attendant [CONS] Routine Consult to Spiritual Care [CONS] Routine Respiratory Care Assess and Treatment [CONS] Routine 07/24/20 10:49 PT Evaluation and Treatment [CONS] Routine 07/24/20 10:50 OT Evaluation and Treatment [CONS] Routine Hospital Course: I have seen and examined the patient independent of nurse practitioner Carlos rogers and I have discussed the case with her. I have reviewed and agree with the assessment and plan as outlined for this patient by her. Please see orders. 07/20/10 * 1 week history of weakness, general malaise, poor appetite, shortness of breath and diarrhea * History of exposure to COVID-19 * History of COPD * Chest x-ray shows lung choe show prominence to the pulmonary interstitium. Minimal groundglass airspace disease at the lower lung choe bilaterally. * The patient did receive 40 mEq of potassium IV in the ER. Lab results: * Platelet count 411 * Potassium 2.5 * Anion gap 19.5 * BUN 37 * Creatinine 1.6 * GFR 44 * Glucose 132 * LDH 516 * Troponin 0 0.066 * C-reactive protein 26.0 * Lactic acid 1.8 * Ferritin 1692 * BNP 261 * D-dimer 1.01 Arterial blood gases: * pH 7.51 * PCO2 29.5 * PO2 62.0 * HCO3 23.0 * Currently on 5 L per nasal cannula Vital signs: * Temperature 100.7 * Pulse 118 * Respiratory rate 36 * Blood pressure 149/86 * Pulse ox 75% on room air; 90% on 5 L per nasal cannula Plan: * Start remdesivir. The risks and benefits were discussed with the patient. I offered him the patient and caregiver EUA remdesivir fact sheet to read and review. I stated the drug has been approved by an emergency use authorization process and has not fully been FDA reviewed or approved. The patient meets the EUA requirements. I shared that the drug may cause liver abnormalities and infusion related side effects. Additionally, other side effects are possible but not shown as the drug has had limited studies. I discussed there are other potential treatment options that are not currently FDA approved to treat COVID-19. Offered opportunity to ask questions and all questions were answered. The patient voiced understanding and agreed to proceed with the treatment for himself. * Start dexamethasone * Give 2 units of convalescent plasma. Consent was obtained prior. I spoke with him to provide information about convalescent plasma for himself. I offered him the fax sheet for patients and parents/caregivers for COVID-19 convalescent plasma to read and review. I stated the therapy has been approved by an emergency youth authorization process and has not fully been FDA reviewed or approved. I shared potential risks from the therapy including transmission of blood-borne pathogens such as HIV and hepatitis C, allergic and transfusion related reactions, post transfusion purpura. Additionally theoretical risks including a phenomenon called antibody dependent enhancement of infection such as is seen in dengue or attenuation of an immune response that may make patients more susceptible to reinfection. I discussed there are other potential treatment options that are currently not FDA approved to treat COVID-19. Offered opportunity to ask questions and all questions were answered. The patient voiced understanding and agreed to proceed with the treatment for himself. * Incentive spirometry * RT to titrate oxygen * PRN albuterol * Monitor for hypoxemia * Monitor lab work and replace electrolytes as needed * Renally dose medications * Continue home statin * Dietary consult * health services manager and discharge planning consult * Theophylline level * Repeat troponin 07/21/2020 The patient is a 64-year-old gentleman who was still short of breath today. He is currently on dexamethasone and this will continue. He has also had convalescent plasma. The patient will be kept at least enough to finish 5 days of remdesivir. Patient also had been hypokalemic and laboratory testing has been ordered and the patient will have electrolytes replaced as necessary. Continue with diet as tolerated. Encouraged to ambulate. 07/22/2020 The patient is a 64-year-old gentleman who has been tolerating the COVID-19 treatment well. The patient will be kept long enough to finish at least 5 days of remdesivir. I have advised the patient that he will need to go home with dexamethasone or equivalent. The patient's hypokalemia has resolved. I have ordered repeat laboratory studies for the morning to check the patient's el ectrolytes. He has been encouraged to continue with his current diet. I have encouraged the patient also to ambulate. 07/23/20 The patient is on day 4 of remdesivir and dexamethasone. Continues on high flow O2 with respiratory therapy attempting to titrate down. He on 60 L at 75% FiO2. Appetite remains poor he is however receiving protein supplements. He has been doing his incentive spirometer up to 1500. I encouraged him to be up in the chair 3 times daily with all meals and to start prone positioning. Will recheck lab work in the a.m. 07/24/20 Patient is on day 5 of remdesivir and dexamethasone. He does continue on high flow O2 at 60 L and 70%. Respiratory care continues to attempt to wean patient off of oxygen. Appetite remains poor encouraging patient to attempt to eat and consume 100% of protein supplements. Continues to use his incentive spirometer. Needs a lot of encouragement to get out of bed for meals. Did sleep in the prone position for a few hours last night. Vital signs remained stable and he has not had a fever in the past 24 hours. Nursing staff reports that patient is very weak when attempting to get out of bed. WBC 14.41 from 10.02 Platelet 795 from 6.25 D-dimer 0.95 from 0.77 Potassium 4.0 from 3.5 BUN 33 from 35 Creatinine 1.0 GFR greater than 60 C-reactive protein 4.9 from 7.7 Awaiting procalcitonin level Portable chest x-ray was obtained findings interval resolution of bibasilar opacities. Prominent interstitial changes in the right and left midlung/perihilar regions. No consolidation. 07/25/20 Continues to be on high flow O2, however respiratory care is titrating this down. He is on day 6 of dexamethasone. He is on day 3 of Zithromax and Rocephin. Appetite is still poor encouraging to eat and consume protein supplements and increase fluid intake. Has been using his incentive spirometer. Has been sleeping in the prone position and from side to side intermittently. Vital signs remained stable. WBC 12.45 Platelets 733 D-dimer 1.26 BUN 32 Creatinine 0.9 GFR greater than 60 C-reactive protein 2.7 Procalcitonin 0.46 07/26/20 Patient is on day 3 of Rocephin and Zithromax. He is on day 7 of dexamethasone. Continues to be on high flow O2. Appetite is poor consuming 100% of protein supplements sent from dietary. He has been using his incentive spirometer. Vital signs remained stable. He does need a lot of very strong encouragement to get out of bed, to work with physical therapy, and complete basic ADLs. WBC 16.01 up from 12.45 Platelet count 987 up from 733 D-dimer 2.02 up from 1.26 BUN 29 down from 32 Creatinine 1.0 up from 0.9 GFR greater than 60 Magnesium 2.0 C-reactive protein 2.1 down from 2.7 07/27/20 Day 4 of Rocephin. Day 8 of dexamethasone Continues on high flow O2 at 50 L and FiO2 of 40%. Appetite remains poor. States he still does have a bit of a cough without sputum production More agreeable to working with therapies and nursing staff today. Vital signs remained stable. White blood cell 12.36 down from 16.01 Hemoglobin 11.4 down from 14.1 Platelet 783 down from 987 D-dimer 1.43 down from 2.02 BUN 23 down from 29 Creatinine 0.8 down from 1.0 GFR greater than 60 C-reactive protein 2.1 07/28/2020 The patient is doing well except he is requiring high flow oxygen. This will be continued as necessary to keep his saturations around 90 to 92%. The patient is also an antibiotics and these will be continued. He is on dexamethasone day 9. The patient will continue to have his vital signs monitored. The patient has been encouraged to ambulate around the room. We will continue with the DVT prophylaxis. The patient will be appropriate for discharge once his oxygen levels have improved significantly to require less oxygen. Repeat laboratory studies have been ordered. 07/29/2020 The patient is doing well he is requiring high flow oxygen to help maintain his saturations around 90%. The patient will be kept on Breathing treatments that are consisted of fluticasone and albuterol. He is also receiving breathing treatments with theophylline. The patient will have a chest x-ray tomorrow. I have also ordered repeat laboratory studies for tomorrow as well. Patient will continue to ambulate as necessary. I anticipate that if the patient's oxygen saturations have improved considerably he should be appropriate for discharge 1 to 2 days. The patient will also be kept on DVT prophylaxis. Patient's D-dimer has remained high and he will likely need to have anticoagulation if he goes home tomorrow. 07/30/20 Patient reports that he is feeling better today. States that he is coughing a small amount of sputum. Still reports a poor appetite as he says he cannot really taste most foods. Is down to 6 L per nasal cannula on the oxygen. Has completed Covid treatment with remdesivir, dexamethasone x 10 days, and convalescent plasma. Has also been treated for pneumonia with 5 days of Rocephin IV and 3 days of Zithromax IV. States he is using his incentive spirometer. Lab work reveals:CBC 16.52 up from 14.21, platelet count 840 up from 768, D-dimer 2.77 up from 1.41, C-reactive protein 1.3 down from 1.8. Chest x-ray from today reveals new linear interstitial opacity in left lung base could be atelectasis or infiltrate. Stable linear interstitial opacities in both mid lungs. 07/31/20 Patient reports that he feels good today. Currently he is on 3-1/2 L per nasal cannula. He is requesting to go home today. Denies a cough. Reports that his appetite is starting to return a little bit. Has been using his incentive spirometer and ambulating in the room. Has also been working with physical therapy. Vital signs are unremarkable and patient has been afebrile. Current lab work reveals: WBC 12.73, platelet count 732, D-dimer 1.38, potassium 3.4, C- reactive protein 2.7. - Plan Plan:: 07/30/20 Continue nebulizers. Continue incentive spirometer and Acapella. RT will continue to titrate oxygen down. Encourage activity in the room. Patient's white count and platelets are again elevated today, I suspect that this is due to an inflammatory response. Overall the patient reports that he is feeling better. I have ordered a procalcitonin level from today's lab work and we will see what that shows. Patient is anxious to go home however I cannot send him home until his oxygen needs are significantly decreased to at least 2 L. He is currently receiving Lovenox every 12 hours for DVT prophylaxis and he is on full dose aspirin for the elevated platelet count. He has had no fevers in the last 24 hours and his vital signs remained stable otherwise. Hopefully plan for discharge in the next day or 2 on home oxygen. 07/31/20 Will potentially look at a discharge for tomorrow pending that we can get the patient titrated down below 3 L of oxygen. Patient will likely be going home on home oxygen. Continue incentive spirometer. RT and nursing staff to continue working to titrate patient's oxygen. Will continue Lovenox every 12 hours for DVT prophylaxis. Continue full dose aspirin for elevated platelet count. Replace potassium orally today. Continue to monitor vital signs and intake and output. Will repeat lab work in the a.m. 08/01/20 The patient is down to 2 L per nasal cannula and has been qualified for home oxygen use. He will be discharged to home today. At this time he is not wanting home physical therapy as he states he will follow-up with Dr. Pierce regarding if he needs this or not. The patient has been instructed to stop taking his 81 mg dose of aspirin and begin taking 325 mg of aspirin until his follow-up appointment with Dr. Pierce due to thrombocytosis which is slowly resolving. Patient will also need to be reevaluated regarding oxygen needs. The patient has completed 10 days of dexamethasone, 5 days of remdesivir, 5 days of IV Rocephin, 3 days of IV Zithromax, and has received 2 units of convalescent plasma during his stay here. Lab work reveals: WBC 9.84 which is down from 12.73, platelet count 675 which is down from 732, D-dimer 1.11 which is down from 1.38, and C-reactive protein 1.8 which is down from 2.7. - Patient Instructions Diet: Usual Diet as Tolerated, Drink 8-10+ Glasses/Day Activity: As Tolerated Notify Provider of: Fever Other/Special Instructions: Discharge to home. Patient will require 2 L of oxygen per nasal cannula for home use. Follow-up with Dr. Pierce next Thursday, August 08. Follow-up regarding Covid, oxygen needs, and thrombocytosis. Aspirin [address] Pierce evaluates patient. Continue to use incentive spirometer. Continue taking protein supplements until appetite has returned. If you have increased shortness of breath, fever, or worsening symptoms, return to the emergency department. - Discharge Plan *PRESCRIPTION DRUG MONITORING PROGRAM REVIEWED*: No *COPY OF PRESCRIPTION DRUG MONITORING REPORT IN PATIENT ANANT: No Prescriptions/Med Rec: Aspirin [Ecotrin EC] 325 mg PO DAILY #20 tab.ec Home Medications: Home Meds Omeprazole [Prilosec] 20 mg PO DAILY 04/30/14 [History] Theophylline 600 mg PO DAILY 04/30/14 [History] Tiotropium [Spiriva Handihaler] 1 puff INH DAILY 04/30/14 [History] hydroCHLOROthiazide [Hydrochlorothiazide] 12.5 mg PO DAILY 04/30/14 [History] Albuterol Sulfate [Proair Digihaler] 2 puff IH Q4HR PRN 06/26/20 [History] Fluticasone Propionate [Flonase] 2 spray NASBOTH BID 06/26/20 [History] Losartan [Cozaar] 50 mg PO DAILY 06/26/20 [History] Mometasone/Formoterol [Dulera 200-5 MCG] 8.8 gm IH BID 06/26/20 [History] Pravastatin [Pravachol] 40 mg PO BEDTIME 06/26/20 [History] Tiotropium [Spiriva HandiHaler] 18 mcg INH BID 06/26/20 [History] Aspirin [Ecotrin EC] 325 mg PO DAILY #20 tab.ec 08/01/20 [Rx] Oxygen Therapy Mode: Nasal Cannula Oxygen Flow Rate (L/min): 2 Patient Handouts: COVID-19 Frequently Asked Questions, COVID-19, Prevent the Spread of COVID-19 if You Are Sick - CDC, Sepsis, Self Care, Adult Referrals: Serjio Pierce MD [Primary Care Provider] - - Discharge Summary/Plan Comment DC Time >30 min.: Yes (Setting up home oxygen use.) - General Info Date of Service: 08/01/20 Admission Dx/Problem (Free Text: Admission Diagnosis/Problem Admission Diagnosis/Problem Hypoxia Subjective Update: Patient reports feeling much better and appetite is returning. He is ready to go home. Currently on 2 L of oxygen per nasal cannula. Functional Status: Reports: Pain Controlled, Tolerating Diet, Ambulating, Urinating, Incentive Spirometry - Review of Systems General: Reports: No Symptoms HEENT: Reports: No Symptoms Pulmonary: Reports: Shortness of Breath (With activity.). Denies: Cough, Wheezing Cardiovascular: Reports: No Symptoms Gastrointestinal: Reports: No Symptoms Genitourinary: Reports: No Symptoms Musculoskeletal: Reports: No Symptoms Skin: Reports: No Symptoms Neurological: Reports: No Symptoms Psychiatric: Reports: No Symptoms - Patient Data Vitals - Most Recent: Last Vital Signs Temp 97.7 F 08/01/20 04:16 Pulse 75 08/01/20 04:16 Resp 18 08/01/20 04:16 BP 126/83 08/01/20 04:16 Pulse Ox 93 L 08/01/20 08:00 Weight - Most Recent: 181 lb I&O - Last 24 hours: Intake & Output 07/31/20 08/01/20 08/01/20 22:59 06:59 14:59 Intake Total 2140 800 Balance 2140 800 Lab Results - Last 24 hrs: Laboratory Results - last 24 hr 07/30/20 08/01/20 08/01/20 Range/Units 06:23 05:00 05:00 WBC 9.84 H (4.23-9.07) K/mm3 RBC 3.90 L (4.63-6.08) M/mm3 Hgb 11.3 L (13.7-17.5) gm/dl Hct 35.9 L (40.1-51.0) % MCV 92.1 (79.0-92.2) fl MCH 29.0 (25.7-32.2) pg MCHC 31.5 L (32.2-35.5) g/dl RDW Std Deviation 43.1 (35.1-43.9) fL Plt Count 675 H (163-337) K/mm3 MPV 9.0 L (9.4-12.3) fl Neut % (Auto) 76.0 H (34.0-67.9) % Lymph % (Auto) 12.9 L (21.8-53.1) % Carbon % (Auto) 8.3 (5.3-12.2) % Eos % (Auto) 0.5 L (0.8-7.0) Baso % (Auto) 0.1 (0.1-1.2) % Neut # (Auto) 7.47 H (1.78-5.38) K/mm3 Lymph # (Auto) 1.27 L (1.32-3.57) K/mm3 Carbon # (Auto) 0.82 (0.30-0.82) K/mm3 Eos # (Auto) 0.05 (0.04-0.54) K/mm3 Baso # (Auto) 0.01 (0.01-0.08) K/mm3 Manual Slide Review Abnormal smear D-Dimer, Quantitative 1.11 H (0.19-0.50) mg/L Sodium (136-145) mEq/L Potassium (3.5-5.1) mEq/L Chloride (98-107) mEq/L Carbon Dioxide (21-32) mEq/L Anion Gap (5-15) BUN (7-18) mg/dL Creatinine (0.7-1.3) mg/dL Est Cr Clr Drug Dosing mL/min Estimated GFR (MDRD) (>60) mL/min BUN/Creatinine Ratio (14-18) Glucose (80-115) mg/dL Calcium (8.5-10.1) mg/dL Phosphorus (2.6-4.7) mg/dL Magnesium (1.8-2.4) mg/dl Total Bilirubin (0.2-1.0) mg/dL AST (15-37) U/L ALT (16-63) U/L Alkaline Phosphatase (46-116) U/L C-Reactive Protein (<1.0) mg/dL Total Protein (6.4-8.2) g/dl Albumin (3.4-5.0) g/dl Globulin gm/dL Albumin/Globulin Ratio (1-2) Procalcitonin <0.05 (<0.10) ng/mL 08/01/20 Range/Units 05:00 WBC (4.23-9.07) K/mm3 RBC (4.63-6.08) M/mm3 Hgb (13.7-17.5) gm/dl Hct (40.1-51.0) % MCV (79.0-92.2) fl MCH (25.7-32.2) pg MCHC (32.2-35.5) g/dl RDW Std Deviation (35.1-43.9) fL Plt Count (163-337) K/mm3 MPV (9.4-12.3) fl Neut % (Auto) (34.0-67.9) % Lymph % (Auto) (21.8-53.1) % Carbon % (Auto) (5.3-12.2) % Eos % (Auto) (0.8-7.0) Baso % (Auto) (0.1-1.2) % Neut # (Auto) (1.78-5.38) K/mm3 Lymph # (Auto) (1.32-3.57) K/mm3 Carbon # (Auto) (0.30-0.82) K/mm3 Eos # (Auto) (0.04-0.54) K/mm3 Baso # (Auto) (0.01-0.08) K/mm3 Manual Slide Review D-Dimer, Quantitative (0.19-0.50) mg/L Sodium 139 (136-145) mEq/L Potassium 4.1 (3.5-5.1) mEq/L Chloride 105 (98-107) mEq/L Carbon Dioxide 29 (21-32) mEq/L Anion Gap 9.1 (5-15) BUN 18 (7-18) mg/dL Creatinine 0.8 (0.7-1.3) mg/dL Est Cr Clr Drug Dosing 85.29 mL/min Estimated GFR (MDRD) > 60 (>60) mL/min BUN/Creatinine Ratio 22.5 H (14-18) Glucose 87 (80-115) mg/dL Calcium 8.3 L (8.5-10.1) mg/dL Phosphorus 2.8 (2.6-4.7) mg/dL Magnesium 2.0 (1.8-2.4) mg/dl Total Bilirubin 0.4 (0.2-1.0) mg/dL AST 33 (15-37) U/L ALT 66 H (16-63) U/L Alkaline Phosphatase 52 (46-116) U/L C-Reactive Protein 1.8 H* (<1.0) mg/dL Total Protein 5.7 L (6.4-8.2) g/dl Albumin 2.2 L (3.4-5.0) g/dl Globulin 3.5 gm/dL Albumin/Globulin Ratio 0.6 L (1-2) Procalcitonin (<0.10) ng/mL Med Orders - Current: Current Medications Acetaminophen (Tylenol) 650 mg PO Q4H PRN PRN Reason: Pain (Mild 1-3)/fever Albuterol (Proventil Neb Soln) 2.5 mg NEB Q2H PRN PRN Reason: Shortness Of Breath/wheezing Albuterol (Proventil Hfa) 0 gm INH Q4H PRN PRN Reason: Wheezing Last Admin: 08/01/20 08:00 Dose: 2 puff Documented by: Aspirin (Ecotrin) 325 mg PO DAILY [facility] Last Admin: 08/01/20 08:41 Dose: 325 mg Documented by: Enoxaparin Sodium (Lovenox) 40 mg SUBCUT Q12H [facility] Last Admin: 08/01/20 08:41 Dose: 40 mg Documented by: Fluticasone Propionate (Flonase) 0 gm NASBOTH BID [facility] Last Admin: 08/01/20 08:42 Dose: 2 spray Documented by: Glycopyrrolate (Seebri Neohaler) 15.6 mcg IH BID [facility] Last Admin: 08/01/20 08:00 Dose: 1 cap.ec Documented by: Mometasone Furoate/Formoterol Fumar (Dulera 200-5 Mcg) 0 puff INH BID [facility] Last Admin: 08/01/20 08:00 Dose: 2 puff Documented by: Ondansetron HCl (Zofran) 4 mg IV Q6H PRN PRN Reason: Nausea/Vomiting Last Admin: 07/23/20 00:35 Dose: 4 mg Documented by: Pantoprazole Sodium (Protonix) 40 mg PO DAILY@0700 [facility] Last Admin: 08/01/20 06:46 Dose: 40 mg Documented by: Simvastatin (Zocor) 20 mg PO BEDTIME [facility] Last Admin: 07/31/20 20:24 Dose: 20 mg Documented by: Sodium Chloride (Saline Flush) 10 ml FLUSH ASDIRECTED PRN PRN Reason: Keep Vein Open Last Admin: 07/20/20 08:50 Dose: 10 ml Documented by: Theophylline (Theophylline Anhydrous) 600 mg PO DAILY [facility] Last Admin: 08/01/20 08:42 Dose: 600 mg Documented by: Discontinued Medications Aspirin (Halfprin) 81 mg PO DAILY [facility] Last Admin: 07/26/20 08:24 Dose: 81 mg Documented by: Aspirin (Halfprin) 243 mg PO ONETIME ONE Stop: 07/26/20 11:01 Last Admin: 07/26/20 12:37 Dose: 243 mg Documented by: Dexamethasone (Dexamethasone) 6 mg PO DAILY [facility] Stop: 07/29/20 09:01 Last Admin: 07/29/20 08:55 Dose: 6 mg Documented by: Enoxaparin Sodium (Lovenox) 40 mg SUBCUT Q12H [facility] Last Admin: 07/24/20 00:10 Dose: 40 mg Documented by: Potassium Chloride 10 meq/ (Premix) 100 mls @ 100 mls/hr IV Q1H [facility] Stop: 07/20/20 13:59 Last Admin: 07/20/20 15:20 Dose: 100 mls/hr Documented by: Sodium Chloride (Normal Saline) 1,000 mls @ 150 mls/hr IV ASDIRECTED [facility] Last Admin: 07/20/20 10:17 Dose: 150 mls/hr Documented by: Remdesivir 200 mg/ Sodium (Chloride) 250 mls @ 250 mls/hr IV ONETIME ONE Stop: 07/20/20 13:29 Last Admin: 07/20/20 13:00 Dose: 250 mls/hr Documented by: Remdesivir 100 mg/ Sodium (Chloride) 100 mls @ 100 mls/hr IV Q24H [facility] Stop: 07/24/20 13:29 Last Admin: 07/24/20 12:33 Dose: 100 mls/hr Documented by: Sodium Chloride (Normal Saline) 250 mls @ 125 mls/hr IV ASDIRECTED [facility] Stop: 07/20/20 23:00 Last Admin: 07/20/20 15:26 Dose: 125 mls/hr Documented by: Potassium Chloride/Sodium Chloride (Normal Saline With 40 Meq Kcl) 500 mls @ 50 mls/hr IV ASDIRECTED [facility] Potassium Chloride 10 meq/ (Premix) 100 mls @ 100 mls/hr IV Q1H [facility] Stop: 07/21/20 14:29 Last Admin: 07/21/20 15:58 Dose: 100 mls/hr Documented by: Ceftriaxone Sodium 2 gm/ (Sodium Chloride) 100 mls @ 200 mls/hr IV Q24H [facility] Stop: 07/28/20 11:29 Last Admin: 07/28/20 11:24 Dose: 200 mls/hr Documented by: Azithromycin 500 mg/ Sodium (Chloride) 250 mls @ 250 mls/hr IV Q24H [facility] Stop: 07/26/20 14:29 Last Admin: 07/26/20 14:08 Dose: 250 mls/hr Documented by: Sodium Chloride (Normal Saline) 100 mls @ 75 mls/hr IV ASDIRECTED [facility] Stop: 07/26/20 13:00 Iopamidol (Isovue-370 (76%)) 100 ml IVPUSH ONETIME ONE Stop: 07/26/20 10:55 Last Admin: 07/26/20 11:43 Dose: Not Given Documented by: Potassium Chloride (Klor-Con M20) 40 meq PO ONETIME ONE Stop: 07/20/20 21:01 Last Admin: 07/20/20 21:06 Dose: 40 meq Documented by: Potassium Chloride (Klor-Con M20) 40 meq PO ONETIME ONE Stop: 07/27/20 07:56 Last Admin: 07/27/20 09:30 Dose: 40 meq Documented by: Potassium Chloride (Klor-Con M20) 20 meq PO ONETIME ONE Stop: 07/27/20 09:16 Last Admin: 07/27/20 09:31 Dose: Not Given Documented by: Potassium Chloride (Klor-Con M20) 40 meq PO Q4H [facility] Stop: 07/31/20 12:01 Last Admin: 07/31/20 12:28 Dose: 40 meq Documented by: Sodium Chloride (Saline Flush) 10 ml FLUSH ONETIME PRN PRN Reason: IV FLUSH Stop: 07/26/20 13:00 Theophylline (Theophylline Anhydrous) 300 mg PO DAILY [facility] Last Admin: 07/30/20 19:41 Dose: Not Given Documented by: - Exam Quality Assessment: Reports: Supplemental Oxygen, DVT Prophylaxis General: Reports: Alert, Oriented, Cooperative, No Acute Distress HEENT: Reports: Pupils Equal, Pupils Reactive, Mucous Membr. Moist/[place] Neck: Reports: Supple, Trachea Midline. Denies: Lymphadenopathy Lungs: Reports: Normal Respiratory Effort, Crackles (Crackles noted to the right base.) Cardiovascular: Reports: Regular Rate, Regular Rhythm GI/Abdominal Exam: Normal Bowel Sounds, Soft, Non-Tender, No Distention (Male) Exam: Deferred Rectal (Males) Exam: Deferred Back Exam: Reports: Normal Inspection, Full Range of Motion Extremities: Normal Inspection, Normal Range of Motion, Non-Tender, No Pedal E dago, Normal Capillary Refill Skin: Reports: Warm, Dry, Intact Neurological: Reports: No New Focal Deficit Psy/Mental Status: Reports: Alert, Normal Affect, Normal Mood
[2020-08-01] MEDS ORDERED: FLU VACC QS2020-21(6MOS UP)/PF 60 MCG/0.5 ML SYRINGE IM ONE (09:45)
--- NOTE | 2020-08-01 10:49 | CR ---
PROCEDURE INFORMATION: Exam: XR Chest, 1 View Exam date and time: 07/24/2020 8:55 AM Age: 64 years old Clinical indication: Other: Elevated white count, decreased lung sounds mostly on right side TECHNIQUE: Imaging protocol: XR of the chest Views: 1 view. COMPARISON: CR Chest 1V Frontal 07/20/2020 8:12 AM FINDINGS: Lungs: Interval resolution of bibasilar opacities. Prominent interstitial changes in the right and left mid lung/perihilar regions.. No consolidation. Pleural space: Unremarkable. No pleural effusion. No pneumothorax. Heart/Mediastinum: Unremarkable. Stable borderline cardiomegaly. Bones/joints: Unremarkable. IMPRESSION: Interval resolution of bibasilar airspace opacities. Radiographic findings otherwise unchanged. Thank you for allowing us to participate in the care of your patient. Dictated and Authenticated by: Richard Paige MD 07/24/2020 11:57 AM Central Time ([place] & [place]) CONFIDENTIALITY STATEMENT This report is intended only for use by the referring physician, and only in accordance with law. If you received this in error, call [phone]. Page 1 of 1 MTDD
--- NOTE | 2020-08-02 10:06 | CT ---
"PROCEDURE INFORMATION: Exam: CT Chest With Contrast Exam date and time: 07/26/2020 10:48 AM Age: 64 years old Clinical indication: Other: Elevated platelets, increasing d-dimer; Additional info: Looking for pe TECHNIQUE: Imaging protocol: Computed tomography of the chest with intravenous contrast. 3D rendering (Not supervised by radiologist): MIP and/or 3D reconstructed images were created by the technologist. Contrast material: ISOVUE 370; Contrast volume: 100 ml; Contrast route: INTRAVENOUS (IV); COMPARISON: CR Chest 1V Frontal 07/24/2020 8:55 AM FINDINGS: Lungs: Extensive chronic appearing interstitial infiltrates in both lungs with possible superimposed consolidation in the right lower lobe. No pulmonary mass. Pleural space: Unremarkable. No pneumothorax. No pleural effusion. Heart: Unremarkable. No cardiomegaly. No pericardial effusion. Aorta: Unremarkable. No aortic aneurysm. Lymph nodes: Unremarkable. No enlarged lymph nodes. Large hiatus hernia. Bones/joints: Unremarkable. No acute fracture. Soft tissues: Unremarkable. IMPRESSION: 1. No evidence of acute PE. 2. Nonspecific chronic interstitial lung disease with possible superimposed consolidation in the right lower lobe. 3. Hiatus hernia. Thank you for allowing us to participate in the care of your patient. JAY VO | Final Radiology Report CONFIDENTIALITY STATEMENT This report is intended only for use by the referring physician, and only in accordance with law. If you received this in error, call [phone]. Page 2 of 2 Dictated and Authenticated by: Richard Paige MD 07/26/2020 12:54 PM Central Time ([place] & [place]) DANTE"
--- NOTE | 2020-08-02 14:22 | CR ---
PROCEDURE INFORMATION: Exam: XR Chest, 1 View Exam date and time: 07/30/2020 7:56 AM Age: 64 years old Clinical indication: Other: Hypoxia, pneumonia TECHNIQUE: Imaging protocol: XR of the chest Views: 1 view. COMPARISON: CT Ang Chest 07/26/2020 10:48 AM FINDINGS: Lungs: Deeper inspiration the current exam. New linear interstitial opacity in left lung base laterally could be atelectasis or infiltrate. Stable interstitial opacities in both mid lungs, predominantly in the peripheral distribution. Pleural space: Unremarkable. No pleural effusion. No pneumothorax. Heart/Mediastinum: Esophageal hiatal hernia. Aortic calcifications. Bones/joints: Unremarkable. IMPRESSION: 1. New linear interstitial opacity in left lung base could be atelectasis or infiltrate 2. Stable linear interstitial opacities in both mid lungs Thank you for allowing us to participate in the care of your patient. Dictated and Authenticated by: Sissy Godoy MD 07/30/2020 9:39 AM Central Time ([place] & [place]) DANTE
== END 2020-08-01 10:20 | disposition home or self-care (01) | DRG 137 ==
LOC: SUPCPDRO 07:58 → JD.ED 07:58 → JD.MS 11:58
PROVIDERS: ADMIT Family Medicine; ATTEND Family Medicine
PROC: XW13325 Transfusion of Convalescent Plasma (Nonautologous) into Peripheral Vein, Percutaneous Approach, New Technology Group 5 (ICD-10-PCS; principal; 2020-07-20)
PROC: XW033E5 Introduction of Remdesivir Anti-infective into Peripheral Vein, Percutaneous Approach, New Technology Group 5 (ICD-10-PCS; 2020-07-20)
PROC: 8E0ZXY6 Isolation (ICD-10-PCS; 2020-07-20)
PROC: 5A0955A Assistance with Respiratory Ventilation, Greater than 96 Consecutive Hours, High Flow/Velocity Cannula (ICD-10-PCS; 2020-07-20)
PROC: 3E02340 Introduction of Influenza Vaccine into Muscle, Percutaneous Approach (ICD-10-PCS; 2020-08-01)
DX: U07.1 COVID-19 (principal); J12.89 Other viral pneumonia; E87.6 Hypokalemia; R09.02 Hypoxemia; H54.7 Unspecified visual loss; J44.0 Chronic obstructive pulmonary disease with (acute) lower respiratory infection; I10 Essential (primary) hypertension; E78.00 Pure hypercholesterolemia, unspecified; N28.9 Disorder of kidney and ureter, unspecified; Z23 Encounter for immunization; Z99.81 Dependence on supplemental oxygen; Z79.51 Long term (current) use of inhaled steroids; Z79.82 Long term (current) use of aspirin; Z79.899 Other long term (current) drug therapy; K21.9 Gastro-esophageal reflux disease without esophagitis; Z86.19 Personal history of other infectious and parasitic diseases; Z87.891 Personal history of nicotine dependence
CPT/HCPCS: 36415; 36430; 36600; 71045; 71045-26; 71275; 71275-26; 80053; 80198; 82306; 82728; 82803; 83605; 83615; 83735; 83880; 84100; 84145; 84484; 85025; 85379; 85610; 85730; 86140; 86900; 86901; 87040; 90686; 93005; 93010; 94640; 94667; 94668; 94761; 94762; 96365; 96366; 97110-GO; 97110-GP; 97116-GP; 97162-GP; 97165-GO; 97530-GO; 97530-GP; 99284; 99285-25; A9270-GY; G0008; J0456; J0696; J1650; J2405; J3480; J7030; J7050; J8540; P9017; U0002